=== PATIENT | female | born 1950 | race Caucasian/White ===

== ENCOUNTER 2017-09-18 11:16 | Emergency (ER) | payer OTHER ==
--- OUTSIDE RECORDS SUMMARY | 2017-09-18 11:18 | XMS REPORT | Summary of Care ---
:1950 Author Name RefugioMarkoEveline Address Unavailable Unavailable , Care Team Providers Name Role Phone RefugioMarkoEveline Unavailable Unavailable Functional Status Name Dates Details Functional status health issues are not documented Status: Name Dates Details Cognitive status health issues are not documented Status: Problems Name Dates Details Type III open displaced supracondylar fracture of left femur with intracondylar extension, initial encounter (821.33, S72.462C) Status: Active Displaced transverse fracture of shaft of left ulna, initial encounter for open fracture type IIIA, IIIB, or IIIC (813.32, S52.222C) Status: Active Closed traumatic displaced fracture of shaft of left femur (821.01, S72.302A) Status: Active Displaced fracture of neck of right talus, initial encounter for closed fracture (825.21, S92.111A) Status: Active Medications Name Dates Details Medications not documented Allergies and Adverse Reactions Name Dates Details Allergy history not documented Status: Procedures Procedure Dates Details Procedures not documented Immunization Name Dates Details Immunizations not documented Social History Name Dates Details Unknown if ever smoked Vital Signs Date Test Result Details No Known Vitals to report Results Date Description Value Details Results not documented Plan of Care Name Dates Details Planned Observations Planned Goals not documented Instructions Name Dates Details Instructions not documented Encounters Appointment; RICCO NEWSOME M.D. On: 08-Feb-2017 9:00 Encounter Diagnosis: Problem not documented Appointment; RICCO NEWSOME M.D. On: 23-Feb-2017 7:30 Encounter Diagnosis: Problem not documented Appointment; RICCO NEWSOME M.D. On: 08-Mar-2017 12:00 Encounter Diagnosis: Problem not documented Appointment; ISABELLA CARMICHAEL NP On: 22-Mar-2017 12:00 Encounter Diagnosis: Problem not documented Appointment; RICCO NEWSOME M.D. On: 05-Apr-2017 12:15 Encounter Diagnosis: Problem not documented Appointment; RICCO NEWSOME M.D. On: 17-May-2017 12:00 Encounter Diagnosis: Problem not documented Appointment; RICCO NEWSOME M.D. On: 05-Jul-2017 12:30 Encounter Diagnosis: Problem not documented
[2017-09-18] MEDS ORDERED: ONDANSETRON 4 MG/2 ML VIAL ONE (11:49)
[2017-09-18] MEDS ORDERED: MORPHINE 4 MG/ML SYR ONE (11:49)
[2017-09-18 12:06] LABS: Potassium 3.7 mmol/L (3.5-5.1)
[2017-09-18 12:13] LABS: Absolute Monocytes 0.4 K/uL (0.1-1.3); Basophils % 0.6 % (0-1.3); Eosinophils % 3.2 % (0-4.4); Hematocrit 42.7 % (36.0-45.0); Lymphocytes % 18.2 % (15.3-44.8); MCV 92.9 fL (80-100); MPV 9.6 fL (7.6-11.3); Monocytes % 6.6 % (3.3-12.3); RBC Red Blood Cell Count 4.59 M/uL (3.86-4.86)
--- NOTE | 2017-09-18 13:08 | RAD REPORT ---
EXAM DESCRIPTION: RAD - Hip Left 2 View - 09/18/2017 12:09 pm CLINICAL HISTORY: Left hip pain status post fall FINDINGS: The lesser trochanter is avulsed superiorly. Mildly displaced intertrochanteric fracture i s seen. Fracture line probably involves the greater trochanter. No dislocation is seen. An intramedullary jose has been placed into the femoral diaphysis for a prior fracture.
--- NOTE | 2017-09-18 13:08 | RAD REPORT ---
EXAM DESCRIPTION: RAD - Pelvis - 09/18/2017 12:11 pm CLINICAL HISTORY: Pelvic pain status post fall FINDINGS: The lesser trochanter is avulsed superiorly. Mildly displaced intertrochanteric fracture is seen. Fra cture line probably involves the greater trochanter. No dislocation is seen. An intramedullary jose has been placed into the femoral diaphysis for a prior fracture.
--- NOTE | 2017-09-18 13:08 | RAD REPORT ---
EXAM DESCRIPTION: RAD - Femur Left - 09/18/2017 12:36 pm CLINICAL HISTORY: Left leg pain status post fall FINDINGS: Intramedullary jose, sideplate and screws affix a distal femoral fracture in good alignment No acute fracture is seen involving the mid and distal left femur. The bones are osteoporotic Please refer to left hip and pelvis report for proximal femoral findings.
[2017-09-18 14:42] LABS: Urine Blood NEGATIVE (NEG); Urine Glucose NEGATIVE (NEG); Urine Protein NEGATIVE (NEG); Urine Specific Gravity 1.015 (1.005-1.030)
[2017-09-18] MEDS ORDERED: FENTANYL CITR 100 MCG/2 ML ONE ×2 (15:49→17:26)
--- NOTE | 2017-09-18 16:37 | ER ---
Nurse's Notes [facility] Name: Cait Larose Age: 67 yrs Sex: Female : 1950 Arrival Date: 09/18/2017 Time: 11:18 Bed 16 Private MD: Diagnosis: Intertrochanteric fracture of femur Presentation: 09/18 11:19 Presenting complaint: EMS states: Pt fell from bed this AM, denies LOC, c/o pain in L ph hip, pt hx of L hip pain r/t previous surgeries, L leg noted to be shortened and outwardly rotated, pt rated pain 10/10, 50 mcg Fentanyl administered IV, pain decreased to 5/10 at this time. Transition of care: patient was not received from another setting of care. Onset of symptoms was September 18, 2017. Risk Assessment: Do you want to hurt yourself or someone else? Patient reports no desire to harm self or others. Initial Sepsis Screen: Does the patient meet any 2 criteria? No. Patient's initial sepsis screen is negative. Does the patient have a suspected source of infection? No. Patient's initial sepsis screen is negative. Note Pt w/ bruise noted to L side of forehead, reports falling yesterday as well, states, " I was rushing to answer the door and I fell then too." Pt denies LOC. Care prior to arrival: Medication(s) given: Fentanyl 50 mcg IV initiated. 20 GA, in the right antecubital area. 11:19 Method Of Arrival: EMS: [facility] ph 11:19 Acuity: LESLEE 3 ph Historical: - Allergies: 11:31 No Known Allergies; ph - Home Meds: 11:31 duloxetine 60 mg oral cpDR 1 cap once daily [Active]; metoprolol tartrate 25 mg Oral ph tab 1 tab 2 times per day [Active]; furosemide 40 mg Oral tab 1 tab once daily [Active]; Vitamin D Oral 5000 unit daily [Active]; biotin 5000 mcg oral cap daily [Active]; - PMHx: 11:31 COPD; Hypertension; ph 12:06 Traumatic Brain Injury; ph - PSHx: 11:31 bone graft L leg; ph - Immunization history:: Adult Immunizations unknown. - Social history:: Smoking status: Patient uses tobacco products, smokes one pack cigarettes per day. - Ebola Screening: : No symptoms or risks identified at this time. Screenin:34 Abuse screen: Denies threats or abuse. Denies injuries from another. Nutritional ph screening: No deficits noted. Tuberculosis screening: No symptoms or risk factors identified. Fall Risk Fall in past 12 months (25 points). No secondary diagnosis (0 pts). IV access (20 points). Ambulatory Aid- None/Bed Rest/Nurse Assist (0 pts). Gait- Weak (10 pts.). Mental Status- Oriented to own ability (0 pts). Total Dsouza Fall Scale indicates High Risk Score (45 or more points). Fall prevention measures have been instituted. Side Rails Up X 2 Placed Close to Nursing Station Frequent Obs/Assessments Occuring As available patient and family educated on Fall Prevention Program and Strategies. Assessment: 11:35 General: Appears in no apparent distress. uncomfortable, slender, Behavior is calm, ph cooperative, appropriate for age, Denies fever, feeling ill. Pain: Complains of pain in left hip Pain currently is 5 out of 10 on a pain scale. at worst was 10 out of 10 on a pain scale. Neuro: Level of Consciousness is awake, alert, obeys commands, Oriented to person, place, time, situation. Cardiovascular: Capillary refill < 3 seconds Patient's skin is warm and dry. Pulses are palpable in right dorsalis pedis artery and left dorsalis pedis artery. Respiratory: Airway is patent Respiratory effort is even, unlabored, Respiratory pattern is regular, symmetrical. GI: No signs and/or symptoms were reported involving the gastrointestinal system. Derm: Skin is intact, is healthy with good turgor, Skin is pink, warm \\T\\ dry. Bruising that is dark purple, on left side of forehead. Musculoskeletal: Circulation, motion, and sensation intact. L leg noted to be shortened and rotated outwards. 12:35 Reassessment: Patient appears in no apparent distress at this time. Patient and/or ph family updated on plan of care and expected duration. Pain level reassessed. Patient is alert, oriented x 3, equal unlabored respirations, skin warm/dry/pink. 14:00 Reassessment: Patient appears in no apparent distress at this time. No changes from ph previously documented assessment. Patient and/or family updated on plan of care and expected duration. Pain level reassessed. Patient is alert, oriented x 3, equal unlabored respirations, skin warm/dry/pink. 15:11 Reassessment: Patient appears in no apparent distress at this time. Patient and/or ph family updated on plan of care and expected duration. Pain level reassessed. Patient is alert, oriented x 3, equal unlabored respirations, skin warm/dry/pink. Pt resting quietly, rates pain 3/10 and denies nausea at this time, states, " The pain isn't too bad unless I move around a lot." Family at bedside, VSS, will continue to monitor. 16:45 Reassessment: Patient appears in no apparent distress at this time. Patient and/or ph family updated on plan of care and expected duration. Pain level reassessed. Pt asleep, respirations even and unlabored, report called to RYNE Cardenas at [facility] ED, awaiting EMS for transport. 17:38 Reassessment: Patient appears in no apparent distress at this time. Patient and/or ph family updated on plan of care and expected duration. Pain level reassessed. Patient is alert, oriented x 3, equal unlabored respirations, skin warm/dry/pink. [facility] at bedside, report given to leather splitter, pt medicated for pain before transfer. Vital Signs: 11:25 BP 171 / 70; Pulse 64; Resp 18; Temp 97.8; Pulse Ox 96% on 2 lpm NC; Weight 50.35 kg; ph Height 5 ft. 2 in. (157.48 cm); Pain 5/10; 12:19 BP 173 / 55; Pulse 61; Resp 19; Pulse Ox 95% on R/A; mh5 14:22 BP 132 / 48; Pulse 44; Resp 18; Pulse Ox 93% on R/A; mh5 15:13 BP 150 / 52; Pulse 72; Resp 20; Pulse Ox 94% on R/A; ph 16:00 BP 135 / 56; Pulse 71; Resp 16; Pulse Ox 94% on R/A; ph 17:10 BP 141 / 51; Pulse 64; Resp 18; Pulse Ox 94% on R/A; Pain 2/10; ph 11:25 Body Mass Index 20.30 (50.35 kg, 157.48 cm) ED Course: 11:18 Patient arrived in ED. ph 11:20 Raheel Roe MD is Attending Physician. tw4 11:25 Triage completed. ph 11:26 Arm band placed on. ph 11:35 Patient has correct armband on for positive identification. Placed in gown. Bed in low ph position. Call light in reach. Side rails up X2. Pulse ox on. NIBP on. Warm blanket given. 11:35 Maintain EMS IV. Dressing intact. Good blood return noted. Site clean \\T\\ dry. Gauge \\T\\ ph site: 20 RAC. 11:46 Initial lab(s) drawn, by me, sent to lab. Maintain EMS IV. Dressing intact. mh5 11:47 Patient has correct armband on for positive identification. Fall risk band placed. mh5 Placed in gown. Bed in low position. Call light in reach. Side rails up X2. Warm blanket given. Pillow given. svp research and strategic analysis on. Pulse ox on. NIBP on. 11:47 Basic Metabolic Panel Sent. mh5 11:47 Basic Metabolic Panel Sent. 5 11:47 CBC with Diff Sent. 5 11:47 Creatinine for Radiology Sent. 5 11:47 Type And Screen Sent. mh5 12:05 Leonor Lee, RN is Primary Nurse. ph 12:06 X-ray completed. Portable x-ray completed in exam room. Patient tolerated procedure sw well. 12:10 XRAY Pelvis In Process Unspecified. EDMS 12:10 Hip Left 2 View XRAY In Process Unspecified. EDMS 12:19 X-ray completed. Portable x-ray completed in exam room. Patient tolerated procedure jb2 well. 12:20 Femur Left XRAY In Process Unspecified. EDMS 14:21 Silveira cath inserted, using sterile technique, 16 Fr., by vt, balloon inflated, to 5 gravity drainage, urine specimen collected. 14:22 Urine Dipstick--Ancillary (enter results) Sent. mh5 15:14 No provider procedures requiring assistance completed. ph 17:40 Patient transferred, IV remains in place. ph Administered Medications: 12:54 CANCELLED (Physician Discretion): TORadol 30 mg IVP once tw4 12:56 Drug: morphine 4 mg Route: IVP; Site: right antecubital; ph 15:59 Follow up: Response: No adverse reaction; Marked relief of symptoms ch 12:56 Drug: Zofran 4 mg Route: IVP; Site: right antecubital; ph 15:59 Follow up: Response: No adverse reaction ch 15:59 Drug: fentaNYL (PF) 25 mcg Route: IVP; Site: right antecubital; ch 16:40 Follow up: Response: No adverse reaction; Pain is decreased ph 17:25 Drug: fentaNYL (PF) 25 mcg Route: IVP; Site: right antecubital; ph 17:38 Follow up: Response: No adverse reaction ph 17:37 Drug: fentaNYL (PF) 25 mcg Route: IVP; Site: right antecubital; ph 17:39 Follow up: Response: No adverse reaction ph Output: 17:37 Urine: 300ml (Silveira); Total: 300ml. ph Outcome: 16:36 ER care complete, transfer ordered by . tw4 17:40 Patient left the ED. ph 17:40 Transferred by ground EMS to [facility], Transfer form completed. X-rays sent ph w/ patient. 17:40 Condition: stable 17:40 Instructed on the need for transfer. Signatures: Dispatcher [employer] EDYesy Noel, RYNE MICHELE Jaya Gaxiola Patricia, RN RN Rashi, Chantal Mccray [facility] Raheel Roe MD MD tw4 Corrections: (The following items were deleted from the chart) 11:34 11:25 BP 171 / 70; Pulse 64bpm; Resp 18bpm; Pulse Ox 96% 2 lpm Nasal Cannula; Temp ph 97.8F; Pain 5/10; ph
--- NOTE | 2017-09-18 16:37 | EDPHYS ---
Physician Documentation [facility] Name: Cait Larose Age: 67 yrs Sex: Female : 1950 Arrival Date: 09/18/2017 Time: 11:18 Bed 16 Private MD: ED Physician Raheel Roe HPI: 09/18 14:21 This 67 yrs old Female presents to ER via EMS with complaints of Hip Pain. tw4 14:21 The patient or guardian reports an injury, pain. that occurred at home, sustained from tw4 a fall, the left lower extremity is shortened, left leg is externally rotated, The patient is not able to ambulate. Patient is not able to bear weight. The complaints affect the left upper thigh. Onset: The symptoms/episode began/occurred today. Modifying factors: The symptoms are alleviated by nothing, the symptoms are aggravated by nothing. Associated signs and symptoms: Loss of consciousness: the patient experienced no loss of consciousness. Severity of symptoms: At their worst the symptoms were moderate, in the emergency department the symptoms are unchanged. The patient has not experienced similar symptoms in the past. Historical: - Allergies: 11: No Known Allergies; ph - Home Meds: 11:31 duloxetine 60 mg oral cpDR 1 cap once daily [Active]; metoprolol tartrate 25 mg Oral ph tab 1 tab 2 times per day [Active]; furosemide 40 mg Oral tab 1 tab once daily [Active]; Vitamin D Oral 5000 unit daily [Active]; biotin 5000 mcg oral cap daily [Active]; - PMHx: 11:31 COPD; Hypertension; ph 12:06 Traumatic Brain Injury; ph - PSHx: 11:31 bone graft L leg; ph - Immunization history:: Adult Immunizations unknown. - Social history:: Smoking status: Patient uses tobacco products, smokes one pack cigarettes per day. - Ebola Screening: : No symptoms or risks identified at this time. ROS: 14:21 Constitutional: Negative for fever, chills, and weight loss, Cardiovascular: Negative tw4 for chest pain, palpitations, and edema, Respiratory: Negative for shortness of breath, cough, wheezing, and pleuritic chest pain, Abdomen/GI: Negative for abdominal pain, nausea, vomiting, diarrhea, and constipation. 14:21 MS/extremity: Positive for injury or acute deformity, decreased range of motion, deformity, of the left upper thigh. Exam: 14:21 Constitutional: This is a well developed, well nourished patient who is awake, alert, tw4 and in no acute distress. Head/Face: Normocephalic, atraumatic. Chest/axilla: Normal chest wall appearance and motion. Nontender with no deformity. No lesions are appreciated. Cardiovascular: Regular rate and rhythm with a normal S1 and S2. No gallops, murmurs, or rubs. Normal PMI, no JVD. No pulse deficits. Respiratory: Lungs have equal breath sounds bilaterally, clear to auscultation and percussion. No rales, rhonchi or wheezes noted. No increased work of breathing, no retractions or nasal flaring. Abdomen/GI: Soft, non-tender, with normal bowel sounds. No distension or tympany. No guarding or rebound. No evidence of tenderness throughout. Back: No spinal tenderness. No costovertebral tenderness. Full range of motion. 14:21 Musculoskeletal/extremity: Extremities: noted in the left upper thigh: decreased ROM, deformity, ROM: limited active range of motion due to pain, limited passive range of motion due to pain, Circulation is intact in all extremities. Vital Signs: 11:25 BP 171 / 70; Pulse 64; Resp 18; Temp 97.8; Pulse Ox 96% on 2 lpm NC; Weight 50.35 kg; ph Height 5 ft. 2 in. (157.48 cm); Pain 5/10; 12:19 BP 173 / 55; Pulse 61; Resp 19; Pulse Ox 95% on R/A; mh5 14:22 BP 132 / 48; Pulse 44; Resp 18; Pulse Ox 93% on R/A; mh5 15:13 BP 150 / 52; Pulse 72; Resp 20; Pulse Ox 94% on R/A; ph 16:00 BP 135 / 56; Pulse 71; Resp 16; Pulse Ox 94% on R/A; ph 17:10 BP 141 / 51; Pulse 64; Resp 18; Pulse Ox 94% on R/A; Pain 2/10; ph 11:25 Body Mass Index 20.30 (50.35 kg, 157.48 cm) ph MDM: 11:20 Patient medically screened. tw4 21:32 Differential diagnosis: hip fracture, intertrochanteric fracture, femoral neck tw4 fracture, femoral shaft fracture. Data reviewed: vital signs, nurses notes. Data interpreted: Pulse oximetry: Interpretation: normal. Test interpretation: by ED physician or midlevel provider: plain radiologic studies. Counseling: I had a detailed discussion with the patient and/or guardian regarding: the historical points, exam findings, and any diagnostic results supporting the discharge/admit diagnosis, lab results, radiology results. Medication response: morphine markedly relieved the patient's pain. Symptoms have improved. Response to treatment: and as a result, I will admit patient. Physician consultation: Tian Day MD after a discussion of the case, a recommendation for transfer for higher level of care is made. ED course: D/W pt's orthopedic surgeon service at [facility] will accept for transfer. 09/18 11:23 Order name: Basic Metabolic Panel tw4 09/18 11:23 Order name: CBC with Diff; Complete Time: 12:47 tw4 09/18 11:23 Order name: Creatinine for Radiology; Complete Time: 12:47 tw4 09/18 11:23 Order name: Type And Screen; Complete Time: 12:47 tw4 09/18 11:23 Order name: Basic Metabolic Panel; Complete Time: 12:47 EDMS 09/18 14:21 Order name: Urine Dipstick--Ancillary (enter results); Complete Time: 15:53 bd 09/18 11:23 Order name: XRAY Pelvis; Complete Time: 13:51 tw4 09/18 11:23 Order name: Hip Left 2 View XRAY; Complete Time: 13:51 tw4 09/18 12:14 Order name: Femur Left XRAY; Complete Time: 13:51 tw4 09/18 11:23 Order name: Labs collected and sent; Complete Time: 11:38 tw4 Administered Medications: 12:54 CANCELLED (Physician Discretion): TORadol 30 mg IVP once tw4 12:56 Drug: morphine 4 mg Route: IVP; Site: right antecubital; ph 15:59 Follow up: Response: No adverse reaction; Marked relief of symptoms ch 12:56 Drug: Zofran 4 mg Route: IVP; Site: right antecubital; ph 15:59 Follow up: Response: No adverse reaction ch 15:59 Drug: fentaNYL (PF) 25 mcg Route: IVP; Site: right antecubital; ch 16:40 Follow up: Response: No adverse reaction; Pain is decreased ph 17:25 Drug: fentaNYL (PF) 25 mcg Route: IVP; Site: right antecubital; ph 17:38 Follow up: Response: No adverse reaction ph 17:37 Drug: fentaNYL (PF) 25 mcg Route: IVP; Site: right antecubital; ph 17:39 Follow up: Response: No adverse reaction ph Disposition: 09/18/17 16:36 Transfer ordered to [facility]. Diagnosis is Intertrochanteric fracture of femur. - Reason for transfer: Higher level of care. - Accepting physician is Dr Alonzo. - Condition is Stable. - Problem is new. - Symptoms have worsened. Signatures: Dispatcher [employer] EDKS Yesy Metz, RN RN Leonor Lee RN RN Raheel Roe MD MD tw4 Corrections: (The following items were deleted from the chart) 12:54 12:48 TORadol 30 mg IVP once ordered. tw4 tw4 14:21 12:48 Lumbar Spine Wo Con+MRI.RAD.BRZ ordered. [facility] EDKS 17:40 16:36 09/18/2017 16:36 Transfer ordered to [facility]. ph Diagnosis is Intertrochanteric fracture of femur. Reason for transfer: Higher level of care. Accepting physician is Dr Alonzo. Condition is Stable. Problem is new. Symptoms have worsened. tw4
== END 2017-09-18 17:40 | disposition short-term general hospital (02) ==
LOC: ER 11:16
DX: S72.142A Displaced intertrochanteric fracture of left femur, initial encounter for closed fracture (principal); F17.210 Nicotine dependence, cigarettes, uncomplicated; I10 Essential (primary) hypertension; J44.9 Chronic obstructive pulmonary disease, unspecified; W18.30XA Fall on same level, unspecified, initial encounter; Y93.9 Activity, unspecified; Y92.009 Unspecified place in unspecified non-institutional (private) residence as the place of occurrence of the external cause
CPT/HCPCS: 36415; 72170; 73502; 73552; 80048; 81003; 85025; 86850; 86900; 86901; J2405; J3010 ×2; 51702; 96374; 96375; 99285

== ENCOUNTER 2020-07-23 18:25 | Emergency (ER) | payer OTHER ==
--- OUTSIDE RECORDS SUMMARY | 2020-07-23 18:38 | XMS REPORT | Continuity of Care Document ---
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 09/19/17 15:17:00 CDT propofol No Route: IV, Mem oria (ANES) 8-15 Drug form: l 20:17: INJ, ONCE, Stop date: 09/19/17 15:17:00 CDT fentaNYL No Route: IV, Mem oria (ANES) 8-15 Drug form: l 20:17: INJ, ONCE, Stop date: 09/19/17 15:17:00 CDT ceFAZolin No Route: IV, Me moria (ANES) 8-15 Drug form: l 20:07: INJ, ONCE, Stop date: 09/19/17 15:07:00 CDT phenylephri No Route: IV, Memoria ne (ANES) 8-15 Drug form: l 20:02: INJ, ONCE, Stop date: 09/19/17 15:02:00 CDT Lactated No Route: IV, Mem oria Ringers 8-15 Total l Injection 19:07: Volume: Octavia nn IV (ANES) 00 1,000, 1000 mL Start date: 09/19/17 14:07:00 CDT, Stop date: 09/19/17 15:07:00 CDT Furosemide No Notes: Memor ia 40 MG Oral 8-15 (Same as: l Tablet 14:00: Lasix) May cause GI upset. Give with food or milk. duloxetine No Notes: Memor ia 8-15 (Same as: l 14:00: Cymbalta) (Do Not Crush) acetaminoph No Notes: Max Memoria en 8-15 acetaminop l 14:00: hen 4000 [place] 00 mg/day (4 gm/day). (Same as: Tylenol Extra Strength) Vitamin D3 No Notes: Memor ia 8-15 Same as: l 14:00: Vitamin D3 Calcium No Notes: Memoria Carbonate 8-15 (Same As: l 500 MG 14:00: Tums) [place] Chewable 00 Calcium Tablet Carbonate 500 mg = 200 mg elemental calcium Dose = mg calcium carbonate ( mg elemental calcium) Albuterol No Notes: Memori a 0.833 MG/ML 8-15 (Same as: l / 14:00: Duoneb) Ipratropium 00 [place] 0.167 MG/ML Inhalant Solution POLYETHYLEN No Notes: Jacobo carolann E GLYCOL 8-15 Dissolve l 3350 14:00: in 8 oz of Wilfredo 00 water or juice. (Same as: Miralax) Docusate No Notes: Memoria 8-15 (Same as: l 14:00: Colace) (Do Not Crush) tiotropium No Notes: Memor ia 0.018 8-15 (Same As: l MG/ACTUAT 14:00: Spiriva) Herm [place] Inhalant 00 Powder [Spiriva] [place] No Notes: Memoria Thyroid 8-15 (Same As: l 14:00: [place] Wilfredo 00 Thyroid, S-P-T) tamsulosin No Notes: Memor ia 8-15 (Same As: l 14:00: Flomax) "Do Not Crush" Pravastatin No Notes: Jacobo carolann 8-15 (Same as: l 14:00: Pravachol) Wilfredo Singulair No Notes: Memori a 8-15 (Same l 14:00: as:Singula ir) Omeprazole No 20 mg, Memor ia 8-15 Route: PO, l 14:00: Drug form: ECTAB, Daily, Dosing Weight 50.455, kg, Start date: 09/19/17 9:00:00 CDT, Duration: 30 day, Stop date: 10/18/17 9:00:00 CDT metoprolol No Notes: Memor ia tartrate 8-15 (Same as: l 14:00: Lopressor) Protonix No Notes: Memoria 8-15 Tablet l 14:00: should not be chewed or crushed. (Same as: Protonix) pneumococca No 0.5 mL, Mem oria l capsular 8-15 Route: IM, l polysacchar 08:01: Her BRIELLE cuello levi type 1 08 Start vaccine / date: pneumococca 09/19/17 l capsular 3:01:08 polysacchar CDT, Stop levi type date: 10A vaccine 10/19/17 / 2:56:08 pneumococca CDT l capsular polysacchar levi type 11A vaccine / pneumococca l capsular polysacchar levi type 12F vaccine / pneumococca l capsular polysacchar Ceftriaxone No Notes: Jacobo carolann 8-15 (Same As: l 06:07: Rocephin). [place] 00 Use with 100 mL NS and infuse over 30 min MEDICATION WASTE Product Size: 1000 mg Product Wasted: 0 mg Enoxaparin No Notes: Memor ia 8-15 (Same as: l 06:00: Lovenox) Wilfredo Tramadol No Notes: Not Mem oria 8-15 to exceed l 06:00: 400mg/day. Wilfredo 00 (Same As: Ultram) Acetaminoph No Notes: Max Memoria en 8-15 acetaminop l 06:00: hen 4000 Wilfredo 00 mg/day (4 gm/day). (Same as: Tylenol Extra Strength) gabapentin No Notes: Memor ia 8-15 (Same as: l 06:00: Neurontin) [place] 00 Coreg No Notes: Memoria 8-15 Give with l 05:51: food. [place] 00 (Same As: Coreg) Oxycodone No Notes: Memori a Hydrochlori 8-15 (Same as: l de 5 MG 05:30: Roxicodone Herm ededee Oral Tablet ) Ondansetron No Notes: Jacobo carolann 8-15 (Same as: l 05:30: Zofran) [place] MEDICATION WASTE Product Size: 4 mg Product Wasted: 0 mg Fentanyl No 50 Memoria 8-15 microgram, l 05:09: Route: Wilfredo 00 IVP, ONCE, Dosing Weight 50.455, kg, Priority: STAT, Start date: 09/19/17 0:09:00 CDT, Stop date: 09/19/17 0:09:00 CDT Fentanyl 2018-0 No 50 Memoria 8-15 microgram, l 04:51: Route: Wilfredo 00 IVP, ONCE, Dosing Weight 50.455, kg, Priority: STAT, Start date: 09/18/17 23:51:00 CDT, Stop date: 09/18/17 23:51:00 CDT Fentanyl 2018-0 No 25 Memoria 8-15 microgram, l 01:49: Route: Wilfredo 00 IVP, ONCE, Dosing Weight 50.455, kg, Priority: STAT, Start date: 09/18/17 20:49:00 CDT, Stop date: 09/18/17 20:49:00 CDT bisacodyl 2016-02 Yes 10 mg = 1 Mem oria 10 mg 2-18 supp, RI, l rectal 17:45: Daily, PRN Octavia nn suppository 00 as needed for constipati on, # 5 supp, 0 Refill(s) docusate 2016-02 Yes 100 mg = Memor ia sodium 150 2-18 10 mL, PO, l mg/15 mL 17:45: Q12H, # Kofi n oral liquid 00 280 mL, 0 Refill(s) QUEtiapine 2016-02 Yes 100 mg = 1 M emoria 100 mg oral 2-18 tab, NG, l tablet 17:45: Bedtime, # Octavia nn 00 30 tab, 0 Refill(s) collagenase 2016-02 Yes 1 appl, Mem oria topical 250 2-18 TOP, l units/g 17:45: Daily, # Kofi n ointment 00 90 gm, 0 Refill(s) naproxen 2016-02 Yes 500 mg = 1 Mem oria 500 mg oral 2-18 tab, PEG, l tablet 17:45: Q12H, X 14 Octavia nn 00 day, # 28 tab, 0 Refill(s) Menthol 2016-02 Yes 1 appl, Memoria 0.0044 2-18 TOP, PRN, l MG/MG / 17:45: PRN Diaper Herm deedee Zinc Oxide 00 Rash, 0.2 MG/MG Topical Dosing, # Ointment 71 gm, 0 [Calmosepti Refill(s) ne Ointment] bacitracin 2016-02 Yes 1 appl, Jacobo carolann zinc 0.5 2-18 TOP, BID, l UNT/MG 17:45: X 14 day, Kofi n Topical 00 # 15 gm, 0 Ointment Refill(s) Calcium 2016-02 Yes 500 mg = 1 Jacobo carolann Carbonate 2-18 tab, PO, l 500 MG 17:45: Daily, # [place] Chewable 00 30 tab, 0 Tablet Refill(s) Clonidine 2016-02 Yes 0.1 mg = 1 Me moria Hydrochlori 2-18 tab, PO, l de 0.1 MG 17:45: Q4H, # 126 He rmann Oral Tablet 00 tab, 0 Refill(s) Melatonin 3 2016-02 Yes 9 mg = 3 Me moria MG Extended 2-18 tab, PO, l Release 17:45: Bedtime, X Herm [place]ee Tablet 00 10 day, # 30 tab, 0 Refill(s) Aspirin 325 2016-02 Yes 325 mg = 1 Memoria MG Oral 2-18 tab, PO, l Tablet 17:45: Daily, # [place] 00 30 tab, 0 Refill(s) tramadol 2016-02 Yes 50 mg = 1 Jacobo carolann hydrochlori 2-18 tab, PO, l de 50 MG 17:45: Q6H, PRN Octavia nn Oral Tablet 00 Pain Score 7-10, X 14 day, # 56 tab, 0 Refill(s) tamsulosin 2016-02 Yes 0.4 mg = 1 M emoria 0.4 mg oral 2-18 cap, PO, l capsule 17:45: Daily, # Kofi n 00 30 cap, 0 Refill(s) senna 8.6 2016-02 Yes 17.2 mg = Mem oria mg oral 2-18 2 tab, PO, l tablet 17:45: BID, X 14 Kofi n 00 day, # 56 tab, 0 Refill(s) QUEtiapine 2016-02 Yes 50 mg = 2 Me moria 25 mg oral 2-18 tab, PO, l tablet 17:45: Daily, # [place] 00 60 tab, 0 Refill(s) Albuterol 2016-02 Yes 3 mL, NEB, Me moria 0.833 MG/ML 2-18 PRN, PRN l / 17:45: Respirator Wilfredo Ipratropium 00 y [place] Protocol, 0.167 MG/ML # 180 mL, Inhalant 0 Solution Refill(s) Vitamin D3 2016-02 Yes 2,000 Memori a 2000 intl 2-18 IntlUnit = l units oral 17:45: 1 tab, PO, H ermann tablet 00 Daily, # 30 tab, 0 Refill(s) acetaminoph 2016-02 Yes 1,000 mg = Memoria en 500 mg 2-18 2 tab, PO, l oral tablet 17:45: Q6H, X 10 H ermann 00 day, # 80 tab, 0 Refill(s) senna 8.6 2016-02 No Notes: Memori a mg oral 2-18 (Same as: l tablet 15:00: Senokot) Naproxen 2016-02 No 375 mg, Memori a 2-15 Route: PO, l 23:00: Drug form: [place] 00 ECTAB, BID, Dosing Weight 72, kg, Start date: 01/19/17 17:00:00 [employer], Duration: 30 day, Stop date: 02/18/17 9:00:00 [employer] bacitracin 2016-02 No 1 appl, Jacobo carolann zinc 0.5 -15 Route: l UNT/MG 23:00: TOP, BID, Kofi n Topical 00 Drug form: Ointment OINT, Start date: 01/19/17 17:00:00 [employer], Duration: 30 day, Stop date: 02/18/17 9:00:00 [employer] Clonidine 2016-02 No Notes: Memori a Hydrochlori 2-15 (Same As: l de 0.1 MG 22:00: Catapres) Her cuello Oral Tablet Clonidine 2016-02 No Notes: Memori a Hydrochlori 2-14 (Same As: l de 0.1 MG 06:00: Catapres) Her cuello Oral Tablet Clonidine 2016-02 No Notes: Memori a Hydrochlori 2-14 (Same As: l de 0.2 MG 01:00: Catapres) Her cuello Oral Tablet Clonidine 2016-02 No 2 tab, Memori a Hydrochlori 2-14 Route: PO, l de 0.1 MG 00:00: Drug form: He rmann Oral Tablet 00 TAB, Q6H, Dosing Weight 72, kg, Start date: 01/17/17 18:00:00 [employer], Duration: 30 day, Stop date: 02/16/17 12:00:00 [employer] Clonidine 2016-02 No Notes: Memori a Hydrochlori -12 (Same As: l de 0.1 MG 18:00: Catapres) Her cuello Oral Tablet 00 DULoxetine 2016-02 Yes 60 mg = 1 Me moria 60 mg oral 2-12 cap, PO, l delayed 17:41: Daily, 0 Kofi n release 00 Refill(s) capsule omeprazole 2016-02 Yes 20 mg = 1 Me moria 20 mg oral 2-12 tab, PO, l enteric 17:41: Daily, 0 Kofi n coated 00 Refill(s) tablet metoprolol 2016-02 Yes 25 mg = 1 Me moria tartrate 25 2-12 tab, PO, l mg oral 17:41: BID, 0 [place] tablet 00 Refill(s) tiotropium 2016-02 Yes 18 Memoria 0.018 2-12 microgram l MG/ACTUAT 17:41: = 1 cap, Herm [place] Inhalant 00 INHALATION Powder , Daily, 0 [Spiriva] Refill(s) pravastatin 2016-02 Yes 40 mg = 1 M emoria 40 mg oral 2-12 tab, PO, l tablet 17:41: Daily, 0 Wilfredo 00 Refill(s) montelukast 2016-02 Yes 10 mg = 1 M emoria 10 MG Oral 2-12 tab, PO, l Tablet 17:41: Daily, 0 [place] [Singulair] 00 Refill(s) thyroid 2016-02 Yes 120 mg = 1 Jacobo carolann (JAIL) 120 2-12 tab, PO, l MG Oral 17:41: Daily, 0 Kofi n Tablet 00 Refill(s) [[place] Thyroid] Furosemide 2016-02 Yes 40 mg = 1 Me moria 40 MG Oral 2-12 tab, PO, l Tablet 17:41: Daily, 0 Wilfredo 00 Refill(s) Clonidine 2016-02 No Notes: Memori a 2-09 (Same As: l 18:00: Catapres) Wilfredo 00 Haldol 2016-02 No Notes: Memoria 2- (Same as: l 17:04: Haldol) [place] 00 calcium 2016-02 No Notes: Memoria carbonate - (Same As: l 15:00: Tums) [place] 00 Calcium Carbonate 500 mg = 200 mg elemental calcium Dose = mg calcium carbonate ( mg elemental calcium) Acetaminoph 2016-02 No Notes: Max Memoria en 03-15 acetaminop l 18:00: hen 4000 Wilfredo 00 mg/day (4 gm/day). (Same as: Tylenol Extra Strength) Ciprofloxac 2016-02 No Notes: May Memoria in 03-15 interfere l 18:00: w/enteral Wilfredo 00 feedings - Take 1 hr before or 2 hrs after antacids, dairy pdt & minerals. On empty stomach. Calcium 2016-02 No 950 mg, 1 Memor ia Citrate 03-15 tab, l 15:00: Route: PO, [place] 00 Drug form: TAB, Daily, Dosing Weight 72, kg, Start date: 01/12/17 9:00:00 [employer], Duration: 30 day, Stop date: 02/10/17 9:00:00 [employer] Vitamin D3 2016-02 No Notes: Memor ia 2000 intl 08 Same as : l units oral 15:00: Vitamin D3 H ermann tablet 00 tramadol 2016-02 No Notes: Not Mem oria hydrochlori 07 to exceed l de 50 MG 21:29: 400mg/day. Her cuello Oral Tablet 00 (Same As: Ultram) Clonidine 2016-02 No Notes: Memori a 2-06 (Same As: l 19:30: Catapres) Wilfredo 00 Hydralazine 2016-02 No Notes: Jacobo carolann 2-06 (Same as: l 19:30: Apresoline ) Push over 5 minutes Labetalol 2016-02 No 10 mg, 2 Jacobo carolann 2-06 mL, Route: l 19:18: IVP, Drug form: INJ, Q4H, Dosing Weight 72, kg, PRN Hypertensi on, Start date: 01/10/17 13:18:00 [employer], Duration: 3 doses or times, Stop date: Limited # of times Clonidine 2016-02 No Notes: Memori a 2-05 (Same As: l 18:00: Catapres) [place] 00 Lopressor 2016-02 No Notes: Memori a 2-05 (Same as: l 15:00: Lopressor) Wilfredo Amlodipine 2016-02 No Notes: Memor ia 2-05 (Same as: l 15:00: Norvasc) [place] 00 Lopressor 2016-02 No Notes: Memori a 2-04 (Same as: l 22:00: Lopressor) metoprolol 2016-02 No 50 mg, Memor ia tartrate 2-04 Route: PO, l 17:00: Drug form: Wilfredo TAB, Q8Hnow, Dosing Weight 72, kg, Start date: 01/08/17 11:00:00 [employer], Duration: 30 day, Stop date: 02/07/17 3:00:00 [employer] Lopressor 2016-02 No Notes: Memori a 2-04 (Same as: l 16:27: Lopressor) Magnesium 2016-02 No Notes: Memori a Sulfate 2-04 WASTE: F/P l 15:26: - Sink; E - Municipal Trash Bin Tramadol 2016-02 No Notes: Not Mem oria 2-03 to exceed l 15:53: 400mg/day. (Same As: Ultra) amLODIPine 2016-02 No Notes: Memor ia 2-03 (Same as: l 15:15: Norvasc) metoprolol 2016-02 No Notes: Memor ia tartrate 2-03 (Same as: l 03:00: Lopressor) Flomax 2016-02 No Notes: Memoria 2-02 (Same As: l 18:35: Flomax) "Do Not Crush" metoprolol 2016-02 No 12.5 mg, Mem oria extended 2-02 Route: PO, l release 15:57: Drug form: ERTAB, ONCE, Priority: NOW, Start date: 01/06/17 9:57:00 [employer], Stop date: 01/06/17 9:57:00 [employer] metoprolol 2016-02 No Notes: Memor ia tartrate 2-02 (Same as: l 15:57: Lopressor) 12.5 mg=1/2 X 25 mg TAB Naproxen 2016-02 No Notes: Memoria 2-02 (Same as: l 15:00: Naprosyn) Take with food. remove 2016-02 No Notes: Memoria patch 2-02 Remove old l 15:00: patch before applicatio n of new patch. WASTE: F/P - P Waste Black; E - P Waste Black Seroquel 2016-02 No Notes: Memoria 2-02 (Same as: l 03:00: SEROquel) Oxycodone 2016-02 No Notes: Memori a Hydrochlori 2-01 (Same as: l de 1 MG/ML 18:00: 'Roxicodon H ermann Oral 00 e) Solution Seroquel 2016-02 No Notes: Memoria 2- (Same as: l 17:30: SEROquel) Albuterol 2016-02 No Notes: Memori a 0.833 MG/ML 03-08 (Same as: l / 17:15: Duoneb) Ipratropium 00 [place] 0.167 MG/ML Inhalant Solution Nicotine 2016-02 No Notes: Memoria 2- (Same as: l 15:00: Habitrol) "Remove old patch before applicatio n of new patch" WASTE: F/P - P Waste Black; E - P Waste Black [facility], 2016-02 No Notes: Jacobo carolann JAIL 2- (Same as: l 15:00: Senokot) Oxycodone 2016-02 No Notes: Memori a Hydrochlori 2-01 (Same as: l de 1 MG/ML 14:59: 'Roxicodon H ermann Oral 00 e) Solution [facility] 2016-02 No 25 mg, Memoria 03-08 Route: PO, l 03:00: Drug form: TAB, Bedtime, Dosing Weight 72, kg, Start date: 01/04/17 21:00:00 [employer], Duration: 30 day, Stop date: 02/02/17 21:00:00 [employer] Melatonin 3 2016-02 No Notes: Jacobo carolann MG Extended 03-08 (Same as: l Release 03:00: Melatonin) Herm deedee Tablet Bisacodyl 2016-02 No Notes: Memori a 1-30 (Same As: l 20:24: Dulcolax, [place] 00 [place]-Lax) metoprolol 2016-02 No Notes: Memor ia tartrate 1-30 (Same as: l 03:00: Lopressor) 12.5 mg=1/2 X 25 mg TAB Miralax 2016-02 No Notes: Memoria 03-06 Dissolve l 03:00: in 8 oz of water or juice. (Same as: Miralax) Cefazolin 2016-02 No Notes: Memori a 03-05 (Same As: l 22:00: Ancef, Kefzol) MEDICATION WASTE Product Size: 1000 mg Product Wasted: ___ mg ePHEDrine 2016-02 No Route: IV, Me moria (ANES) 03-05 Drug form: l 15:47: INJ, ONCE, Stop date: 01/03/17 9:47:00 [employer] norepinephr 2016-02 No Route: IV, Memoria ine (ANES) 03-05 Drug form: l 15:37: INJ, ONCE, Stop date: 01/03/17 9:37:00 [employer] phenylephri 2016-02 No Route: IV, Memoria ne (ANES) 03-05 Drug form: l 15:37: INJ, ONCE, Stop date: 01/03/17 9:37:00 [employer] dexamethaso 2016-02 No Route: IV, Memoria ne (ANES) 03-05 Drug form: l 15:17: INJ, ONCE, Stop date: 01/03/17 9:17:00 [employer] fentaNYL 2016-02 No Route: IV, Mem oria (ANES) 03-05 Drug form: l 15:17: INJ, ONCE, Stop date: 01/03/17 9:17:00 [employer] hydromorpho 2016-02 No Route: IV, Memoria ne (ANES) 03-05 Drug form: l 15:12: INJ, ONCE, Stop date: 01/03/17 9:12:00 [employer] sennosides, 2016-02 No Notes: Jacobo carolann JAIL 03-05 (Same as: l 15:00: Senokot) Docusate 2016-02 No Notes: Memoria 03-05 (Same as: l 15:00: Colace) midazolam 2016-02 No Route: IV, Me moria (ANES) 03-05 Drug form: l 14:42: SOLN, 00 ONCE, Stop date: 01/03/17 8:42:00 [employer] ceFAZolin 2016-02 No Route: IV, moria (ANES) 03-05 Drug form: l 14:42: INJ, ONCE, Stop date: 01/03/17 8:42:00 [employer] rocuronium 2016-02 No Route: IV, [place] emoria (ANES) 03-05 Drug form: l 14:42: INJ, ONCE, Stop date: 01/03/17 8:42:00 [employer] propofol 2016-02 No Route: IV, Mem oria (ANES) 03-05 Drug form: l 14:42: INJ, ONCE, Stop date: 01/03/17 8:42:00 [employer] Lactated 2016-02 No Route: IV, Mem oria Ringers 03-05 Total l Injection 13:19: Volume: Octavia nn IV (ANES) 1,000, 1000 mL Start date: 01/03/17 7:19:00 [employer], Stop date: 01/03/17 8:19:00 [employer] famotidine 2016-02 No Notes: Memor ia 03-05 (Same as: l 03:00: Pepcid) PHOS-NaK 2016-02 No Notes: Memoria 03-05 (Same as: l 00:58: Phos-NaK) Each 1.5 gm pkt has 250mg phosphorou s. Mix w/2.5oz water and stir. Magnesium 2016-02 No Notes: Memori a Sulfate 03-05 WASTE: F/P l 00:58: - Sink; E - Municipal Trash Bin Tramadol 2016-02 No Notes: Not Mem oria 03-05 to exceed l 00:00: 400mg/day. [place] 00 (Same As: Ultram) Metoprolol 2016-02 No Notes: Memor ia 03-04 (Same as: l 22:39: Lopressor) Push over 2 minutes Lasix 2016-02 No Notes: Memoria 03-04 (Same as: l 22:00: Lasix) May cause GI upset. Give with food or milk. gabapentin 2016-02 No Notes: Memor ia 100 MG Oral 03-04 (Same as: l Capsule 22:00: Neurontin) AMIODarone 2016-02 No 2 mg/ml. Me moria 900 mg in 03-04 Use Glass l D5W 500 ml 21:58: Bottle or He rmann IV 900 mg + 00 Non PVC Dextrose 5% Bag "Use in Water IV 0.22 482 mL micron in-line filter" MEDICATION WASTE Product Size: 900 mg Product Wasted: ___ mg Amiodarone 2016-02 No 2 mg/ml. Me moria 03-04 "Recommend l 21:57: ation: Use Wilrfedo 00 an in-line filter during administra tion for continuous infusions to reduce the incidence of phlebitis" (Same as Codarone) MEDICATION WASTE Product Size: 150 mg Product Wasted: ___ mg Diltiazem 2016-02 No Notes: Memori a 03-04 (Same as: l 21:36: Cardizem) [place] 00 Metoprolol 2016-02 No Notes: Memor ia 03-04 (Same as: l 21:23: Lopressor) Push over 2 minutes Tramadol 2016-02 No 100 mg, Memori a 03-03 Route: PO, l 18:00: Drug form: Wilfredo 00 TAB, Q6H, Dosing Weight 72.727, kg, Start date: 01/01/17 12:00:00 [employer], Duration: 30 day, Stop date: 01/31/17 6:00:00 [employer] famotidine 2016-02 No 20 mg, Memor ia 03-03 Route: NG, l 15:00: Drug form: [place] 00 TAB, Q12H, Start date: 01/01/17 9:00:00 [employer], Duration: 30 day, Stop date: 01/30/17 21:00:00 [employer] Tramadol 2016-02 No Notes: Not Mem oria 03-03 to exceed l 15:00: 400mg/day. [place] 00 (Same As: Ultram) Atrovent 2016-02 No 2 puff, Memori a HFA 03-03 Route: l 15:00: INHALATION Wilfredo 00 , Dosing Weight 72, kg, QID, Start date: 01/01/17 9:00:00 [employer], Duration: 30 day, Stop date: 01/30/17 21:00:00 [employer] Vitamin D3 2016-02 No 2,000 Memori a 2000 intl 1-27 IntlUnit, l units oral 15:00: Route: PO, H ermann tablet 00 Daily, Dosing Weight 72, kg, Start date: 01/01/17 9:00:00 [employer], Duration: 30 day, Stop date: 01/30/17 9:00:00 [employer] Calcium 2016-02 No 1,200 mg, Memor ia Citrate 03-03 Route: PO, l 15:00: Daily, Wilfredo 00 Dosing Weight 72, kg, Start date: 01/01/17 9:00:00 [employer], Duration: 30 day, Stop date: 01/30/17 9:00:00 [employer] Furosemide 2016-02 No Notes: Memor ia 20 MG Oral - (Same as: l Tablet 14:00: Lasix) Wilfredo [Lasix] 00 May cause GI upset. Give with food or milk. gabapentin 2016-02 No Notes: Memor ia 100 MG Oral - (Same as: l Capsule 14:00: Neurontin) Herm deedee 00 Norepinephr 2016-02 No Notes: Not Memoria ine 1-27 for direct l 05:56: administra Wilfredo 00 tion - DILUTE. Protect from light. (Same as:Levophe d). Administer by either central venous catheter or peripheral ly-inserte d central catheter (PICC) line. Albuterol 2016-02 No Notes: Memori a 0.833 MG/ML - (Same as: l / 05:03: Duoneb) Wilfredo Ipratropium 00 [place] 0.167 MG/ML Inhalant Solution [DuoNeb] Lasix 2016-02 No Notes: Memoria 1-27 (Same as: l 05:01: Lasix) [place] 00 Fentanyl 2016-02 No 50 Memoria 1-27 microgram, l 04:53: Route: Wilfredo 00 IVP, Drug form: INJ, ONCE, Dosing Weight 72, kg, Start date: 12/31/16 22:53:00 [employer], Stop date: 12/31/16 22:53:00 [employer] propofol 10 2016-02 No Notes: If M emoria mg/mL 1-27 Diprivan - l (Titrate.) 04:53: change Octavia nn IV 1,000 mg 00 bottle & tubing every 12 hr Per state nursing law propofol can only be given by a nurse if patient is intubated or being intubated (unless the nurse is a BE[employer]ER). Same as: Diprivan Albuterol 2016-02 No 3 ml, Memoria 0.833 MG/ML 03-03 Route: l / 04:49: NEB, Drug Wilfredo Ipratropium 00 Form: [place] SOLN, 0.167 MG/ML Dosing Inhalant Weight 72, Solution kg, PRN, [DuoNeb] PRN Respirator y Protocol, Start date: 12/31/16 22:49:00 [employer], Duration: 30 day, Stop date: 01/30/17 22:48:00 [employer] Melatonin 3 2016-02 No Notes: Jacobo carolann MG Extended 03-03 (Same as: l Release 03:00: Melatonin) Herm deedee Tablet 00 Clonidine 2016-02 No Notes: Memori a 03-02 (Same As: l 18:00: Catapres) [place] 00 Menthol 2016-02 No Notes: Memoria 0.0044 03-02 (Same as: l MG/MG / 15:16: Calmosepti Herm deedee Zinc Oxide 00 ne) 0.2 MG/MG Topical Ointment [Calmosepti ne Ointment] gabapentin 2016-02 No Notes: Memor ia 100 MG Oral 03-02 (Same as: l Capsule 03:00: Neurontin) Herm deedee 00 famotidine 2016-02 No Notes: Memor ia 03-02 (Same as: l 03:00: Pepcid AC) Wilfredo 00 Tramadol 2016-02 No Notes: Not Mem oria 03-02 to exceed l 00:00: 400mg/day. [place] 00 (Same As: Ultram) Isolyte S 2016-02 No Notes: Memori a PH-7.4 - (Same as: l (Bolus) IV 22:01: Isolyte S He rmann 00 PH7.4) remove 2016-02 No Notes: Memoria patch 03-01 Remove l 20:00: patch 12 Wilfredo 00 hours after applicatio n each day. Clonidine 2016-02 No Notes: Memori a -25 (Same As: l 18:00: Catapres) Wilfredo 00 Isolyte S 2016-02 No Notes: Memori a PH-7.4 -25 (Same as: l (Bolus) IV 16:29: Isolyte S rmann PH 7.4) lidocaine 2016-02 No Notes: Memori a topical 1-25 Apply only l patch (5% 07:47: once for Herm deedee film) 00 up to 12 hours in a 24-hour period (12 hours on and 12 hours off). (Same as: Lidoderm) "Remove old patch before applicatio n of new patch" Saline 2016-02 No Notes: Memoria Flush 0.9% 1-24 (Same as: l 22:00: BD [place] 00 Posiflush) Lidocaine 2016-02 No Notes: Memori a Hydrochlori 1-24 (Same as: l de 10 MG/ML 18:00: Xylocaine) Wilfredo Injectable 00 Solution Saline 2016-02 No Notes: Memoria Flush 0.9% 1-24 (Same as: l 17:52: BD [place]fred[place] 00 Posiflush) Isolyte S 2016-02 No 500 mL, Memor ia PH-7.4 02-28 Route: IV, l (Bolus) IV 13:48: Dosing Octavia nn 00 Weight 72, kg, ONCE, Start date: 12/29/16 7:48:00 [employer], Stop date: 12/29/16 7:48:00 [employer] Isolyte S 2016-02 No Notes: Memori a PH-7.4 -24 (Same as: l (Bolus) IV 09:13: Isolyte S He rmann PH7.4) Monobasic 2016-02 No Notes: Memori a potassium -24 (Same as: l phosphate 03:00: Phos-NaK) Her cuello 155 MG / 00 Each 1.5 Sodium gm pkt has Phosphate, 250mg Monobasic phosphorou 350 MG Oral s. Mix Tablet w/2.5oz water and stir. Clonidine 2016-02 No Notes: Memori a 1-23 (Same As: l 18:00: Catapres) [place] 00 Oxycodone 2016-02 No Notes: Memori a Hydrochlori 1-23 (Same as: l de 1 MG/ML 17:51: 'Roxicodon H ermann Oral 00 e) Solution Oxycodone 2016-02 No 5 mg, 1 Memor ia Hydrochlori 1-23 tab, l de 5 MG 17:49: Route: PO, Herm deedee Oral Tablet 00 ONCE, Dosing Weight 72, kg, Priority: STAT, Start date: 12/28/16 11:49:00 [employer], Stop date: 12/28/16 11:49:00 [employer] Hydroxyzine 2016-02 No Notes: Jacobo carolann - (Same as: l 16:19: Atarax) Avoid alcohol. Santyl 2016-02 No Notes: Memoria - (Same As: l 15:00: Santyl) famotidine 2016-02 No Notes: Memor ia 02-27 (Same as: l 03:00: Pepcid) Oxycodone 2016-02 No Notes: Memori a Hydrochlori - (Same as: l de 1 MG/ML 17:20: 'Roxicodon H ermann Oral 00 e) Solution Labetalol 2016-02 No Notes: Memori a -22 With food. l 15:00: (Same [place] 00 as:Trandat e, Normodyne) Lasix 2016-02 No Notes: Memoria - (Same as: l 15:00: Lasix) May cause GI upset. Give with food or milk. Lasix 2016-02 No Notes: Memoria - (Same as: l 14:47: Lasix) MEDICATION WASTE Product Size: 40 mg Product Wasted: ___ mg Oxycodone 2016-02 No Notes: Memori a Hydrochlori - (Same as: l de 1 MG/ML 11:30: 'Roxicodon H ermann Oral 00 e) Solution ceFAZolin + 2016-02 No Notes: Jacobo carolann sterile - (Same As: l water 10 mL 06:30: Ancef, Herm deedee 00 Kefzol) MEDICATION WASTE Product Size: 1000 mg Product Wasted: ___ mg Lovenox 2016-02 No Notes: Memoria -22 (Same as: l 00:30: Lovenox) ondansetron 2016-02 No Route: IV, Memoria (ANES) 02-25 Drug form: l 22:02: INJ, ONCE, Wilfredo Stop date: 12/26/16 16:02:00 [employer] midazolam 2016-02 No Route: IV, Me moria (ANES) 02-25 Drug form: l 22:02: SOLN, Wilfredo 00 ONCE, Stop date: 12/26/16 16:02:00 [employer] ePHEDrine 2016-02 No Route: IV, Me moria (ANES) 02-25 Drug form: l 22:02: INJ, ONCE, Stop date: 12/26/16 16:02:00 [employer] Ancef 2016-02 No 1 gm, Memoria 02-25 Route: l 22:00: IVPB, Wilfredo 00 ABXQ8H, Dosing Weight 72, kg, Start date: 12/26/16 16:00:00 [employer], Duration: 1 day, Stop date: 12/27/16 8:00:00 [employer], ABX Indication : Bone/Joint Infection hydromorpho 2016-02 No Route: IV, Memoria ne (ANES) 02-25 Drug form: l 21:32: INJ, ONCE, Stop date: 12/26/16 15:32:00 [employer] phenylephri 2016-02 No Route: IV, Memoria ne (ANES) 02-25 Drug form: l 18:36: INJ, ONCE, Stop date: 12/26/16 12:36:00 [employer] fentaNYL 2016-02 No Route: IV, Mem oria (ANES) 02-25 Drug form: l 17:06: INJ, ONCE, Stop date: 12/26/16 11:06:00 [employer] ePHEDrine 2016-02 No Route: IV, Me moria (ANES) 02-25 Drug form: l 17:06: INJ, ONCE, Stop date: 12/26/16 11:06:00 [employer] ceFAZolin 2016-02 No Route: IV, Me moria (ANES) 02-25 Drug form: l 16:56: INJ, ONCE, Stop date: 12/26/16 10:56:00 [employer] rocuronium 2016-02 No Route: IV, M emoria (ANES) 02-25 Drug form: l 16:51: INJ, ONCE, Stop date: 12/26/16 10:51:00 [employer] Lactated 2016-02 No Route: IV, Mem oria Ringers 02-25 Total l Injection 15:48: Volume: Octavia nn IV (ANES) 00 1,000, 1000 mL Start date: 12/26/16 9:48:00 [employer], Stop date: 12/26/16 10:48:00 [employer] Sodium 2016-02 No Route: IV, Memor ia Chloride - Total l 0.9% IV 15:48: Volume: Wilfredo (ANES) 1000 00 1,000, mL Start date: 12/26/16 9:48:00 [employer], Stop date: 12/26/16 10:48:00 [employer] Cefazolin 2016-02 No Notes: Memori a 02-25 (Same As: l 08:00: Ancef, [place] 00 Kefzol) MEDICATION WASTE Product Size: 1000 mg Product Wasted: ___ mg albuterol 2016-02 No Notes: SEE Me moria 0.083% 02-25 RT l inhalation 03:55: DOCUMENTAT H ermann solution 00 ION (Same as: Proventil) Dextrose 2016-02 No 50 gm, 100 Mem oria 50% Syringe 1-21 mL, Route: l 02:30: IVP, Drug [place] 00 Form: INJ, Dosing Weight 72, kg, ONCE, Start date: 12/25/16 20:30:00 [employer], Stop date: 12/25/16 20:30:00 [employer] Insulin 2016-02 No 60 Memoria regular 1-21 units) l 02:30: WASTE: F/P [place] 00 - Black; E - Municipal Trash Bin Stable for 28 days at room temperatur e Expires in days from ____Date Lasix 2016-02 No Notes: Memoria -21 (Same as: l 02:30: Lasix) [place] 00 MEDICATION WASTE Product Size: 40 mg Product Wasted: ___ mg Albuterol 2016-02 No Notes: SEE Me moria 0.83 MG/ML - RT l Inhalant 02:30: DOCUMENTAT Her cuello Solution 00 ION (Same as: Proventil) hydromorpho 2016-02 No Route: IV, Memoria ne (ANES) + -20 Drug form: l sodium 21:43: INJ, ONCE, Octavia nn chloride 00 Stop date: (ANES) 3 mL 12/25/16 15:43:00 [employer] norepinephr 2016-02 No Route: IV, Memoria ine (ANES) 1-20 Drug form: l 10 21:21: INJ, Start [place] microgram date: 12/25/16 15:21:00 [employer], Stop date: 12/25/16 16:21:00 [employer] dexamethaso 2016-02 No Route: IV, Memoria ne (ANES) 1-20 Drug form: l 20:53: INJ, ONCE, [place] 00 Stop date: 12/25/16 14:53:00 [employer] norepinephr 2016-02 No Route: IV, Memoria ine (ANES) 1-20 Drug form: l 20:53: INJ, ONCE, [place] 00 Stop date: 12/25/16 14:53:00 [employer] calcium 2016-02 No Route: IV, Jacobo carolann chloride 1-20 Drug form: l (ANES) 20:48: INJ, ONCE, Octavia nn Stop date: 12/25/16 14:48:00 [employer] fentaNYL 2016-02 No Route: IV, Mem oria (ANES) 1-20 Drug form: l 20:47: INJ, ONCE, Wilfredo 00 Stop date: 12/25/16 14:47:00 [employer] propofol 2016-02 No Route: IV, Mem oria (ANES) 1-20 Drug form: l 20:47: INJ, ONCE, Wilfredo Stop date: 12/25/16 14:47:00 [employer] ePHEDrine 2016-02 No Route: IV, Me moria (ANES) 1-20 Drug form: l 20:42: INJ, ONCE, Wilfredo Stop date: 12/25/16 14:42:00 [employer] ceFAZolin 2016-02 No Route: IV, Me moria (ANES) 1-20 Drug form: l 20:42: INJ, ONCE, [place] Stop date: 12/25/16 14:42:00 [employer] propofol 2016-02 No Route: IV, Mem oria (ANES) 10 1-20 Drug form: l mg 19:23: INJ, Start [place] date: 12/25/16 13:23:00 [employer], Stop date: 12/25/16 14:23:00 [employer] midazolam 2016-02 No Route: IV, Me moria (ANES) 1-20 Drug form: l 18:32: SOLN, [place] 00 ONCE, Stop date: 12/25/16 12:32:00 [employer] Lactated 2016-02 No Route: IV, Mem oria Ringers 1-20 Total l Injection 18:04: Volume: Octavia nn IV (ANES) 00 1,000, 1000 mL Start date: 12/25/16 12:04:00 [employer], Stop date: 12/25/16 13:04:00 [employer] Amlodipine 2016-02 No Notes: Memor ia 1-20 (Same as: l 15:00: Norvasc) [place] 00 potassium 2016-02 No Notes: Memori a phosphate 1-20 (Same as: l 12:06: K Wilfredo Phosphate. ) 1 mMol phoshate has 1.47 mEq potassium Infuse over 4 hours Sodium 2016-02 No 250 mL, Memoria Chloride 1-20 Rate: On l 0.9% 11:48: call for [place] (titrate) 00 use with 250 mL blood product administra tion, Dosing Weight 72, kg, Route: IV, Total Volume: 250, Start Date: 12/25/16 5:48:00 [employer], Duration: 30 day, Stop date: 01/24/17 5:47:00 [employer], Replace Every: 1 hr Clonidine 2016-02 No Notes: Memori a Hydrochlori 1-20 (Same As: l de 0.1 MG 00:00: Catapres) Her cuello Oral Tablet 00 tamsulosin 2016-02 No Notes: Memor ia 1-19 (Same As: l 19:00: Flomax) [place] 00 "Do Not Crush" Oxycodone 2016-02 No Notes: Memori a Hydrochlori 1-19 (Same as: l de 1 MG/ML 18:22: 'Roxicodon H ermann Oral 00 e) Solution Norepinephr 2016-02 No = 65 mmHg, Memoria ine 1-19 Max Dose: l 06:04: 1 [place] 00 microgram/ kg/min, Route: IV, Dosing Weight 72 kg, Total Volume: 250, Start date: 12/24/16 0:04:00... Haldol 2016-02 No Notes: Memoria 1-19 (Same as: l 05:02: Haldol) Wilfredo 00 Oxycodone 2016-02 No Notes: Memori a Hydrochlori -19 (Same as: l de 1 MG/ML 02:32: 'Roxicodon H ermann Oral 00 e) Solution Vancomycin 2016-02 No Notes: Memor ia -19 TIME l 00:08: CRITICAL MEDICATION (Same As: Vancocin) Hydralazine 2016-02 No Notes: Jacobo carolann 18 (Same as: l 16:05: Apresoline ) Push over 5 minutes Amlodipine 2016-02 No Notes: Memor ia 18 (Same as: l 16:03: Norvasc) Potassium 2016-02 No Notes: Memori a Chloride 18 (Same as: l 15:00: Potassium Chloride) potassium 2016-02 No Notes: Memori a phosphate-s 02-22 (Same as: l odium 15:00: Phos-NaK) Each 1.5 gm pkt has 250mg phosphorou s. Mix w/2.5oz water and stir. potassium 2016-02 No 1.45 gm, Jacobo carolann phosphate 02-22 Route: PO, l 15:00: Daily, Dosing Weight 72, kg, Start date: 12/23/16 9:00:00 [employer], Duration: 30 day, Stop date: 01/22/17 8:59:00 [employer] norepinephr 2016-02 No Route: IV, Memoria ine (ANES) 02-21 Drug form: l 20:31: INJ, ONCE, Stop date: 12/22/16 14:31:00 [employer] ceFAZolin 2016-02 No Route: IV, Me moria (ANES) 02-21 Drug form: l 20:11: INJ, ONCE, Stop date: 12/22/16 14:11:00 [employer] cefepime 2016-02 No Route: IV, Mem oria (ANES) 02-21 Drug form: l 19:56: INJ, ONCE, Stop date: 12/22/16 13:56:00 [employer] ePHEDrine 2016-02 No Route: IV, Me moria (ANES) 02-21 Drug form: l 19:26: INJ, ONCE, Stop date: 12/22/16 13:26:00 [employer] propofol 2016-02 No Route: IV, Mem oria (ANES) -17 Drug form: l 19:16: INJ, ONCE, [place] 00 Stop date: 12/22/16 13:16:00 [employer] rocuronium 2016-02 No Route: IV, M emoria (ANES) 1-17 Drug form: l 19:16: INJ, ONCE, Wilfredo 00 Stop date: 12/22/16 13:16:00 [employer] Lactated 2016-02 No Route: IV, Mem oria Ringers -17 Total l Injection 18:20: Volume: Octavia nn IV (ANES) 00 1,000, 1000 mL Start date: 12/22/16 12:20:00 [employer], Stop date: 12/22/16 13:20:00 [employer] Normodyne 2016-02 No Notes: Memori a 1-17 With food. l 18:00: (Same [place] 00 as:Trandat e, Normodyne) Potassium 2016-02 No Notes: Memori a Chloride 1-17 (Same as: l 16:30: Potassium [place] 00 Chloride) Potassium 2016-02 No Notes: Memori a Chloride 1-17 (Same as: l 16:25: Potassium [place] 00 Chloride) Vancomycin 2016-02 No 2001 mg: Me moria 1-17 infuse l 15:00: over 2.5 [place] 00 hours MEDICATION WASTE Product Size: 1000 mg Product Wasted: ___ mg Oxycodone 2016-02 No Notes: Memori a Hydrochlori 1-17 (Same as: l de 1 MG/ML 11:05: 'Roxicodon H ermann Oral 00 e) Solution Oxycodone 2016-02 No Notes: Memori a Hydrochlori 1-17 (Same as: l de 1 MG/ML 03:00: 'Roxicodon H ermann Oral 00 e) Solution Oxycodone 2016-02 No 2.5 mL, Memor ia Hydrochlori -16 Route: PO, l de 1 MG/ML 19:54: Drug form: H ermann Oral 00 LIQ, ONCE, Solution Dosing Weight 72, kg, Start date: 12/21/16 13:54:00 [employer], Stop date: 12/21/16 13:54:00 [employer] Oxycodone 2016-02 No Notes: Memori a Hydrochlori 1-16 (Same as: l de 1 MG/ML 18:58: 'Roxicodon H ermann Oral 00 e) Solution Ibuprofen 2016-02 No Notes: Memori a 400 MG Oral 1-16 (Same as: l Tablet 16:37: Motrin) "Do Not Crush" Take with food. Vancomycin 2016-02 No 2001 mg: Me moria 1-16 infuse l 00:00: over 2.5 [place] 00 hours propofol 2016-02 No Route: IV, Mem oria (ANES) 1-15 Drug form: l 22:25: INJ, ONCE, Stop date: 12/20/16 16:25:00 [employer] ondansetron 2016-02 No Route: IV, Memoria (ANES) 1-15 Drug form: l 22:08: INJ, ONCE, Stop date: 12/20/16 16:08:00 [employer] Vancomycin 2016-02 No 1.25 gm, Mem oria -15 Route: IV, l 22:00: Drug form: INJ, ABXQ8H, Dosing Weight 72, kg, Start date: 12/20/16 16:00:00 [employer], Duration: 10 day, Stop date: 12/30/16 15:59:00 [employer], ABX Indication : Fever of Unknown Source 0-60 days of age Ancef + 2016-02 No Notes: Memoria sterile -15 (Same As: l water 10 mL 22:00: Ancef, Kefzol) MEDICATION WASTE Product Size: 1000 mg Product Wasted: ___ mg calcium 2016-02 No Route: IV, Jacobo carolann chloride 15 Drug form: l (ANES) 21:23: INJ, ONCE, Stop date: 12/20/16 15:23:00 [employer] ePHEDrine 2016-02 No Route: IV, Me moria (ANES) 1-15 Drug form: l 21:13: INJ, ONCE, Stop date: 12/20/16 15:13:00 [employer] hydromorpho 2016-02 No Route: IV, Memoria ne (ANES) 15 Drug form: l 21:03: INJ, ONCE, Stop date: 12/20/16 15:03:00 [employer] hydromorpho 2016-02 No Route: IV, Memoria ne (ANES) 02-19 Drug form: l 20:48: INJ, ONCE, [place] Stop date: 12/20/16 14:48:00 [employer] propofol 2016-02 No Route: IV, Mem oria (ANES) 02-19 Drug form: l 19:18: INJ, ONCE, [place] Stop date: 12/20/16 13:18:00 [employer] midazolam 2016-02 No Route: IV, Me moria (ANES) 15 Drug form: l 19:18: SOLN, Wilfredo ONCE, Stop date: 12/20/16 13:18:00 [employer] fentaNYL 2016-02 No Route: IV, Mem oria (ANES) 02-19 Drug form: l 19:13: INJ, ONCE, [place] 00 Stop date: 12/20/16 13:13:00 [employer] rocuronium 2016-02 No Route: IV, M emoria (ANES) 02-19 Drug form: l 18:23: INJ, ONCE, Wilfredo 00 Stop date: 12/20/16 12:23:00 [employer] Isolyte S 2016-02 No Route: IV, Me moria PH 7.4 02-19 Total l (ANES) 1000 17:46: Volume: Her cuello mL 00 1,000, Start date: 12/20/16 11:46:00 [employer], Stop date: 12/20/16 12:46:00 [employer] Sodium 2016-02 No Route: IV, Memor ia Chloride 02-19 Drug form: l 0.9% IV 16:12: INJ, Start Herm deedee (ANES) 235 00 date: mL + 12/20/16 vancomycin 10:12:00 (ANES) 1500 [employer], Stop mg date: 12/20/16 11:12:00 [employer] cefepime 2016-02 No Notes: Memoria -15 (Same As: l 15:46: Maxipime) Wilfredo 00 MEDICATION WASTE Product Size: 1000 mg Product Wasted: ___ mg Vancomycin 2016-02 No 2000 mg: Me moria 1-15 infuse l 15:39: over 2.5 Wilfred[place] 00 hours K-Dur 10 2016-02 No Notes: Memoria 1-15 (Same as: l 00:14: K-Dur 10) "Do Not Crush" With food and full glass of water Labetalol 2016-02 No Notes: Memori a -15 With food. l 00:00: (Same as:Trandat e, Normodyne) Potassium 2016-02 No 30 mEq, Memor ia Chloride -14 Route: PO, l 23:44: Drug form: [place] 00 ERTAB, PRN, Dosing Weight 72, kg, PRN Abnormal Lab Result, Electrolyt e replacemen t, Start date: 12/19/16 17:44:00 [employer], Duration: 30 day, Stop date: 01/18/17 17:43:00 [employer] Saline 2016-02 No Notes: Memoria Flush 0.9% -14 (Same as: l 22:00: BD [place] 00 Posiflush) propofol 10 2016-02 No 500 mg, 50 Memoria mg/mL 1-14 mL, Rate: l (Titrate.) 21:29: Titrate, Her cuello IV 500 mg 00 Start Dose: 5 microgram/ kg/min, Titration: 5 microgram/ kg/min every 15 min, Goal(s): RASS -1, Max Dose: 50 microgram/ kg/min, Route: IV, Dosing Weight 72 kg, Total Volume: 50, Start date: 12/19/16 15:29:00 [employer], Duration: 3... iodixanol 2016-02 No 60 mL, Memori a 1-14 Route: l 19:11: IVP, Drug Form: SOLN, Dosing Weight 72, kg, ONCALL, STAT, Start date: 12/19/16 13:11:00 [employer], Duration: 1 doses or times, Dose = 2.2ml/kg, Max dose = 100ml -- "To be infused by Radiology Staff ONLY" Lidocaine 2016-02 No Notes: Memori a Hydrochlori -14 (Same as: l de 10 MG/ML 17:00: Xylocaine) Wilfredo Solution Saline 2016-02 No Notes: Memoria Flush 0.9% 1-14 (Same as: l 16:13: BD [place] 00 Posiflush) iodixanol 2016-02 No 100 mL, Memor ia 1-14 Route: l 09:10: IVP, Drug Wilfredo 00 Form: SOLN, Dosing Weight 72, kg, ONCALL, STAT, Start date: 12/19/16 3:10:00 [employer], Duration: 1 doses or times, Dose = 2.2ml/kg, Max dose = 100ml -- "To be infused by Radiology Staff ONLY" Clonidine 2016-02 No 0.1 mg, Memor ia Hydrochlori 1-14 Route: PO, l de 0.1 MG 03:00: Drug form: Feroz rmann Oral Tablet 00 TAB, Q12H, Dosing Weight 72, kg, Start date: 12/18/16 21:00:00 [employer], Duration: 30 day, Stop date: 01/17/17 20:59:00 [employer] Propranolol 2016-02 No Notes: Jacobo carolann 1-13 Give with l 18:00: food. Wilfredo 00 (Same as: Inderal) propranolol 2016-02 No Notes: Jacobo carolann 1-13 Give with l 18:00: food. [place] 00 (Same as: Inderal) Clonidine 2016-02 No Notes: Memori a Hydrochlori 1-13 (Same As: l de 0.1 MG 18:00: Catapres) Her cuello Oral Tablet 00 Golytely 2016-02 No Notes: Memoria 1-13 (Same as: l 16:46: Golytely (Flavored) The final solution contains PEG-3350 17.6 mmol/L, sodium 125 mmol/L, sulfate 40 mmol/L, chloride 35 mmol/L, bicarbonat e 20 mmol/L, and potassium 10 mmol/L Golytely 2016-02 No 4,000 ml, Jacobo carolann 1-13 Route: PO, l 16:43: Drug Form: [place] PDR/REC, Dosing Weight 72, kg, ONCE, Start date: 12/18/16 10:43:00 [employer], Stop date: 12/18/16 10:43:00 [employer] senna 8.6 2016-02 No Notes: Memori a mg oral 1-13 (Same as: l tablet 15:00: Senokot) Propranolol 2016-02 No Notes: Jacobo carolann 1-13 Give with l 14:00: food. [place] 00 (Same as: Inderal) propofol 10 2016-02 No Notes: If M emoria mg/mL 1-13 Diprivan - l (Titrate.) 12:25: change Octavia nn IV 1,000 mg 00 bottle & tubing every 12 hr Per state nursing law propofol can only be given by a nurse if patient is intubated or being intubated (unless the nurse is a BE[employer] STRINGER). Same as: Diprivan Propranolol 2016-02 No Notes: Jacobo carolann 1-13 Give with l 08:33: food. Wilfredo 00 (Same as: Inderal) Labetalol 2016-02 No 20 mg, 4 Jacobo carolann 1-13 mL, Route: l 08:31: IVP, Drug Wilfredo 00 form: INJ, Q15Min, Dosing Weight 72, kg, PRN Other -See Comment, Start date: 12/18/16 2:31:00 [employer], Duration: 30 day, Stop date: 01/17/17 2:30:00 [employer] molasses 2016-02 No Notes: Memoria -13 (Same l 06:40: as:Molasse Wilfredo 00 s) Ancef 2016-02 No Notes: Memoria 02-16 Same as: l 23:47: Ancef Wilfredo Sodium 2016-02 No 250 mL, Memoria Chloride 02-16 Rate: On l 0.9% 21:41: call for Wilfredo (titrate) 00 use with 250 mL blood product administra tion, Dosing Weight 72, kg, Route: IV, Total Volume: 250, Start Date: 12/17/16 15:41:00 [employer], Duration: 30 day, Stop date: 01/16/17 15:40:00 [employer], Replace Every: 24 hr sodium 2016-02 No 120 mEq, Memoria chloride 12 30 mL, 60 l 23.4% 04:08: ml/hr, [place] (BOLUS) 00 Infuse Over: 30 minutes, Route: IV, 30, Drug form: INJ, ONCE, Dosing Weight 72 kg, Start date: 12/16/16 22:08:00 [employer], Stop date: 12/16/16 22:08:00 [employer] gabapentin 2016-02 No Notes: Memor ia 300 MG Oral 02-15 (Same as: l Capsule 22:00: Neurontin) Herm deedee Valium 2016-02 No Notes: Memoria - (Same as: l 22:00: Valium) Wilfredo Sodium 2016-02 No 250 mL, Memoria Chloride 1-11 Rate: On l 0.9% 15:20: call for Wilfredo (titrate) 00 use with 250 mL blood product administra tion, Dosing Weight 72, kg, Route: IV, Total Volume: 250, Start Date: 12/16/16 9:20:00 [employer], Duration: 30 day, Stop date: 01/15/17 9:19:00 [employer], Replace Every: 24 hr Sodium 2016- No 250 mL, Memoria Chloride 1-11 Rate: On l 0.9% 15:06: call for Wilfredo (titrate) 00 use with 250 mL blood product administra tion, Dosing Weight 72, kg, Route: IV, Total Volume: 250, Start Date: 12/16/16 9:06:00 [employer], Duration: 30 day, Stop date: 01/15/17 9:05:00 [employer], Replace Every: 24 hr Miralax 2016-02 No Notes: Memoria 1-11 Dissolve l 15:00: in 8 oz of Wilfredo 00 water or juice. (Same as: Miralax) Bisacodyl 2016-02 No Notes: Memori a 1-11 (Same As: l 14:56: Dulcolax, [place] 00 Bisco-Lax) Midazolam 2016-02 No 100 mg, Memor ia 1-11 100 mL, l 14:53: Rate: Wilfredo 00 Titrate, Start Dose: 1 mg/hr, Titration: Rebolus 1 mg IV and/or Titrate infusion by 1 mg/hour every 30 minutes, Goal(s): RASS 0 to-1, Max Dose: 10 mg/hr, Route: IV, Dosing Weight 72 kg, Total Volume: 100, Start date: 12/16/16 8:5... sodium 2016- No 30 mL, Memoria chloride 1-11 Infuse l 23.4% 12:14: Over: 30 [place] (BOLUS) 00 minutes, Route: IV, ONCE, Dosing Weight 72 kg, Start date: 12/16/16 6:14:00 [employer], Stop date: 12/16/16 6:14:00 [employer] phenylephri 2016-02 No Route: IV, Memoria ne (ANES) 1-10 Drug form: l 20:30: INJ, ONCE, [place] 00 Stop date: 12/15/16 14:30:00 [employer] ceFAZolin 2016-02 No Route: IV, Me moria (ANES) 1-10 Drug form: l 20:30: INJ, ONCE, Stop date: 12/15/16 14:30:00 [employer] fentaNYL 2016-02 No Route: IV, Mem oria (ANES) 1-10 Drug form: l 20:30: INJ, ONCE, Stop date: 12/15/16 14:30:00 [employer] LR 1000 mL 2016-02 No Route: IV, M emoria INJ (ANES) 1-10 Total l 19:45: Volume: [place] 00 1,000, Start date: 12/15/16 13:45:00 [employer], Stop date: 12/15/16 14:45:00 [employer] Omnipaque 2016-02 No 150 mL, Memor ia 300 1-10 Route: l 15:22: INTRAARTER Wilfredo 00 IAL, Dosing Weight 72, kg, ONCE, Start date: 12/15/16 9:22:00 [employer], Stop date: 12/15/16 9:22:00 [employer] Lovenox 2016-02 No Notes: Memoria 1-10 (Same as: l 15:00: Lovenox) Spiriva 2016-02 No 18 Memoria 1-10 microgram, l 14:00: Route: Wilfredo 00 INHALATION , RDaily, Dosing Weight 72, kg, Start date: 12/15/16 8:00:00 [employer], Duration: 30 day, Stop date: 01/13/17 8:00:00 [employer] [place] 2016-02 No Notes: Memoria Thyroid 1-10 (Same As: l 12:30: [place] Thyroid, S-P-T) Calcium 2016-02 No Notes: Memoria Gluconate 1-10 WASTE: F/P l 06:04: - Sink; E - Municipal Trash Bin Potassium 2016-02 No Notes: Memori a Chloride 1-10 (Same as: l 06:01: KCL) Infuse no faster than 10 mEq/hr if given peripheral ly. AMIODarone 2016-02 No 2 mg/ml. Me moria INJ 900 mg 1-10 Use Glass l + D5W 500 04:59: Bottle or Her cuello ml INJ 482 00 Non PVC mL Bag "Use 0.22 micron in-line filter" MEDICATION WASTE Product Size: 900 mg Product Wasted: ___ mg Amiodarone 2016-02 No 2 mg/ml. Me moria 02-14 "Recommend l 04:58: ation: Use [place] 00 an in-line filter during administra tion for continuous infusions to reduce the incidence of phlebitis" (Same as Codarone) MEDICATION WASTE Product Size: 150 mg Product Wasted: ___ mg iodixanol 2016-02 No 50 mL, Memori a 02-14 Route: l 04:42: IVP, Drug Wilfredo 00 Form: SOLN, Dosing Weight 72, kg, ONCALL, STAT, Start date: 12/14/16 22:42:00 [employer], Duration: 1 doses or times, Dose = 2.2ml/kg, Max dose = 100ml -- "To be infused by Radiology Staff ONLY" Famotidine 2016-02 No Notes: Memor ia 02-14 (Same as: l 03:00: Pepcid) Wilfredo 00 Can be dilute in 5-10cc NS IVP: Slow IV push over at least 2 minutes. Zemuron 2016-02 No Notes: Memoria 02-13 (Same as: l 23:15: Zemeron) Wilfredo 00 sodium 2016-02 No 120 mEq, Memoria chloride 02-13 30 mL, l 23.4% 22:38: Route: IV, Kofi n (BOLUS) 00 Drug form: INJ, ONCE, Dosing Weight 72 kg, Start date: 12/14/16 16:38:00 [employer], Duration: 1 doses or times, Stop date: 12/14/16 16:38:00 [employer] Rocuronium 2016-02 No Notes: Memor ia 02-13 (Same as: l 22:26: Zemeron) Wilfredo 00 sodium 2016-02 No 120 mEq, Memoria chloride 02-13 30 mL, l 23.4% 22:25: Route: IV, Kofi n (BOLUS) 00 Drug form: INJ, ONCE, Dosing Weight 72 kg, Start date: 12/14/16 16:25:00 [employer], Duration: 1 doses or times, Stop date: 12/14/16 16:25:00 [employer] Singulair 2016-02 No Notes: Memori a 02-13 (Same l 22:00: as:Singula ir) Pravastatin 2016-02 No Notes: Jacobo carolann 02-13 (Same as: l 22:00: Pravachol) ceFAZolin 2016-02 No Notes: Memori a 02-13 Same as: l 20:00: Ancef [place] 00 Insulin 2016-02 No 60 Memoria regular 02-13 units) l 15:15: WASTE: F/P [place] - Black; E - Municipal Trash Bin Stable for 28 days at room temperatur e Expires in days from ____Date Dextrose 2016-02 No 12.5 gm, Memor ia 50% Syringe 02-13 25 mL, l 15:15: Route: [place] 00 IVP, Drug Form: INJ, Dosing Weight 72, kg, PRN, PRN Abnormal Lab Result, Start date: 12/14/16 9:15:00 [employer], Duration: 30 day, Stop date: 01/13/17 9:14:00 [employer], For FSBG 40 mg/dL - 60 mg/dL Famotidine 2016-02 No Notes: Memor ia 02-13 (Same as: l 15:00: Pepcid) Can be dilute in 5-10cc NS IVP: Slow IV push over at least 2 minutes. Potassium 2016-02 No Notes: Memori a Chloride 02-13 (Same as: l 05:52: KCL) Infuse no faster than 10 mEq/hr if given peripheral ly. Magnesium 2016-02 No Notes: Memori a Sulfate 02-13 WASTE: F/P l 05:51: - Sink; E - Municipal Trash Bin sodium 2016-02 No 250 mL, Memoria chloride 02-13 Rate: On l 0.9% INJ 04:26: call for Octavia nn 250 mL 00 use with blood product administra tion, Dosing Weight 72, kg, Route: IV, Total Volume: 250, Start Date: 12/13/16 22:26:00 [employer], Duration: 30 day, Stop date: 01/12/17 22:25:00 [employer], Replace Every: 24 hr Isolyte S 2016-02 No Notes: Memori a PH-7.4 02-13 (Same as: l (Bolus) IV 03:32: Isolyte S He rmann 00 PH7.4) remove 2016-02 No Notes: Memoria patch 02-13 Remove l 03:00: patch 12 [place] 00 hours after applicatio n each day. Aspirin 325 2016-02 No Notes: Jacobo carolann MG Oral 02-12 Take with l Tablet 23:14: food. Wilfredo 00 docusate 2016-02 No Notes: [facility]oria sodium 150 -08 (Same as: l mg/15 mL 19:00: Colace) Kofi n oral liquid 00 Lidocaine 2016-02 No Notes: Memori a Hydrochlori 02-12 Apply only l de 0.05 15:00: once for Kofi n MG/MG 00 up to 12 Transdermal hours in a Patch 24-hour [Lidoderm] period (12 hours on and 12 hours off). (Same as: Lidoderm) "Remove old patch before applicatio n of new patch" chlorhexidi 2016-02 No Notes: Jacobo carolann ne 02-12 (Same As: l gluconate 15:00: Peridex) Herm deedee 1.2 MG/ML 00 Mouthwash Dilantin 2016-02 No Notes: Memoria -08 (Same as: l 14:00: Dilantin) [place] 00 Do not infuse greater than 50 mg/min. MEDICATION WASTE Product Size: 100 mg Product Wasted: ___ mg Ancef + 2016-02 No Notes: Memoria sodium -08 Keep l chloride 12:00: Refrigerat Her cuello 0.9% INJ 00 ed 100 mL Tylenol 2016-02 No Notes: Max Jacobo carolann -08 acetaminop l 06:00: hen 4000 Wilfredo 00 mg/day (4 gm/day). (Same as: Tylenol Extra Strength) Tramadol 2016-02 No Notes: Not Mem oria -08 to exceed l 06:00: 400mg/day. [place] 00 (Same As: Ultram) Dilantin 2016-02 No Notes: Memoria 1-08 (Same as: l 06:00: Dilantin) [place] 00 ocular 2016-02 No Notes: Memoria lubricant -08 (Same as: l 06:00: Lacri-Lube [place] 00 , Duratears Naturale, Artificial Tears, and Tears Again ) Lyrica 2016-02 No Notes: Memoria -08 (Same as: l 06:00: Lyrica) [place] 00 chlorhexidi 2016-02 No Notes: Jacobo carolann ne 08 (Same As: l gluconate 04:42: Peridex) Herm deedee 1.2 MG/ML 00 Mouthwash Ancef 2016-02 No Notes: Memoria -08 Same as: l 04:10: Ancef Wilfredo 00 senna 8.6 2016-02 No Notes: Memori a mg oral 08 (Same as: l tablet 03:00: Senokot) Wilfredo 00 Lyrica 2016-02 No Notes: Memoria -08 Same as l 03:00: Lyrica [place] Docusate 2016-02 No Notes: [facility]oria Sodium 100 02-12 (Same as: l MG Oral 03:00: Colace) [place] Capsule (Do Not Crush) Celebrex 2016-02 No Notes: Memoria -08 NSAID. l 03:00: Please Wilfredo 00 check indication . Not for seizure. (Same As: CeleBREX) Keppra 2016-02 No Notes: Memoria -08 Same as l 03:00: Keppra [place] 00 Mix with 100 mL NS, LR or D5W MEDICATION WASTE Product Size: 500 mg Product Wasted: ___ mg Anc 2016-02 No 2 gm, Memoria 02-12 Route: l 02:00: IVPB, Wilfredo 00 ABXQ8H, Dosing Weight 72.727, kg, Start date: 12/12/16 20:00:00 [employer], Duration: 3 day, Stop date: 12/15/16 12:00:00 [employer], ABX Indication : Open Wound Prophylaxi s 10 ML 2016-02 No 0.3 mg, Memoria Epinephrine 02-12 Route: IV, l 0.1 MG/ML 00:46: ONCE, Wilfredo Prefilled 00 Dosing Syringe Weight 72.727, kg, Start date: 12/12/16 18:46:00 [employer], Stop date: 12/12/16 18:46:00 [employer] Norepinephr 2016-02 No Notes: Not Memoria ine -08 for direct l 00:46: administra Wilfredo 00 tion - DILUTE. Protect from light. (Same as:Levophe d). Administer by either central venous catheter or peripheral ly-inserte d central catheter (PICC) line. Norepinephr 2016-02 No = 65 mmHg, Memoria ine 02-12 Max Dose: l 00:43: 1 Wilfredo 00 microgram/ kg/min, Route: IV, Dosing Weight 72.727 kg, Total Volume: 250, Start date: 12/12/16 18:... 10 ML 2016-02 No 0.3 mg, Memoria Epinephrine 02-12 Route: IV, l 0.1 MG/ML 00:42: ONCE, Wilfredo Prefilled 00 Dosing Syringe Weight 72.727, kg, Start date: 12/12/16 18:42:00 [employer], Stop date: 12/12/16 18:42:00 [employer] Keppra 2016-02 No Notes: Memoria 02-12 Same as l 00:30: Keppra Wilfredo 00 Mix with 100 mL NS, LR or D5W MEDICATION WASTE Product Size: 500 mg Product Wasted: ___ mg Plasma-Lyte 2016-02 No Notes: Jacobo carolann A PH-7.4 02-12 WASTE: F/P l 1000 ml INJ 00:11: - Sink; E H ermann 1,[address] [place] [address] Trash Bin Oxycodone 2016-02 No Notes: Memori a Hydrochlori 02-12 (Same as: l de 5 MG 00:09: Roxicodone Herm deedee Oral Tablet ) iodixanol 2016-02 No 120 mL, Memor ia 02-11 Route: l 22:36: IVP, Drug [place] Form: SOLN, Dosing Weight 72.727, kg, ONCALL, STAT, Start date: 12/12/16 16:36:00 [employer], Duration: 1 doses or times, Dose = 2.2ml/kg, Max dose = 150ml -- "To be infused by Radiology Staff ONLY" fosphenytoi 2016-02 No 1,200 mg, M ti n 02-11 Route: IV, l 22:23: ONCE, Wilfredo 00 Dosing Weight 72.727, kg, Start date: 12/12/16 16:23:00 [employer], Stop date: 12/12/16 16:23:00 [employer] Gentamicin 2016-02 No Notes: Memor ia 1-07 TIME l 22:22: CRITICAL [place] 00 MEDICATION (Same as Garamycin) Cefazolin 2016-02 No Notes: Memori a 1-07 (Same As: l 22:22: Ancef, Wilfredo 00 Kefzol) MEDICATION WASTE Product Size: 1000 mg Product Wasted: ___ mg Fentanyl 2016-02 No 1,000 Memoria 1-07 microgram, l 22:21: 20 mL, Wilfredo 00 Rate: Titrate, Start Dose: 50 microgram/ hr, Titration: 25 microgram/ hour every 15 minutes, Goal(s): RASS -2, Max Dose: 300 microgram/ hr, Route: IV, Dosing Weight 72.727 kg, Total Volume: 20, Start date: 12/12/16 16:21:00 [employer], D... Midazolam 2016-02 No Notes: Memori a -07 (Same as: l 22:21: Versed) [place] 00 Fentanyl 2016-02 No Notes: Memoria -07 (Same as: l 22:20: Sublimaze) Wilfredo Preservat carol free. Saline 2016-02 No Notes: Memoria Flush 0.9% -07 (Same as: l 21:38: BD [place] 00 Posiflush) sugammadex 2016-02 No Notes: Memor ia -07 (Same as: l 04:20: Bridion) [place] 00 Immunizations Ordered Immunization Filled Immunization Date Status Commen ts Source Name Name Pneumococcal 2018-05-[address] [facility] - Conjugate [facility]ar) [facility] Vital Signs Vital Name Observation Time Observation Value Comments Source Systolic (mm Hg) 2018-06-19 16:12:00 Jacobo rial [place] Diastolic (mm Hg) 2018-06-19 16:12:00 Mem orial [place] Temperature Oral (F) 2018-06-19 16:12:00 97.8 F [facility] Heart Rate 2018-06-19 16:12:00 [facility] [place] Respitory Rate 2018-06-19 16:12:00 Memori al [place] Temperature Oral (F) 2018-06-19 13:07:00 97.9 F [facility] Respitory Rate 2018-06-19 13:07:00 [facility] al [place] Heart Rate 2018-06-19 13:07:00 [facility] Systolic (mm Hg) 2018-06-19 13:07:00 Jacobo rial [place]fred[place] Diastolic (mm Hg) 2018-06-19 13:07:00 Mem orial [place] Respitory Rate 2018-06-19 12:18:00 Memori al [place] Temperature Oral (F) 2018-06-19 09:00:00 98.0 F [facility] Heart Rate 2018-06-19 09:00:00 [facility] [place] Systolic (mm Hg) 2018-06-19 09:00:00 Jacobo rial [place]fred[place] Diastolic (mm Hg) 2018-06-19 09:00:00 Mem orial [place] BMI Calculated 2018-06-16 21:13:00 [facility] al [place] Weight 2018-06-16 21:13:00 [facility] Height 2018-06-16 21:13:00 152.4 cm [facility] [place] Heart Rate 2017-09-21 16:59:00 [facility] [place] Respitory Rate 2017-09-21 16:59:00 [facility] al [place] Temperature Oral (F) 2017-09-21 16:59:00 97.8 F [facility] Systolic (mm Hg) 2017-09-21 16:59:00 Jacobo rial [place]fred[place] Diastolic (mm Hg) 2017-09-21 16:59:00 Mem o[facility] [place] Respitory Rate 2017-09-21 12:10:00 [facility] al [place] Systolic (mm Hg) 2017-09-21 12:10:00 Jacobo rial [place] Diastolic (mm Hg) 2017-09-21 12:10:00 Mem orial [place] Temperature Oral (F) 2017-09-21 12:10:00 98.4 F [facility] [place] Heart Rate 2017-09-21 12:10:00 [facility] [place] Temperature Oral (F) 2017-09-21 08:00:00 98.1 F [facility] Systolic (mm Hg) 2017-09-21 08:00:00 Jacobo rial [place] Diastolic (mm Hg) 2017-09-21 08:00:00 Mem orial [place] Heart Rate 2017-09-21 08:00:00 [facility] Respitory Rate 2017-09-21 08:00:00 [facility] al [place] BMI Calculated 2017-09-19 06:14:00 [facility] al [place] Weight 2017-09-19 06:14:00 [facility] [place] Height 2017-09-19 06:14:00 157.48 cm [facility] [place] Weight 2017-09-18 23:49:00 [facility] [place] BMI Calculated 2017-09-18 23:49:00 Memori al [place]fred[place] Height 2017-09-18 23:49:00 157.48 cm [facility] Weight 2017-03-29 21:55:00 [facility] [place] BMI Calculated 2017-03-29 21:55:00 Memori al [place] Height 2017-03-29 21:55:00 157.48 cm [facility] [place] Temperature Oral (F) 2017-03-29 21:55:00 98.2 F [facility] [place] Heart Rate 2017-03-29 21:55:00 [facility] [place] Systolic (mm Hg) 2017-03-29 21:55:00 Jacobo rial Wilfredo Diastolic (mm Hg) 2017-03-29 21:55:00 Mem orial [place] BMI Calculated 2017-02-15 18:03:00 [facility]ori al [place] Height 2017-02-15 18:03:00 157.48 cm [facility] [place] Weight 2017-02-15 18:03:00 [facility] [place] Temperature Oral (F) 2017-02-15 18:03:00 98.0 F [facility] Heart Rate 2017-02-15 18:03:00 [facility] [place] Systolic (mm Hg) 2017-02-15 18:03:00 Jacobo rial [place]fred[place] Diastolic (mm Hg) 2017-02-15 18:03:00 Mem o[facility] [place] Respitory Rate 2017-01-22 18:00:00 [facility] al [place] Heart Rate 2017-01-22 18:00:00 [facility] [place] Temperature Oral (F) 2017-01-22 18:00:00 97.7 F [facility] Systolic (mm Hg) 2017-01-22 18:00:00 Jacobo rial [place]fred[place] Diastolic (mm Hg) 2017-01-22 18:00:00 Mem orial [place] Heart Rate 2017-01-22 14:07:00 [facility] [place] Respitory Rate 2017-01-22 14:07:00 [facility]ori al [place] Systolic (mm Hg) 2017-01-22 14:07:00 Jacobo rial Wilfred[place] Diastolic (mm Hg) 2017-01-22 14:07:00 Mem orial [place] Temperature Oral (F) 2017-01-22 14:07:00 98.8 F [facility] [place] Temperature Oral (F) 2017-01-22 10:09:00 97.9 F [facility] [place] Systolic (mm Hg) 2017-01-22 10:09:00 Jacobo carolannl [place] Diastolic (mm Hg) 2017-01-22 10:09:00 Mem orial [place] Heart Rate 2017-01-22 10:09:00 [facility] [place] Respitory Rate 2017-01-22 10:09:00 Karinori al Wilfredo Height 2017-01-06 10:42:00 157 cm [facility] Height 2017-01-05 16:30:00 157 cm [facility] [place] Height 2017-01-05 10:09:00 157 cm [facility] Weight 2016-12-13 03:07:00 [facility] [place] BMI Calculated 2016-12-13 03:07:00 Memori al [place] BMI Calculated 2016-12-12 21:39:00 [facility] al [place] Weight 2016-12-12 21:39:00 [facility] [place] Procedures Procedure Date / Time Performing Clinician Source Performed [U] XRAY FEMUR 2 VWS LEFT 2017-11-29 00:00:00 [facility] [place] [id number] Physicians [U] XRAY FEMUR 2 VWS LEFT 2017-11-20 00:00:00 [facility] [place] [address] Physicians [U] XRAY FEMUR 2 VWS LEFT 2017-10-19 00:00:00 [facility] [place] [address] Physicians [U] XRAY FEMUR 2 VWS LEFT 2017-09-27 00:00:00 [facility] [place] [address] Physicians [U] XRAY FEMUR 2 VWS LEFT 2017-08-23 00:00:00 [facility] [place] [address] Physicians [U] XRAY ELBOW MIN 3 VWS 2017-08-23 00:00:00 [facility] [place] LEFT [address]1218 Physicians [U] XRAY ANKLE MIN 3 VWS 2017-08-23 00:00:00 [facility] [place] RIGHT 23056 Physicians [U] XRAY KNEE 1 OR 2 VWS 2017-08-23 00:00:00 [facility] [place] LEFT 84553 Physicians [U] XRAY FEMUR 2 VWS LEFT 2017-06-29 00:00:00 [facility] [place] [address] Physicians [U] XRAY FEMUR 2 VWS LEFT 2017-06-26 00:00:00 [facility] [place] [address] Physicians [U] XRAY FEMUR 2 VWS LEFT 2017-05-11 00:00:00 [facility] [place] [address] Physicians [U] XRAY ANKLE MIN 3 S 2017-05-11 00:00:00 [facility] [place] RIGHT [address]2918 Physicians [U] XRAY FOOT MIN 3 S 2017-05-11 00:00:00 [facility] [place] RIGHT [address]6439 Physicians [U] XRAY FOREARM 2 S 2017-05-11 00:00:00 [facility] [place] LEFT 85257 Physicians [U] XRAY ELBOW MIN 3 S 2017-05-11 00:00:00 [facility] [place] LEFT 33984 Physicians [U] XRAY FEMUR 2 S LEFT 2017-03-30 00:00:00 [facility] [place] [address] Physicians [U] XRAY ANKLE MIN 3 S 2017-03-30 00:00:00 [facility] [place] RIGHT 12076 Physicians [U] XRAY FOOT MIN 3 S 2017-03-30 00:00:00 [facility] [place] RIGHT 53115 Physicians [U] XRAY FOREARM 2 S 2017-03-30 00:00:00 [facility] [place] LEFT 66583 Physicians [U] XRAY ELBOW MIN 3 S 2017-03-30 00:00:00 [facility] [place] LEFT 95712 Physicians [U] XRAY ANKLE MIN 3 S 2017-03-02 00:00:00 [facility] [place] RIGHT 87302 Physicians [U] XRAY FOREARM 2 S 2017-03-02 00:00:00 [facility] [place] LEFT 26918 Physicians [U] XRAY FEMUR 2 VWS LEFT 2017-03-02 00:00:00 [facility] [place] [address] Physicians [U] XRAY ELBOW MIN 3 S 2017-03-02 00:00:00 [facility] [place] LEFT [address]1948 Physicians [U] XRAY FOOT MIN 3 S 2017-03-02 00:00:00 [facility] [place] RIGHT [address]36 Physicians Selective catheter 2016-12-15 15:48:58 [facility] [place] placement, vertebral artery, unilateral, with angiography of the ipsilateral vertebral circulation and all associated radiological supervision and interpretation, includes angiography of the cervicocerebral arch, when performed Selective catheter 2016-12-15 15:48:58 [facility] placement, subclavian or innominate artery, unilateral, with angiography of the ipsilateral vertebral circulation and all associated radiological supervision and interpretation, includes angiography of the cervicocerebral arch, when per External fixation- R. 2016-12-06 00:00:00 Mau Pineda Ankle ORIF- R. Talus 2016-12-06 00:00:00 [facility] Gastrostomy [facility] Wilfredo Stent placement [facility] Plan of Care Planned Activity Planned Date Details Comments Source Future Scheduled 2019-10-07 INFLUENZA VACCINE (#1) [facility]:00 [code = INFLUENZA Medical Ce nter VACCINE (#1)] Future Scheduled 2019-05-24 PNEUMOCOCCAL 65+ YRS [facility] - Test 00:00:00 (2 of 2 - PPSV23) Medical Ce nter [code = PNEUMOCOCCAL 65+ YRS (2 of 2 - PPSV23)] Future Scheduled 2019-02-[address] [facility] Test 00:00:00 WELLNESS (YEAR 2 or Medical Center FIRST YEAR if no IPPE) [code = MEDICARE ANNUAL WELLNESS (YEAR 2 or FIRST YEAR if no IPPE)] Future Scheduled [address] [facility] 00:[facility]:00 malignant neoplasm of [facility] breast (procedure) [code = 160098531] Future Scheduled [address] [facility] Test 00:00:00 [facility] colon (procedure) [code = 474157328] Encounters Start End Encounter Admission Attending Care Care Encounter Source Date/Time Date/Time Type Type Clinicians Facility Department ID 2020-06-[address] [facility] [id number] [place] 16:33:01 Health 2020-06-[address] [facility] [id number] [place] 04:24:06 [facility] 2018-06-16 [facility]patient [facility] [id number] MHB L 15:59:00 2018-06-16 2018-06-[address] [id number] 15:59:00 20:10:00 Peter 33 2017-12-03 2017-12-03 Appointmen [facility] Orthopedics [id number] Univers 14:15:00 14:15:00 t; [place], [place] [facility] 2017-11-26 2017-11-26 Appointmen [facility] [id number] Univers 13:30:00 13:30:00 t; [place] ARCEO PA ity of [place] [facility] [place] [facility] 2017-10-29 2017-10-29 Appointmen [facility] [id number] Univers 12:45:00 12:45:00 t; [place] [facility] 2017-10-01 2017-10-01 Appointjenny [facility] [id number] Univers 12:45:00 12:45:00 t; [place] [facility] [facility] 2017-09-18 2017-09-21 Outpatient [facility], [facility] [id number] 18:45:00 16:30:00 Jeffy 26 Madhu 2017-09-19 2017-09-19 Appointmen Seth [facility] [id number] Univers 08:00:00 08:00:00 t; Rusty Ann ity of [place], M.D. [place] M.D. Physici ans 2017-08-30 2017-08-30 Appointmen [facility] Orthopedics [id number] Univers 13:15:00 13:15:00 t; RICCO NEWSOME it y of [place], M.D. [place] M.D. Physici ans 2017-07-05 2017-07-05 Appointmen [facility] Orthopedics [id number] Univers 12:30:00 12:30:00 t; RICCO NEWSOME it y of [place], M.D. [place] M.D. Physici ans 2017-06-28 2017-06-28 Appointmen [facility] Orthopedics [id number] Univers 12:15:00 12:15:00 t; RICCO NEWSOME it y of [place], M.D. [place] M.D. Physici ans 2017-05-17 2017-05-17 Appointmen TRES [facility] [id number] Univers 12:00:00 12:00:00 t; RICCO NEWSOME it y of [place], M.D. [place] M.D. Physici ans 2017-04-05 2017-04-05 AppointTRES [facility] [id number] Univers 12:15:00 12:15:00 t; RICCO NEWSOME it y of [place], M.D. [place] M.D. Physici ans 2017-03-29 2017-03-29 Outpatient Rico, MHMISCHER MHMISCHER [id number] 14:00:00 23:59:59 Marvin Jeffy 2017-03-29 2017-03-29 Outpatient Rico, MHOIH MHOIH [id number] 12:51:00 23:59:00 Marvin Jeffy 2017-03-22 [facility]03-[id number] Univers 12:00:00 12:00:00 [place] BHAVIK [place] Physici [facility] 2017-03-13 2017-03-14 Outpatient MHMISCHER MHMISCHER [id number] 11:59:00 23:59:59 03 2017-03-08 2017-03-08 [facility] [id number] Univers 12:00:00 12:00:00 t; RICCO NEWSOME it y of [place], M.D. [place] M.D. Physici ans 2017-02-22 2017-02-23 Outpatient MHMISCHER MHMISCHER [id number] 13:12:00 23:59:59 2017-02-23 2017-02-[facility] [id number] Univers 07:30:00 07:30:00 t; RICCO NEWSOME it y of [place], M.D. [place] M.D. Physici ans 2017-02-22 2017-02-22 Outpatient Rico, MHMISCHER MHMISCHER [id number] 13:00:00 23:59:59 Marvin Jeffy 2017-02-16 2017-02-17 Outpatient MHMISCHER MHMISCHER [id number] 11:46:00 23:59:59 2017-02-16 2017-02-17 Outpatient MHMISCHER MHMISCHER [id number] 11:46:00 23:59:59 2017-02-15 2017-02-15 Outpatient VISIT, MHMISCHER MHMISCHER [id number] 11:45:00 23:59:59 TRAUMA 00 CLINIC 2017-02-15 2017-02-15 [facility] [id number] 11:01:00 23:59:00 Roscoe Seiji 00 2017-02-08 2017-02-08 AppointTRES Vidal [id number] Univers 09:00:00 09:00:00 t; RICCO NEWSOME, it y mode CHACKO M.D. [place] [facility] 2017-01-23 2017-01-24 Outpatient MHMISCHER MHMISCHER [id number] 11:59:00 23:59:59 00 2016-12-12 2017-01-22 Outpatient Mona, [facility] [id number] 15:39:00 13:00:00 Alek Gonzalez 00 Results Test Description Test Time Test Comments Results Result Comments Source CHEM PANEL 2018-06-19 2.8 [facility] 09:17:00 CHEM PANEL 2018-06-19 2.3 [facility] [facility] 09:17:00 CHEM PANEL 2018-06-19 62 [facility] [place] [facility] 09:17:00 CHEM PANEL 2018-06-19 8.8 [facility] [place] nn 09:17:00 CHEM PANEL 2018-06-19 26 [facility] [place] [facility] 09:17:00 CHEM PANEL 2018-06-19 112 [facility] [place] nn 09:17:00 CHEM PANEL 2018-06-19 144 [facility] [place] nn 09:17:00 CHEM PANEL 2018-06-19 4.5 [facility] [place] nn 09:17:00 CHEM PANEL 2018-06-19 0.94 [facility] [place] nn 09:17:00 CHEM PANEL 2018-06-19 22 [facility] [place] [facility] 09:17:00 CHEM PANEL 2018-06-19 102 [facility] [place] [facility] 09:17:00 CHEM PANEL 2018-06-19 10.5 [facility] [place] [facility] 09:17:00 HEMATOLOGY 2018-06-19 33.2 [facility] [place] [facility] 09:17:00 HEMATOLOGY 2018-06-19 14.8 [facility] [place] [facility] 09:17:00 HEMATOLOGY 2018-06-19 116 [facility] [place] [facility] 09:17:00 HEMATOLOGY 2018-06-19 8.6 [facility] [place] [facility] 09:17:00 HEMATOLOGY 2018-06-19 4.1 [facility] [place] [facility] 09:17:00 HEMATOLOGY 2018-06-19 12.0 [facility] [place] [facility] 09:17:00 HEMATOLOGY 2018-06-19 36.1 [facility] [place] [facility] 09:17:00 HEMATOLOGY 2018-06-19 96.7 [facility] [place] [facility] 09:17:00 HEMATOLOGY 2018-06-19 09:17:00 Test Item Value Reference Range Interpretation Comme nts MCH (test code = MCH) 32.1 pg 27.0-31.0 [facility] [id number] 09:17:003.73[facility] HermannHEMATOLOGY 2018-06-19 09:17:001.0[facility] BhwaodlRMFEIUJYKR8506-01-24 09:17:000.4[facility] NnuzihlUKZHXZCHUN3193-29-51 09:17:009.5[facility] GgillaiPQQCBGMSYX4346-49-18 09:17:0024.8[facility] EuonjruKKTWZZFBKW0292-93-35 09:17:000.2[facility] CKGXDHNOFI5250-16-50 09:17:000.3[facility] TseogfjPNSQTDRVHS9869-52-82 09:17:00 65.2[facility] FpeaiouDBWERMHSXW6210-78-02 09:17:002.7[facility] HermannCHEM PANEL 2018-06-18 09:16:003.6[facility] HermannCHEM PZXJJ7164-56-13 09:16:002.3[facility] HermannCHEM AVDAR5889-53-12 09:16:0067[facility] HermannCHEM QTBKY8322-21-91 09:16:008.3[facility] HermannCHEM UCKYN5068-83-58 09:16:0029[facility] HermannCHEM MUIND4217-34-25 09:16:50146Plpccbrm HermannCHEM ZPUIF1578-54-06 09:16:89324 [facility] HermannCHEM EKXVP5044-55-06 09:16:004.2[facility] HermannCHEM PANEL 2018-06-18 09:16:0016[facility] HermannCHEM KRXZF7152-25-16 09:16:000.88[facility] HermannCHEM KYPFN4025-75-46 09:16:0084[facility] HermannCHEM WYPJJ3915-38-85 09:16:0012.2[facility] ApsvmalTMMUSKLKDW4672-52-95 09:16:009.4[facility] PXCLZICUNG2589-49-54 09:16:0032.2[facility] MhubqfqEUIBDLUVZV1251-18-10 09:16:00 3.33Mem[facility] FfljprmNPHJKTDOHX8956-35-60 09:16:003.6[facility] HermannHEMATOLOGY 2018-06-18 09:16:0010.7[facility] QmakcnaOIFZMTQPEW9992-56-23 09:16:0096.5[facility] QayklgzDALPYLHGEQ7329-80-61 09:16:0033.2[facility] YgxepncRXVRRSOXWL2793-42-23 09:16:0015.8[facility] KthdpvhGAVYAQBGBM2654-57-21 09:16:00 Test Item Value Reference Range Interpretation Comments MCH (test code = MCH) 32.0 pg 27.0-31.0 [facility] MhdzmdoOKAELEFHDY9986-31-65 09:16:0099[facility]annHEMATOLOGY 2018-06-18 09:16:0050.5[facility] IgjezuvGOHEOBSGGU2666-04-98 09:16:001.8[facility] TolnrlqPGIGFIIXQP4452-87-70 09:16:001.4[facility] EbgrcxpNMWTBZROZN1550-11-42 09:16:000.3[facility] SfjtjpzQHXPFWZCFM6445-88-06 09:16:000.1[facility] FSZCKKNQIH7924-46-27 09:16:0039.0[facility] OtsvzqcZOBXCNVBSF7710-50-02 09:16:00 7.7[facility] JckdjtkZYANOFBGVW9649-95-76 09:16:002.3[facility]annHEMATOLOGY 2018-06-18 09:16:000.5[facility] HermannCHEM AQHRD5136-33-17 21:20:002.2[facility] HermannCHEM UCFKS3157-03-66 21:20:004.5[facility] BniforjFEOZASHZGYWZ3896-18-12 21:20:33305Brofqxsz RlegwakHQGHZJAXEFZZ2760-98-41 21:20:000.75[facility] TPQKUVCYCBQC6978-32-46 21:20:14397Ubqdgaff TwwgcacZFKYSEYDEIIF7578-98-88 21:20:003.7[facility] DuxnuxsCBXLXPTSHCHN4531-10-18 21:20:0012[facility] HKWCXAGRKSGQ5931-72-77 21:20:0086[facility] OsgpyujVCDJJRXYGUGX0277-98-31 21:20:00 82[facility] EkyxudoNCXCMIONTSZC4153-86-44 21:20:0028[facility] HermannELECTROLYTES 2018-06-17 21:20:007.6[facility] GjedkymDMGATXXRGHUQ8169-46-08 21:20:009.7[facility] HermannURINE AND QOWTG1790-96-32 11:13:00 Test Item Value Reference Range Interpretation Comments UA pH (test code = UA pH) 8.5 1 5.0-8.0 [facility] HermannCHEM PNVBL9881-60-99 10:05:96382Kermcqzc HermannCHEM PANEL 2018-06-17 10:05:003.2[facility]annCHEM XWHZA8057-01-35 10:05:01282Fzrbjcsc HermannCHEM DTBMP8999-78-23 10:05:13776Vrbzzguq HermannCHEM EFOEK5745-09-19 10:05:006.0[facility]annCHEM IFPDJ3083-72-03 10:05:000.2[facility] HermannCHEM ICJXG0117-83-46 10:05:00 Test Item Value Reference Range Interpretation Comments A/G Ratio (test code = A/G Ratio) 1.1 1 0.7-1.6 [facility]annCHEM PFOEK1671-30-52 10:05:002.8[facility] HermannCHEM PANEL 2018-06-17 10:05:00 Test Item Value Reference Range Interpretation Comments B/C Ratio (test code = B/C Ratio) 20 1 6-25 [facility] FvxbwaqSRZKLZOAXO8025-23-63 10:05:001.2[facility] HermannHEMATOLOGY 2018-06-17 10:05:000.1[facility] XybaotfUKMNLIVDFE4972-03-14 10:05:000.3[facility] SwyxnnaMAMDNCSPQI6739-62-46 10:05:000.1[facility] GpewmnuSAEUKXTQVU2855-48-62 10:05:0064.4[facility] SzrvrigPPZSTEPSEZ5590-49-35 10:05:0025.4[facility] WZGRLWMMLZ5602-58-37 10:05:003.0[facility] CbmacvqUEZERWJOSD7019-16-46 10:05:007.1 [facility] JqnjsxmIAGPLLMJFP0369-44-32 10:05:001.7[facility] HermannHEMATOLOGY 2018-06-17 10:05:001.4[facility] YjtrtirYCOMQTNYHC6743-04-85 10:05:00 Test Item Value Reference Range Interpretation Comments MCH (test code = MCH) 32.2 pg 27.0-31.0 [facility] FjkdaeqGQLUPIYVLL5089-53-02 10:05:0033.9[facility] HermannHEMATOLOGY 2018-06-17 10:05:36397Mpwvalxd EamxysnPDLZQAFGYU3881-37-90 10:05:009.2[facility] EiticogTHWARFSHOR6345-22-87 10:05:0015.0[facility] JcughefACICWZINDH3097-64-15 10:05:004.7[facility] YbhfxxqBBTGYUKAPH7504-21-13 10:05:003.69[facility] [place] RKSTNNKYUZ4605-21-09 10:05:0035.0[facility] GnkmidgQAMYUQSEEK8414-85-26 10:05:00 94.9[facility] VdvknkhUTTGLUWEQX9113-23-49 10:05:0011.9[facility] HermannTOXICOLOGY 2018-06-17 10:05:0016.8[facility]annURINE AND DJBSP7164-37-05 08:06:00 Test Item Value Reference Range Interpretation Comments UA pH (test code = UA pH) 7.0 1 5.0-8.0 [facility] JAFES0062[facility]54 05:51:00 Test Item Value Reference Range Interpretation Comments A/G Ratio (test code = A/G Ratio) 0.9 1 0.7-1.6 [facility]annCHEM KMIJD5077-03-45 05:51:003.5[facility] HermannCHEM PANEL 2018-06-17 05:51:00 Test Item Value Reference Range Interpretation Comments B/C Ratio (test code = B/C Ratio) 26 1 6-25 [facility]annCHEM JHBFV7523-82-06 05:51:006.6[facility] HermannCHEM PANEL 2018-06-17 05:51:41078Tiqupuvs HermannCHEM BCDZG7042-95-76 05:51:50281Anvjpjbq HermannCHEM FMWAE5527-22-22 05:51:003.1[facility]annCHEM UVGMD2839-46-22 05:51:33977Szisuvzd HermannCHEM JGPHW3741-55-42 05:51:000.3[facility] SCAYGDTDVU3797-74-17 05:51:0026.2[facility] HermannDRUG ZFRGLL8394-59-66 04:22:00 See Note (06/16/18 11:22 PM)[facility]annDR[facility] MUETDS6504-67-27 04:22:00 Negative *NA*(06/16/18 11:22 PM)[facility]annDR[facility] SPSCHP7295-91-37 04:22:00 Negative *NA*(06/16/18 11:22 PM)[facility]annDR[facility] TECTGS1431-38-57 04:22:00 Negative *NA*(06/16/18 11:22 PM)[facility]annDR[facility] OQITOF6686-12-28 04:22:00 Negative *NA*(06/16/18 11:22 PM)[facility]annDR[facility] NZBHCP6331-84-73 04:22:00 Positive *ABN*(06/16/18 11:22 PM)[facility]annDR[facility] OHOEBF2550-06-19 04:22:00 Negative *NA*(06/16/18 11:22 PM)[facility]annDR[facility] GCQFLQ7872-20-85 04:22:00 Negative *NA*(06/16/18 11:22 PM)[facility] AND DSNQB2751-07-40 04:22:00 Test Item Value Reference Range Interpretation Comments UA pH (test code = UA pH) 6.0 1 5.0-8.0 [facility]annCHEM IEYMV4481-23-36 02:34:001.6[facility] HermannCHEM PANEL 2018-06-17 02:34:00<0.05[facility] HermannCHEM KWTGH6509-73-80 02:34:00 Test Item Value Reference Range Interpretation Comments B/C Ratio (test code = B/C Ratio) 26 1 6-25 [facility]annCHEM MLNSW3818-02-51 02:34:006.9[facility] HermannCHEM PANEL 2018-06-17 02:34:0099[facility] HermannCHEM XMFOM6754-99-57 02:34:000.2[facility] HermannCHEM HUJAX0990-68-60 02:34:62309Koulefeq HermannCHEM RWOKN3477-81-30 02:34:93707Knvqnopd HermannCHEM HFQIF7614-21-53 02:34:00 Test Item Value Reference Range Interpretation Comments A/G Ratio (test code = A/G Ratio) 0.9 1 0.7-1.6 [facility]annCHEM ANWNO9335-27-00 02:34:003.2[facility] HermannCHEM PANEL 2018-06-17 02:34:003.7[facility] MaeslmuGVOSHPNXID9301-16-35 02:34:00<2.0 (06/16/18 9:34 PM)[facility] EnovbbbWMUZLKUJPH7525-44-26 02:34:00<3[facility] AxtvfccYSCPDHNCKF8410-41-42 02:34:00<0.003[facility] HermannTOXICOLOGY 2018-06-17 02:34:0034.7[facility]annURINE AND KMQEF9975-39-09 23:55:0014 [facility] TQEBG7913-61-37 23:55:00Negative *NA*(06/16/18 6:55 PM) [facility] AND CJFYU1966-19-60 23:55:00Moderate *ABN*(06/16/18 6:55 PM)[facility] AND WHDOK8481-88-58 23:55:001[facility] AND ESRQN0764-14-51 23:55:00Negative (06/16/18 6:55 PM)[facility] AND JGYUT1580-94-41 23:55:00Negative (06/16/18 6:55 PM)[facility] AND BTREK9509-57-99 23:55:00Clear (06/16/18 6:55 PM)[facility] AND STOOL 2018-06-16 23:55:00Yellow *NA*(06/16/18 6:55 PM)[facility] AND STOOL 2018-06-16 23:55:00 Test Item Value Reference Range Interpretation Comments UA Spec Grav (test code = UA Spec 1.016 1 Grav) [facility]annCARDIAC ZDNTROM6377-81-18 21:38:86709Ahivpugu HermannCARDIAC FWYCXSK5805-40-47 21:38:000.02[facility] HermannCHEM OSUIA5269-36-64 21:38:00 <0.1[facility] WrfzsyyHKTKHORHLK6856-36-69 21:38:000.1[facility] WTNQVWDCBT9111-32-62 21:38:00 Test Item Value Reference Range Interpretation Comments PTT (test code = PTT) 44.5 s 22.9-35.8 [facility] RzgtabsZAMMDPXQIF0532-95-91 21:38:00 Test Item Value Reference Range Interpretation Comments PT (test code = PT) 13.6 s 12.0-14.7 [facility] ScjwxzeNJWDZMSWEF9551-92-55 21:38:00 Test Item Value Reference Range Interpretation Comments INR (test code = INR) 1.06 1 0.85-1.17 [facility] HextxpmRIYMPATYYD0986-25-79 21:38:00<2 (06/16/18 4:38 PM)[facility] HermannBACTERIAL - DMNUVDDJ1408-73-68 21:15:00Negative (06/16/18 4:15 PM)[facility] HermannBASIC METABOLIC [id number] 06:44:00 Test Item Value Reference Range Interpretation Comments SODIUM (BEAKER) 140 meq/L 136-145 (test code = 381) POTASSIUM (BEAKER) 4.4 meq/L 3.5-5.1 Specimen slightly (test code = 379) hemolyzed CHLORIDE (BEAKER) 111 meq/L 98-107 H (test code = 382) CO2 (BEAKER) (test 19 meq/L 22-29 L code = 355) BLOOD UREA NITROGEN 10 mg/dL 7-21 (BEAKER) (test code = 354) CREATININE (BEAKER) 0.77 mg/dL 0.57-1.25 Specimen slightly (test code = 358) hemolyzed GLUCOSE RANDOM 87 mg/dL 70-105 (BEAKER) (test code = 652) CALCIUM (BEAKER) 9.6 mg/dL 8.4-10.2 (test code = 697) EGFR (BEAKER) (test 74 mL/min/1.73 ESTIMA CARMENCITA GFR IS code = 1092) sq m NOT ACCURATE CREATININE CLEARANCE IN PREDICTING GLOMERULAR FILTRATION RATE . ESTIMATED GFR I S NOT APPLICABLE FOR DIALYSIS PATIEN TS. CBC (HEMOGRAM ONLY)2018-05-26 05:59:00 Test Item Value Reference Range Interpretation Comments WHITE BLOOD CELL COUNT (BEAKER) 9.0 K/ L 3.5-10.5 (test code = 775) RED BLOOD CELL COUNT (BEAKER) 4.67 M/ L 3.93-5.22 (test code = 761) HEMOGLOBIN (BEAKER) (test code = 15.1 GM/DL 11.2-15.7 410) HEMATOCRIT (BEAKER) (test code = 47.7 % 34.1-44.9 H 411) MEAN CORPUSCULAR VOLUME (BEAKER) 102.1 fL 79.4-94.8 H (test code = 753) MEAN CORPUSCULAR HEMOGLOBIN 32.3 pg 25.6-32.2 H (BEAKER) (test code = 751) MEAN CORPUSCULAR HEMOGLOBIN CONC 31.7 GM/DL 32.2-35.5 L (BEAKER) (test code = 752) RED CELL DISTRIBUTION WIDTH 13.2 % 11.7-14.4 (BEAKER) (test code = 412) PLATELET COUNT (BEAKER) (test 103 K/CU MM 150-450 L code = 756) MEAN PLATELET VOLUME (BEAKER) 11.3 fL 9.4-12.3 (test code = 754) NUCLEATED RED BLOOD CELLS 0 /100 WBC 0-0 (BEAKER) (test code = 413) CBC W/PLT COUNT & AUTO [id number] 07:56:00 Test Item Value Reference Range Interpretation Comments WHITE BLOOD CELL COUNT (BEAKER) 5.6 K/ L 3.5-10.5 (test code = 775) RED BLOOD CELL COUNT (BEAKER) 4.98 M/ L 3.93-5.22 (test code = 761) HEMOGLOBIN (BEAKER) (test code = 15.8 GM/DL 11.2-15.7 H 410) HEMATOCRIT (BEAKER) (test code = 49.6 % 34.1-44.9 H 411) MEAN CORPUSCULAR VOLUME (BEAKER) 99.6 fL 79.4-94.8 H (test code = 753) MEAN CORPUSCULAR HEMOGLOBIN 31.7 pg 25.6-32.2 (BEAKER) (test code = 751) MEAN CORPUSCULAR HEMOGLOBIN CONC 31.9 GM/DL 32.2-35.5 L (BEAKER) (test code = 752) RED CELL DISTRIBUTION WIDTH 13.5 % 11.7-14.4 (BEAKER) (test code = 412) PLATELET COUNT (BEAKER) (test 117 K/CU MM 150-450 L code = 756) MEAN PLATELET VOLUME (BEAKER) 11.8 fL 9.4-12.3 (test code = 754) NUCLEATED RED BLOOD CELLS 0 /100 WBC 0-0 (BEAKER) (test code = 413) NEUTROPHILS RELATIVE PERCENT 67 % (BEAKER) (test code = 429) LYMPHOCYTES RELATIVE PERCENT 19 % (BEAKER) (test code = 430) MONOCYTES RELATIVE PERCENT 9 % (BEAKER) (test code = 431) EOSINOPHILS RELATIVE PERCENT 3 % (BEAKER) (test code = 432) BASOPHILS RELATIVE PERCENT 1 % (BEAKER) (test code = 437) NEUTROPHILS ABSOLUTE COUNT 3.77 K/ L 1.56-6.13 (BEAKER) (test code = 670) LYMPHOCYTES ABSOLUTE COUNT 1.05 K/ L 1.18-3.74 L (BEAKER) (test code = 414) MONOCYTES ABSOLUTE COUNT (BEAKER) 0.52 K/ L 0.24-0.36 H (test code = 415) EOSINOPHILS ABSOLUTE COUNT 0.18 K/ L 0.04-0.36 (BEAKER) (test code = 416) BASOPHILS ABSOLUTE COUNT (BEAKER) 0.03 K/ L 0.01-0.08 (test code = 417) IMMATURE GRANULOCYTES-RELATIVE 1 % 0-1 PERCENT (BEAKER) (test code = 2801) BASIC METABOLIC [id number] 07:07:00 Test Item Value Reference Range Interpretation Comments SODIUM (BEAKER) 139 meq/L 136-145 (test code = 381) POTASSIUM (BEAKER) 3.6 meq/L 3.5-5.1 Specimen slightly (test code = 379) hemolyzed CHLORIDE (BEAKER) 109 meq/L 98-107 H (test code = 382) CO2 (BEAKER) (test 19 meq/L 22-29 L code = 355) BLOOD UREA NITROGEN 11 mg/dL 7-21 (BEAKER) (test code = 354) CREATININE (BEAKER) 0.84 mg/dL 0.57-1.25 Specimen slightly (test code = 358) hemolyzed GLUCOSE RANDOM 65 mg/dL 70-105 L (BEAKER) (test code = 652) CALCIUM (BEAKER) 9.5 mg/dL 8.4-10.2 (test code = 697) EGFR (BEAKER) (test 67 mL/min/1.73 ESTIMA CARMENCITA GFR IS code = 1092) sq m NOT ACCURATE CREATININE CLEARANCE IN PREDICTING GLOMERULAR FILTRATION RATE . ESTIMATED GFR I S NOT APPLICABLE FOR DIALYSIS PATIEN TS. CBC W/PLT COUNT & AUTO [id number] 18:08:00 Test Item Value Reference Range Interpretation Comments WHITE BLOOD CELL COUNT (BEAKER) 6.8 K/ L 3.5-10.5 (test code = 775) RED BLOOD CELL COUNT (BEAKER) 4.67 M/ L 3.93-5.22 (test code = 761) HEMOGLOBIN (BEAKER) (test code = 15.5 GM/DL 11.2-15.7 410) HEMATOCRIT (BEAKER) (test code = 44.7 % 34.1-44.9 411) MEAN CORPUSCULAR VOLUME (BEAKER) 95.7 fL 79.4-94.8 H (test code = 753) MEAN CORPUSCULAR HEMOGLOBIN 33.2 pg 25.6-32.2 H (BEAKER) (test code = 751) MEAN CORPUSCULAR HEMOGLOBIN CONC 34.7 GM/DL 32.2-35.5 (BEAKER) (test code = 752) RED CELL DISTRIBUTION WIDTH 14.3 % 11.7-14.4 (BEAKER) (test code = 412) PLATELET COUNT (BEAKER) (test 280 K/CU MM 150-450 code = 756) MEAN PLATELET VOLUME (BEAKER) 12.4 fL 9.4-12.3 H (test code = 754) NUCLEATED RED BLOOD CELLS 0 /100 WBC 0-0 (BEAKER) (test code = 413) NEUTROPHILS RELATIVE PERCENT 71 % (BEAKER) (test code = 429) LYMPHOCYTES RELATIVE PERCENT 20 % (BEAKER) (test code = 430) MONOCYTES RELATIVE PERCENT 8 % (BEAKER) (test code = 431) EOSINOPHILS RELATIVE PERCENT 1 % (BEAKER) (test code = 432) BASOPHILS RELATIVE PERCENT 0 % (BEAKER) (test code = 437) NEUTROPHILS ABSOLUTE COUNT 4.82 K/ L 1.56-6.13 (BEAKER) (test code = 670) LYMPHOCYTES ABSOLUTE COUNT 1.33 K/ L 1.18-3.74 (BEAKER) (test code = 414) MONOCYTES ABSOLUTE COUNT (BEAKER) 0.52 K/ L 0.24-0.36 H (test code = 415) EOSINOPHILS ABSOLUTE COUNT 0.08 K/ L 0.04-0.36 (BEAKER) (test code = 416) BASOPHILS ABSOLUTE COUNT (BEAKER) 0.02 K/ L 0.01-0.08 (test code = 417) IMMATURE GRANULOCYTES-RELATIVE 0 % 0-1 PERCENT (BEAKER) (test code = 2801) POCT-GLUCOSE [id number] 12:46:00 Test Item Value Reference Range Interpretation Comments POC-GLUCOSE METER 89 mg/dL 70-110 TESTED AT [facility] [address] (BEAKER) (test code = [place] [address] 1538) VITAMIN B12 AND [id number] 07:42:00 Test Item Value Reference Range Interpretation Comments VITAMIN B12 (BEAKER) (test code = 591 pg/mL 213-816 774) FOLATE (BEAKER) (test code = 362) 12.4 ng/mL >=7.0 BASIC METABOLIC [id number] 07:25:00 Test Item Value Reference Range Interpretation Comments SODIUM (BEAKER) 139 meq/L 136-145 (test code = 381) POTASSIUM (BEAKER) 3.5 meq/L 3.5-5.1 Specimen slightly (test code = 379) hemolyzed CHLORIDE (BEAKER) 104 meq/L 98-107 (test code = 382) CO2 (BEAKER) (test 20 meq/L 22-29 L code = 355) BLOOD UREA NITROGEN 11 mg/dL 7-21 (BEAKER) (test code = 354) CREATININE (BEAKER) 0.86 mg/dL 0.57-1.25 Specimen slightly (test code = 358) hemolyzed GLUCOSE RANDOM 83 mg/dL 70-105 (BEAKER) (test code = 652) CALCIUM (BEAKER) 10.2 mg/dL 8.4-10.2 (test code = 697) EGFR (BEAKER) (test 65 mL/min/1.73 ESTIMA CARMENCITA GFR IS code = 1092) sq m NOT ACCURATE CREATININE CLEARANCE IN PREDICTING GLOMERULAR FILTRATION RATE . ESTIMATED GFR I S NOT APPLICABLE FOR DIALYSIS PATIEN TS. LIPID [id number] 05:57:00 Test Item Value Reference Range Interpretation Comments TRIGLYCERIDES (BEAKER) (test code = 138 mg/dL 540) CHOLESTEROL (BEAKER) (test code = 194 mg/dL 631) HDL CHOLESTEROL (BEAKER) (test code 38 mg/dL = 976) LDL CHOLESTEROL CALCULATED (BEAKER) 128 mg/dL (test code = 633) Triglyceride Reference Range: Low Risk <150 Borderline 150-199 High Risk 200-499 Very High Risk >=500Cholesterol Reference Range: Low Risk <200 Borderline 200-239 High Risk >240HDL Cholesterol Reference Range: Low Risk >=60 High Risk <40LDL Cholesterol Reference Range: Optimal <100 Near Optimal 100-129 Borderline 130-159 High 160-189 Very High >=190 FastingBASIC METABOLIC [id number] 05:57:00 Test Item Value Reference Range Interpretation Comments SODIUM (BEAKER) 139 meq/L 136-145 (test code = 381) POTASSIUM (BEAKER) 3.0 meq/L 3.5-5.1 L (test code = 379) CHLORIDE (BEAKER) 105 meq/L 98-107 (test code = 382) CO2 (BEAKER) (test 23 meq/L 22-29 code = 355) BLOOD UREA NITROGEN 17 mg/dL 7-21 (BEAKER) (test code = 354) CREATININE (BEAKER) 0.98 mg/dL 0.57-1.25 (test code = 358) GLUCOSE RANDOM 90 mg/dL 70-105 (BEAKER) (test code = 652) CALCIUM (BEAKER) 9.5 mg/dL 8.4-10.2 (test code = 697) EGFR (BEAKER) (test 56 mL/min/1.73 ESTIMA CARMENCITA GFR IS code = 1092) sq m NOT ACCURATE CREATININE CLEARANCE IN PREDICTING GLOMERULAR FILTRATION RATE . ESTIMATED GFR I S NOT APPLICABLE FOR DIALYSIS PATIEN TS. FastingCBC W/PLT COUNT & AUTO [id number] 05:39:00 Test Item Value Reference Range Interpretation Comments WHITE BLOOD CELL COUNT (BEAKER) 4.6 K/ L 3.5-10.5 (test code = 775) RED BLOOD CELL COUNT (BEAKER) 4.45 M/ L 3.93-5.22 (test code = 761) HEMOGLOBIN (BEAKER) (test code = 14.1 GM/DL 11.2-15.7 410) HEMATOCRIT (BEAKER) (test code = 43.8 % 34.1-44.9 411) MEAN CORPUSCULAR VOLUME (BEAKER) 98.4 fL 79.4-94.8 H (test code = 753) MEAN CORPUSCULAR HEMOGLOBIN 31.7 pg 25.6-32.2 (BEAKER) (test code = 751) MEAN CORPUSCULAR HEMOGLOBIN CONC 32.2 GM/DL 32.2-35.5 (BEAKER) (test code = 752) RED CELL DISTRIBUTION WIDTH 13.4 % 11.7-14.4 (BEAKER) (test code = 412) PLATELET COUNT (BEAKER) (test 123 K/CU MM 150-450 L code = 756) MEAN PLATELET VOLUME (BEAKER) 10.8 fL 9.4-12.3 (test code = 754) NUCLEATED RED BLOOD CELLS 0 /100 WBC 0-0 (BEAKER) (test code = 413) NEUTROPHILS RELATIVE PERCENT 54 % (BEAKER) (test code = 429) LYMPHOCYTES RELATIVE PERCENT 32 % (BEAKER) (test code = 430) MONOCYTES RELATIVE PERCENT 7 % (BEAKER) (test code = 431) EOSINOPHILS RELATIVE PERCENT 5 % (BEAKER) (test code = 432) BASOPHILS RELATIVE PERCENT 1 % (BEAKER) (test code = 437) NEUTROPHILS ABSOLUTE COUNT 2.51 K/ L 1.56-6.13 (BEAKER) (test code = 670) LYMPHOCYTES ABSOLUTE COUNT 1.50 K/ L 1.18-3.74 (BEAKER) (test code = 414) MONOCYTES ABSOLUTE COUNT (BEAKER) 0.33 K/ L 0.24-0.36 (test code = 415) EOSINOPHILS ABSOLUTE COUNT 0.24 K/ L 0.04-0.36 (BEAKER) (test code = 416) BASOPHILS ABSOLUTE COUNT (BEAKER) 0.04 K/ L 0.01-0.08 (test code = 417) IMMATURE GRANULOCYTES-RELATIVE 0 % 0-1 PERCENT (BEAKER) (test code = 2801) RAPID DRUG SCREEN, [id number] 18:57:00 Test Item Value Reference Range Interpretation Comments BARBITURATE URINE (BEAKER) (test Negative Negative code = 725) BENZODIAZEPINE SCREEN URINE (BEAKER) Negative Negative (test code = 726) COCAINE (METAB.) SCREEN (BEAKER) Negative Negative (test code = 1164) METHADONE SCREEN (BEAKER) (test code Negative Negative = 1436) OPIATE SCREEN URINE (BEAKER) (test Negative Negative code = 734) CANNABINOID SCREEN URINE (BEAKER) Negative Negative (test code = 727) AMPH/METHAMPH SCREEN (BEAKER) (test Negative Negative code = 1438) PHENCYCLIDINE SCREEN URINE (BEAKER) Negative Negative (test code = 608) OXYCODONE SCREEN URINE (BEAKER) Negative Negative (test code = 2761) DRUG CUTOFF CONC.Cocaine 300 ng/mL Cannabinoid 50 ng/mL Benzodiazepine 200 ng/mLBarbiturate 200 ng/mLPhencyclidine 25 ng/mLOpiate 300 ng/mLMethadone 300 ng/mLAmphetamine/ 1000 ng/mL MethamphetamineOxycodone 300 ng/mLThis assay provides an unconfirmed qualitative test result for the clinical management of patients in emergency situations. Chain of custody not maintained. Some vgmk-ase-xacocbb medications, as well as adulterants, may cause inaccurate results. Clinical correlation should be applied. A more comprehensive drug screen or confirmation of a detected drug may be performed upon request.EEG EXTENDED MONITORING > 1 [id number] 16:57:00Reason for exam:->seizure activity Date(s) of EE05/21/18 DATE OF REPORT: 05/21/18 [id number] EEG Number: [id number] Start time:10:39 am Stop time:11:39 am ICD-10: R41.82 Altered Mental Status CPT Code: 74104 EEG: awake and drowsy <40 min TECHNICAL SUMMARY: During the maximally stimulated state, a sporadic, moderate amplitude occipital dominant rhythm of 7-8 Hz activity is evident bilaterally. More anteriorly, similar as well as faster frequency distributions occur. The awake background is further admixed with large amountsof 5-7 Hz theta and some 1.5 to 3 Hz scattered, but fronto-centrally predominant, semi-rhythmic slowwave activities. SLEEP: With drowsiness, the overall background amplitudes are relatively diminished, while increased amounts of diffuse 5-7 Hz theta and rhythmical slowing emerge. The patient does not fully establish sleep during this study. SIGNIFICANT VIDEO EVENTS: Patient was noted by screen making technician to be dazed and confused without EEG correlation. SIGNIFICANT ELECTROCARDIOGRAM EVENTS: None HV: Hyperventilation was not performed. PHOTIC STIMULATION: Photic stimulation was done from 1-30 Hz; no photic driving was seen; photoparoxysmal responses were absent. IMPRESSION: This EEG is abnormal due to mild to moderate diffuse slowing of the background rhythms. COMMENT: Diffuse slowing asin this record supports an underlying mild to moderate encephalopathy. There are no electrographic or clinical seizures The absence of epileptiform abnormality does not necessarily preclude clinical diagnosis of epilepsy nor provoked seizure for the event(s) of interest. Gracie Michaud MD Neurophysi ology Fellow I have reviewed the electroencephalogram and this report and agree with its interpretation. Edgard Velazco MD Neurophysiology Attending POCT-GLUCOSE [id number] 01:21:00 Test Item Value Reference Range Interpretation Comments POC-GLUCOSE METER 88 mg/dL 70-110 TESTED AT [facility] [address] ([facility]) (test code = [place] [address]) CT, CTANGIO [id number] 00:30:00Reason for exam:->stroke alertFINAL REPORT CT, CAROTID, ANGIO, CT, CTANGIO BRAINBRAIN CT WITHOUT CONTRAST INDICATION: Strokestroke alert COMPARISON: CT head of the same date TECHNIQUE:Rapid acquisition spiral images were obtained between the aortic arch and the cranial vertex during intravenous contrast infusion to reconstruct axial images and angiographic 3D maximum intensity projections (MIP). 3-D volumetric reformatted images were created at a dedicated workstation. Stenosis evaluation reported in compliance with NASCET criteria. DOSE REDUCTION: Dose modulation, iterative reconstruction, and/or weight-based adjustment of the mA/kV was utilized to reduce the radiation dose to as low as reasonably ach ievable. FINDINGS: CTA BRAIN:Internal carotid arteries: Petrous, cavernous and supraclinoid portions patent. Middle cerebral arteries: Bilateral MCA M1-M2 branches demonstrate normal contrast enhancement. Anterior cerebral arteries: Bilateral CYNTHIA A1-A2 branches demonstrate normal contrast enhancement. Basilar system: Normal contrast opacification of the vertebrobasilar system. Posterior cerebral arteries: Normal contrast opacification of the bilateral DICTAPHONE TECHNICIAN P1-P2 branches. Venous opacification: Major dural sinuses unremarkable for bolus timing.Additional findings: None. CTA NECK:Common carotid arteries: There is normal contrast opacification of the bilateral common carotid arteries. Ce rvical internal carotid arteries: Right internal carotid artery stent is present. There is near occlusion of the left ICA with significant soft plaque (sagittal image 79). Vertebral arteries: Cervical vertebral arteries are not well seen due to motion artifact and extensive artifact from cervical fusion hardwareArch anatomy: Left subclavian artery stent. Calcific atherosclerotic disease of the aorta.Nonvascular findings: Craniocervical fusion IMPRESSION:Motion limited exam. Right internal carotidartery stent and left subclavian arterial stent. There is focal stenosis with near occlusion of the left proximal cervical ICA with significant soft plaque within the vessel lumen, at least 80% stenosis by NASCET criteria Cervical fusion hardware limits evaluation of the cervical vertebral arteries,which are not well seen. V4 segments demonstrate normal contrast opacification Signed: Deanna Ashby MDReport Verified Date/Time: 05/21/2018 00:30:01 Reading Location: [address] Neuro Reading Room CT, CAROTID, [id number] 00:30:00Reason for exam:- >stroke alertFINAL REPORT CT, CAROTID, ANGIO, CT, CTANGIO BRAINBRAIN CT WITHOUT CONTRAST INDICATION: Strokestroke alert COMPARISON: CT head of the same date TECHNIQUE:Rapid acquisition spiral images were obtained between the aortic arch and the cranial vertex during intravenous contrast infusion to reconstruct axial images and angiographic 3D maximum intensity projections (MIP). 3-D volumetric reformatted images were created at a dedicated workstation. Stenosis evaluation reported in compliance with NASCET criteria. DOSE REDUCTION: Dose modulation, iterative reconstruction, and/or weight-based adjustment of the mA/kV was utilized to reduce the radiation dose to as low as reasonably achievable. FINDINGS: CTA BRAIN:Internal carotid arteries: Petrous, cavernous and supraclinoid portions patent. Middle cerebral arteries: Bilateral MCA M1-M2 branches demonstrate normal contrast enhancement. Anterior cerebral arteries: Bilateral CYNTHIA A1-A2 branches demonstrate normal contrast enhancement. Basilar system: Normal contrast opacification of the vertebrobasilar system. Posterior cerebral arteries: Normal contrast opacification of the bilateral [employer] TE[employer]ICIAN P1-P2 branches. Venous opacification: Major dural sinuses unremarkable for bolus timing.Additional findings: None. CTA NECK:Common carotid arteries: There is normal contrast opacification of the bilateral common carotid arteries. Cervical internal carotid arteries: Right internal carotid artery stent is present. There is near occlusion of the left ICA with significant soft plaque (sagittal image 79). Vertebral arteries: Cervical vertebral arteries are not well seen due to motion artifact and extensive artifact from cervical fusion hardwareArch anatomy: Left subclavian artery stent. Calcific atherosclerotic disease of the aorta.Nonvascular findings: Craniocervical fusion IMPRESSION:Motion limited exam. Right internal carotidartery stent and left subclavian arterial stent. There is focal stenosis with near occlusion of theleft proximal cervical ICA with significant soft plaque within the vessel lumen, at least 80% stenosis by NASCET criteria Cervical fusion hardware limits evaluation of the cervical vertebral arteries, which are not well seen. V4 segments demonstrate normal contrast opacification Signed: Deanna [place] Verified Date/Time: 05/21/2018 00:30:01 Reading Location: [address] Neuro Reading Room BASIC METABOLIC PANEL 2018-05-21 00:29:00 Test Item Value Reference Range Interpretation Comments SODIUM (BEAKER) 138 meq/L 136-145 (test code = 381) POTASSIUM (BEAKER) 3.9 meq/L 3.5-5.1 (test code = 379) CHLORIDE (BEAKER) 105 meq/L 98-107 (test code = 382) CO2 (BEAKER) (test 19 meq/L 22-29 L code = 355) BLOOD UREA NITROGEN 20 mg/dL 7-21 (BEAKER) (test code = 354) CREATININE (BEAKER) 1.20 mg/dL 0.57-1.25 (test code = 358) GLUCOSE RANDOM 91 mg/dL 70-105 (BEAKER) (test code = 652) CALCIUM (BEAKER) 8.9 mg/dL 8.4-10.2 (test code = 697) EGFR (BEAKER) (test mL/min/1.73 INSUFFIC IENT CLINICAL code = 1092) sq m DATA TO CALCULA TE ESTIMATED GFR. RAD, CHEST, 1 VIEW, NON [id number] 00:28:00Reason for exam:->SOBShould this be performed at the bedside?->YesFINAL REPORT History: Shortness of breath. Comparison: None. Findings: A single view of the chest is submitted. 05/20/2018 There is no focal consolidation, pneumothorax, large pleural effusion or evidence of overt pulmonary edema. There is no acute bony abnormality. Fusion hardware in the left forearm is partially visualized. Impression: No acute abnormality. Signed: Jeromy Gudino MDReport Verified Date/Time: 05/21/2018 00:28:25 Reading Location: [address] B-TYPE NATRIURETIC FACTOR (BNP)2018-05-21 00:27:00 Test Item Value Reference Range Interpretation Comments B-TYPE NATRIURETIC PEPTIDE (BEAKER) 115 pg/mL 0-100 H (test code = 700) TROPONIN [id number] 00:26:00 Test Item Value Reference Range Interpretation Comments TROPONIN I (BEAKER) (test code = 0.03 ng/mL 0.00-0.03 397) Troponin I (TnI) levels must be interpreted in the context of the presenting symptoms and the clinical findings. Elevated TnI levels indicate myocardial damage, but are not specific for ischemic heart disease. Elevated TnI levels are seen in patients with other cardiac conditions (including myocarditis and congestive heart failure), and slight TnI elevations occur in patients with other conditions, including sepsis, renal failure, acidosis, acute neurological disease, and persistent tachyarrhythmia.CREATINE KINASE (CK)2018-05-21 00:20:00 Test Item Value Reference Range Interpretation Comments CREATINE KINASE TOTAL (BEAKER) (test 71 U/L 29-200 code = 380) CBC W/PLT COUNT & AUTO [id number] 00:08:00 Test Item Value Reference Range Interpretation Comments WHITE BLOOD CELL COUNT (BEAKER) 11.4 K/ L 3.5-10.5 H (test code = 775) RED BLOOD CELL COUNT (BEAKER) 4.63 M/ L 3.93-5.22 (test code = 761) HEMOGLOBIN (BEAKER) (test code = 14.8 GM/DL 11.2-15.7 410) HEMATOCRIT (BEAKER) (test code = 44.5 % 34.1-44.9 411) MEAN CORPUSCULAR VOLUME (BEAKER) 96.1 fL 79.4-94.8 H (test code = 753) MEAN CORPUSCULAR HEMOGLOBIN 32.0 pg 25.6-32.2 (BEAKER) (test code = 751) MEAN CORPUSCULAR HEMOGLOBIN CONC 33.3 GM/DL 32.2-35.5 (BEAKER) (test code = 752) RED CELL DISTRIBUTION WIDTH 13.3 % 11.7-14.4 (BEAKER) (test code = 412) PLATELET COUNT (BEAKER) (test 165 K/CU MM 150-450 code = 756) MEAN PLATELET VOLUME (BEAKER) 10.4 fL 9.4-12.3 (test code = 754) NUCLEATED RED BLOOD CELLS 0 /100 WBC 0-0 (BEAKER) (test code = 413) NEUTROPHILS RELATIVE PERCENT 82 % (BEAKER) (test code = 429) LYMPHOCYTES RELATIVE PERCENT 12 % (BEAKER) (test code = 430) MONOCYTES RELATIVE PERCENT 3 % (BEAKER) (test code = 431) EOSINOPHILS RELATIVE PERCENT 2 % (BEAKER) (test code = 432) BASOPHILS RELATIVE PERCENT 1 % (BEAKER) (test code = 437) NEUTROPHILS ABSOLUTE COUNT 9.33 K/ L 1.56-6.13 H (BEAKER) (test code = 670) LYMPHOCYTES ABSOLUTE COUNT 1.35 K/ L 1.18-3.74 (BEAKER) (test code = 414) MONOCYTES ABSOLUTE COUNT (BEAKER) 0.38 K/ L 0.24-0.36 H (test code = 415) EOSINOPHILS ABSOLUTE COUNT 0.19 K/ L 0.04-0.36 (BEAKER) (test code = 416) BASOPHILS ABSOLUTE COUNT (BEAKER) 0.08 K/ L 0.01-0.08 (test code = 417) IMMATURE GRANULOCYTES-RELATIVE 0 % 0-1 PERCENT (BEAKER) (test code = 2801) CT, BRAIN/STROKE [id number] 23:34:00Reason for exam:->strokeWhat is the patient's sedation requirement?->No SedationFINAL REPORT CT, BRAIN/STROKE PROTOCOL CLINICAL INDICATION: Strokestroke COMP ARISON: None TECHNIQUE: Noncontrast axial CT imaging of the brain and skull. DOSE REDUCTION: Dose modulation, iterative reconstruction, and/or weight-based adjustment of the mA/kV was utilized to reduce the radiation dose to as low as reasonably achievable. FINDINGS: Streak artifact from craniocervical fusion hardware limits evaluation of the posterior fossa. Within these limitations: No intracranial hemorrhage, midline shift or mass effect. Midline structures are normally developed. Mild chronic microvascular ischemic changes of the periventricular and subcortical white matter are present. Remote appearing infarcts in the right middle frontal gyrus and cerebellum. Hypoattenuation of the bilateral parieto-occipital white matter, of uncertain significance. No hydrocephalus. Orbits are within normal limits. No obstructive paranasal sinus disease. There is partial visualization of a craniocervical fusion. IMPRESSION: 1. Remote infarct of the right frontal lobe2. Chronic-appearing infarct of the left cerebellum. Definitive aging of this infarct is made difficult by adjacent craniocervical fusion hardware3. Hypoattenuation of the parietal and occipital white matter. Although this may simply represent chronic microvascular disease in this age group, posterior reversible encephalopathy syndrome may also be considered in the appropriate clinical context Findings discussed with neurology on-call by Dr. Ashby 11:33 PM If there is persistent clinical concern for intracranial pathology, MR examination is recommended for further characterization. Signed: Deanna Ashby MDReport Verified Date/Time: 05/20/2018 23:34:02 Reading Location: [facility] Neuro Reading Room [U] XRAY FEMUR 2 VWS LEFT [id number] 13:13:00Images acquired, not reported on this accession number.[facility][U] XRAY FEMUR 2 VWS LEFT [id number] 13:04:00Images acquired, not reported on this accession number. [facility]iciansCHEM [id number] 12:26:0042.9[facility] PARATHYROID MZONYWX2400-74-22 12:26:0062.6[facility]annCHE[facility] GPZKE3464-92-41 10:19:002.7[facility]annCHEM HHGLA2742-29-89 10:19:001.9[facility]annCHE[facility] MHTOV5709-29-47 10:19:0097[facility]annCHE[facility] HCONB2192-84-00 10:19:73359 [facility] JXCOU1808-37-72 10:19:008.5[facility]annCHEM PANEL 2017-09-21 10:19:0033[facility]annCHEM XAXKN7422-96-22 10:19:004.1[facility]annCHEM BEHVW0769-62-64 10:19:41831Hvxvczsf HermannCHEM WMVWE1272-55-55 10:19:000.54[facility]annCHEM ZBMQP1821-91-74 10:19:0010[facility]annCHEM ZAKAH7532-85-61 10:19:0092[facility]annCHEM UOBZK7050-06-22 10:19:0011.1 [facility] AtyadyuQLARGXDVYA2479-64-14 10:19:0034.5[facility]annHEMATOLOGY 2017-09-21 10:19:0014.0[facility] XamqvylHUIIWYXRMI0042-52-67 10:19:00 Test Item Value Reference Range Interpretation Comments MCH (test code = MCH) 31.8 pg 27.0-31.0 [facility] LgjpgutFMUZHMPNMT3139-48-67 10:19:23648Gmyfchzb HermannHEMATOLOGY 2017-09-21 10:19:008.8[facility] IkvnncxUVHFOTKLVR3793-01-85 10:19:007.6[facility] DbeowpyPQQTNXXUSP8143-02-06 10:19:004.9[facility] ZybdmulDYDDTKWIMT1302-67-30 10:19:002.38[facility] YovslzqUBDSAVCXND3085-14-98 10:19:0092.1[facility] WLAQYDMALD8103-59-74 10:19:0021.9[facility] SispaumWVFJILITCK4002-96-28 10:19:00 61.4[facility] OfdhmemIJYRONPUJR3004-19-27 10:19:0024.5[facility] HermannHEMATOLOGY 2017-09-21 10:19:001.2[facility] PnandayTPZUWGCEPT6580-87-34 10:19:003.7[facility] HcmbfnbPYSHQMKECX2753-26-49 10:19:000.5[facility] TnfpuybTMMNPMZHPA7871-47-60 10:19:003.0[facility] EcndrvbZVSHJFYYSE0148-15-30 10:19:009.9[facility] XLXNZEQPWI8408-70-45 10:19:000.2[facility] EsrahmfXRUVBDUMGI2931-95-48 10:19:000.5 [facility]annCHEM IYIWJ7603-49-17 10:15:003.3[facility] HermannCHEM PANEL 2017-09-20 10:15:002.0[facility] CkdennhRRYIHSTIULLT1428-31-56 10:15:0012.0 [facility] JprrrbdTSYXQUZSKKPU9895-11-96 10:15:0084[facility] HermannELECTROLYTES 2017-09-20 10:15:004.0[facility] AtswojvJIHUZFQENMWT5338-81-66 10:15:09240Hycrdotq WhzkzydGFYPMHTJSPLO9581-95-48 10:15:008.3[facility] OtalbjrGPHTWVWNRZYP9312-17-73 10:15:000.73[facility] NziozlmFFNULURHGIDZ3387-09-15 10:15:62238Ahlnuwbr [facility] GBXZRJDNIQTV2957-05-26 10:15:0028[facility] ZdzggohAXAIGAUAYJGI7849-54-43 10:15:00 13[facility] AgxoqtjWMQAQIEEUHCP6576-67-82 10:15:40870Tyurckqo HermannHEMATOLOGY 2017-09-20 10:15:0081.6[facility] OotnedqFIEJOLTURA0214-46-17 10:15:000.7[facility] QkyixzaKPFZMXUIOY8953-67-27 10:15:000.4[facility] ZcgfdwkCYTCUNUFGU1431-44-98 10:15:005.0[facility] JvlhorsHLYDCEGMRL1706-49-44 10:15:000.4[facility] PZVMRNINYL4035-98-31 10:15:000.4[facility] KcxdunpCGSCBIIHAE7060-62-77 10:15:006.0 [facility] CgcwdyuFKRMEODWWN0415-19-63 10:15:0011.6[facility]annHEMATOLOGY 2017-09-20 10:15:009.7[facility] UjkohlxBWYQMCFDFS4487-49-61 10:15:0014.2[facility] CgizzozSWJGKRSFVJ7529-77-80 10:15:59237Daqkeffx SisqrpaLYNRYSISDS7851-27-00 10:15:0033.7[facility] XkpyjxmFJEQAPIEYN9419-72-44 10:15:00 Test Item Value Reference Range Interpretation Comments MCH (test code = MCH) 31.2 pg 27.0-31.0 [facility] DwqjbydSKTKWWTURP4072-72-44 10:15:0092.6[facility] HermannHEMATOLOGY 2017-09-20 10:15:009.3[facility] HomcltcVKMCDGKGQR8743-97-54 10:15:002.99[facility] QzmkiezORBIFZTUAF8588-33-54 10:15:0027.6[facility] NeioeclFFHBQFYUJD7884-90-26 10:15:006.1[facility] HermannCHEM TPISB7345-03-03 06:50:002.2[facility]annCHEM PKZBZ6498-17-04 06:50:003.4[facility]annCHEM SJIBV9772-93-47 06:50:0077 [facility]annCHE[facility] TVJQQ6923-99-16 06:50:0083[facility] HermannCHEM PANEL 2017-09-19 06:50:0013[facility]annCHEM RWYXX8306-41-08 06:50:004.0[facility] HermannCHEM KGLOR7194-74-20 06:50:13301Zpoatsny HermannCHEM GBGKY8449-30-40 06:50:008.9[facility]annCHEM RSLKY7252-88-70 06:50:0024[facility]annCHEM BKUDC1938-02-55 06:50:0014.0[facility]annCHEM TFLAE2252-51-51 06:50:67016 [facility]annCHEM WAOCP1604-59-52 06:50:000.79[facility]annHEMATOLOGY 2017-09-19 06:50:0014.6[facility] WjpryfiCDSWDVZOKX5556-35-17 06:50:0033.9[facility] IigkhggOVCZVSXSRE2023-33-85 06:50:009.1[facility] MoacsaxBJGSFOWCQE1586-84-90 06:50:69302Otktmjev UtuamktWWXRGDAPGD4289-72-42 06:50:0013.6[facility] AHYLVHFTCI8236-26-64 06:50:004.30[facility] EbexwzoIYYVQPCSEG2823-04-86 06:50:00 Test Item Value Reference Range Interpretation Comments MCH (test code = MCH) 31.6 pg 27.0-31.0 [facility] ArnbfzsXDCASZXDDC9927-25-95 06:50:0093.2[facility] HermannHEMATOLOGY 2017-09-19 06:50:0040.1[facility] JlhvgawDZZRYSEGVL5797-48-71 06:50:005.8[facility] YegggfrEUMACHMPAY9168-72-18 06:50:000.1[facility] IjdjukbHKAMIMGJHS3287-74-71 06:50:000.4[facility] VdlgykfUELVLOINOC0950-39-56 06:50:000.6[facility] CQRSDVMZFV4606-41-30 06:50:004.7[facility] HqcvrdhBGMMJHYUPD8734-31-19 06:50:000.5 [facility] MvaewqsANGYJLQCFX8002-40-16 06:50:001.3[facility] HermannHEMATOLOGY 2017-09-19 06:50:006.5[facility] IkjykhcWLTKYEHPHC9107-01-50 06:50:0010.5[facility] PhapbunTUIDOYEYJI5101-53-30 06:50:0081.2[facility] HermannBLOOD BANK RESULTS 2017-09-19 04:29:00Negative (09/18/17 11:29 PM)[facility] AND STOOL 2017-09-19 00:54:00Negative (09/18/17 7:54 PM)[facility] STOOL 2017-09-19 00:54:00Trace *ABN*(09/18/17 7:54 PM)[facility] STOOL 2017-09-19 00:54:002.0[facility] AND RWFIL7877-43-56 00:54:00Small *ABN*(09/18/17 7:54 PM)[facility] XPYEV8952-33-13 00:54:00Negative *NA*(09/18/17 7:54 PM)[facility] PHTYM2374-29-05 00:54:00Negative *NA*(09/18/17 7:54 PM)[facility] ZXQDC8727-78-91 00:54:000-2 (09/18/17 7:54 PM)[facility] JMBMB2805-40-13 00:54:00Negative (09/18/17 7:54 PM)[facility] JTPYF5458-73-84 00:54:00Negative (09/18/17 7:54 PM)[facility] AJSZM4266-40-59 00:54:00Slight Cloudy (09/18/17 7:54 PM)[facility] AND KPWKJ6705-03-56 00:54:00Yellow *NA*(09/18/17 7:54 PM)[facility] DFVYA8635-69-45 00:54:00 Test Item Value Reference Range Interpretation Comments UA pH (test code = UA pH) 6.0 1 5.0-8.0 [facility] AND NEILT0504-88-87 00:54:00 Test Item Value Reference Range Interpretation Comments UA Spec Grav (test code = UA Spec 1.025 1 Grav) [facility]annCARDIAC GEKOEXQ5970-65-94 00:35:00<0.02[facility] HermannCHEM OJPTA8731-53-74 00:35:000.8[facility] FwejmsmYIJNCBMBRW3900-19-51 00:35:00 Test Item Value Reference Range Interpretation Comments PTT (test code = PTT) 29.1 s 22.9-35.8 [facility] GbgdvjhFPYNXBMJLB9798-85-34 00:35:00 Test Item Value Reference Range Interpretation Comments PT (test code = PT) 14.3 s 12.0-14.7 [facility] OzvqfapHOUFWRJLCM7026-13-83 00:35:00 Test Item Value Reference Range Interpretation Comments INR (test code = INR) 1.11 1 0.85-1.17 [facility][U] XRAY FOREARM 2 VWS LEFT [id number] 12:25:00Images acquired, not reported on this accession number.[facility] [U] XRAY ANKLE MIN 3 VWS RIGHT [id number] 12:25:00Images acquired, not reported on this accession number.[facility][U] XRAY FEMUR 2 VWS LEFT [id number] 12:25:00Images acquired, not reported on this accession number.[facility][U] XRAY ELBOW MIN 3 VWS LEFT [id number] 12:25:00Images acquired, not reported on this accession number. [facility][U] XRAY FOOT MIN 3 VWS RIGHT [id number] 12:25:00Images acquired, not reported on this accession number.[facility][U] XRAY ANKLE MIN 3 VWS RIGHT [id number] 11:55:00Images acquired, not reported on this accession number.[facility] [U] XRAY FEMUR 2 VWS LEFT [id number] 11:55:00Images acquired, not reported on this accession number.[facility][U] XRAY FOOT MIN 3 VWS RIGHT [id number] 11:55:00Images acquired, not reported on this accession number.[facility][U] XRAY FOREARM 2 VWS LEFT [id number] 11:55:00Images acquired, not reported on this accession number.[facility]iciansCHEM ZRIUB4536-84-71 07:17:003.8[facility] HermannCHEM PANEL 2017-01-18 07:17:002.1[facility] HpaigxxIAMTPOEYOSJL6633-33-93 07:17:0013.0 [facility] UlgtyqtHDBCCFINOYPG1929-20-39 07:17:0093[facility] HermannELECTROLYTES 2017-01-18 07:17:0095[facility] SgpbvweQJJIIOKUCYSE2260-09-85 07:17:0024[facility] UrhebnmAUKXRFVMWLQP8788-74-20 07:17:39211Knlaauua FhihqknVXIOLPJPPWMF4949-95-91 07:17:000.63[facility] TftntzuYXXUMCEPPEJV2311-73-82 07:17:004.0[facility] OYYLPQQDGRXJ6033-95-58 07:17:96775Uzzezjqy EwrnxviFFDGXQOOZOQH5364-21-72 07:17:0027[facility] PfkcvhlGLYSHKSWSVBV3400-19-52 07:17:008.9[facility] FQFFBETLAB5666-90-59 07:17:003.50[facility] DjokjfiXBXSXHUWJU6575-05-30 07:17:00 11.0[facility] GevnlhgHXZXLHCFNS1649-12-21 07:17:005.1[facility]annHEMATOLOGY 2017-01-18 07:17:0032.4[facility] IrpfspoAXFVYAEGNL1693-03-59 07:17:0092.8[facility] BzkjbmyOCLSOYEXPG9836-90-90 07:17:0033.9[facility] FnslvihCFTOMBMVDK4393-92-47 07:17:0023.8[facility] QqedwosNNIUHDWZUZ8030-96-00 07:17:00 Test Item Value Reference Range Interpretation Comments MCH (test code = MCH) 31.4 pg 27.0-31.0 [facility] YsanvgfUGJYTRVPQK9336-57-99 07:17:008.0[facility]annHEMATOLOGY 2017-01-18 07:17:55396Sgpmuqid HxykucoHZILANIBVI5933-53-51 07:17:000.5[facility] LnzcjntSMTFDNPRVE1291-65-41 07:17:000.3[facility] QsprlfnHHXUCOCBNI6243-81-50 07:17:001+ *ABN*(01/18/17 1:17 AM)[facility] NoswgqtHPZRXBXUYG8764-45-69 07:17:00 3.2[facility] LopwvsrQSHTUEKWYI6065-52-04 07:17:001.1[facility]annHEMATOLOGY 2017-01-18 07:17:0021.5[facility] WdwmwljKWKATICRQV8161-48-25 07:17:0061.6[facility] ZybjbbzMHMVGRUUSM0640-34-72 07:17:009.5[facility] SykmlshSXKWGHKFRZ8608-90-23 07:17:000.7[facility] YtsthbgXOBMVBUNRE4065-36-50 07:17:006.7[facility] AND QNTHJ3658-52-90 16:11:001[facility] SAOPQ5424-45-90 16:11:00 Large *ABN*(01/12/17 10:11 AM)[facility] HNSVI2684-53-56 16:11:00 65[facility] FTZZM1497-18-91 16:11:001[facility] TDORG8000-92-63 16:11:00Negative *NA*(01/12/17 10:11 AM)[facility] TNHXQ8240-02-30 16:11:00Trace *ABN*(01/12/17 10:11 AM)[facility] ECVFX5833-46-10 16:11:00Negative (01/12/17 10:11 AM)[facility] BCQHA9546-66-26 16:11:00Yellow *NA*(01/12/17 10:11 AM)[facility] LAHMB4751-44-31 16:11:007.5[facility] OLMPU8192-92-07 16:11:00 1.010[facility] AFZXK2858-30-28 16:11:00Slight *ABN*(01/12/17 10:11 AM)[facility]annCHEM LMKNP4264-30-02 08:20:38885Lqnrzwaa HermannCHEM PVTSG9117-09-71 08:20:08443Kfdxxgam HermannCHEM ZZNTO6962-52-54 08:20:26777 [facility]annCHEM OBUDG8616-94-10 08:20:003.9[facility] HermannCHEM PANEL 2017-01-11 08:20:000.45[facility] HermannCHEM OMWGV9027-81-22 08:20:008.6[facility]annCHEM FJOMN9673-37-06 08:20:0024[facility]annCHEM TKAZF9652-61-48 08:20:0097[facility]annCHEM JHTVK2351-68-19 08:20:0026[facility]annCHEM ZUTJF7590-09-68 08:20:0010.9[facility]annCHEM HFPYG4411-28-07 08:20:002.2 [facility]annCHEM WTYER2864-55-07 08:20:003.8[facility]annHEMATOLOGY 2017-01-11 08:20:00 Test Item Value Reference Range Interpretation Comments MCH (test code = MCH) 29.9 pg 27.0-31.0 [facility] FfdfoaoVLYVKUGSLS5752-55-28 08:20:008.3[facility]annHEMATOLOGY 2017-01-11 08:20:0032.7[facility] TcpszpbESJRUDXFYV0637-56-28 08:20:43640Jafxdcbc YdoyfzoUUGWSZJYHP6727-81-96 08:20:0023.5[facility] UljekufOQCANYDUWB6559-43-81 08:20:0011.0[facility] YvxgwcwAOBGNYLUXC3475-06-06 08:20:009.8[facility] RARXMRTPFX8638-47-19 08:20:003.26[facility] AtrzvliAYCDJCJIJS0533-08-07 08:20:00 91.7[facility] JkjxlyzJUJWLAGVZJ1938-50-50 08:20:0029.9[facility]annHEMATOLOGY 2017-01-11 08:20:009.2[facility] QbthespRMNDQYLHYL7297-12-54 08:20:000.5[facility] EkskqdyTOFHYVDXWK0877-69-29 08:20:004.3[facility] LwnefymUKAKZFWTOH4851-38-85 08:20:008.6[facility] RpuffirRNWUQZJEJP0617-07-34 08:20:0083.3[facility] ZZFEGBQOJW5742-11-54 08:20:003.3[facility] GcsqhrmCEAWSXSYIK8579-13-87 08:20:001+ *ABN*(01/11/17 2:20 AM)[facility] DjubrljRJHPAYVEWX3011-86-72 08:20:000.1[facility] AxzyujyPBWUAHEPNZ3798-67-90 08:20:000.5[facility] PzukgtiRVAKYQLMXU3973-57-51 08:20:000.9[facility] JhupjoiSCZQYRYBOW8234-92-16 08:20:000.4[facility] HermannCHEM VTDYC1898-47-62 06:28:002.3[facility]annCHEM NKPLP5666-85-28 06:28:003.0 [facility]annCHEM OZCJI7647-42-61 06:28:92590Tqznjsqg HermannCHEM PANEL 2017-01-09 06:28:08544Xagoojbr HermannCHEM HWKUY6310-82-92 06:28:008.1[facility] HermannCHEM QMTPY2938-41-05 06:28:003.7[facility]annCHEM HFSJY0098-98-86 06:28:40801Vjwokyzb HermannCHEM UVXRK6691-53-38 06:28:0026[facility]annCHEM KDBZO6310-69-21 06:28:000.29[facility]annCHEM TEOXQ6160-48-39 06:28:0031 [facility]annCHEM IRDAK6272-22-49 06:28:47124Xkknnklg HermannCHEM PANEL 2017-01-09 06:28:0011.7[facility] FkabrpjNIMJWCHFMG0039-68-35 06:28:88375Bstzzvlo IezmgswREUVWQYBXW1070-62-19 06:28:008.1[facility] TqzksetLBMERDNKUQ0715-68-62 06:28:00 Test Item Value Reference Range Interpretation Comments MCH (test code = MCH) 29.5 pg 27.0-31.0 [facility] GttzcqxSCZKVSXDXW1330-71-67 06:28:0090.7[facility] HermannHEMATOLOGY 2017-01-09 06:28:0032.5[facility] WoyarmfFHLOATAVMM5667-33-65 06:28:0019.7[facility] ThnufvnNSTYRMRJXH7134-81-52 06:28:0029.4[facility] JpciivlUOBLPXDMWH1309-09-63 06:28:009.6[facility] BrwoeaaMSDCNYEJGF6126-75-64 06:28:009.5[facility] PYBZLEMOTD4501-41-80 06:28:003.24[facility] RebtvunWEPDUZZGRV9602-41-74 06:28:00 82.1[facility] DhfwkegQDFXMXVATW3103-59-51 06:28:000.4[facility]annHEMATOLOGY 2017-01-09 06:28:009.1[facility] AgtqmahQLTASEOKYT8620-36-24 06:28:000.4[facility] QsbpfzoRLKRRLHQYU9256-39-29 06:28:007.9[facility] EdbzdhvBDYQQCAWUJ4522-69-94 06:28:000.4[facility] OzyumjdWEYGDAGUNY3455-33-11 06:28:000.9[facility] OVRONFLDBG5015-71-53 06:28:004.0[facility] KzhapdaZMCOWSLUGA1542-64-26 06:28:004.4 [facility]annPARATHYROID GHHWEQB1009-93-30 06:28:001.15[facility] PARATHYROID DCPDZVW4167-15-23 06:28:001.14[facility]annURINE FVAP3149-96-82 13:21:07076Txzsewmn HermannBLOOD BANK FWIZVVA0021-96-49 06:11:00Negative (01/03/17 12:11 AM)[facility]annCARDIAC ZZYIXXV3544-42-72 06:11:001.2[facility]annCARDIAC JHOGGCU6190-33-12 06:11:001.4[facility]annCARDIAC ENZYMES 2017-01-03 06:11:0085[facility]annCARDIAC IJGKXMW4620-01-51 06:11:00<0.02 [facility] SowtlwjFEFWFVOGVD7403-72-29 06:11:001+ *ABN*(01/03/17 12:11 AM)[facility]annCARDIAC MPRIXKY5004-39-36 22:32:53150Bqyexfbq HermannCARDIAC ENZYMES 2017-01-02 22:32:37<0.02[facility]annCARDIAC KCGPGJZ3890-90-36 22:32:37 0.065[facility]annCARDIAC JAJGAKN3483-38-06 22:32:372.2[facility] CARDIAC VJETNXO5241-47-60 22:32:371.5[facility]annPARATHYROID PROFILE 2017-01-02 22:32:371.26[facility]annPARATHYROID KUTOLFQ0237-79-50 22:32:37 1.19[facility] ZvlqoegGJYWGFEXHW4516-83-84 09:28:000.1[facility]annHEMATOLOGY 2017-01-01 04:52:000.1[facility] GoqzalhLVYZVYVZCI8945-73-33 04:52:00Normal (12/31/16 10:52 PM)[facility] VwqvgehCESNHAVOAU4992-99-20 04:52:0022.2[facility] GjjrtumSICKIYKYFE1916-84-61 04:52:53015.0[facility]annURINE UZUV2695-51-83 20:32:0021.50[facility]annURINE IZKT5265-25-28 20:32:0059[facility] HermannCHEM XOVHH1492-60-40 07:00:0016.2[facility] FpjgijxPULZFXNRQV8371-15-02 07:00:00See Note 1(12/26/16 1:00 AM)[facility] EtdnnkoXOQFEKVUWS0350-85-07 07:00:00Normal (12/26/16 1:00 AM)[facility]annPARATHYROID DBVSVQH9795-35-07 07:00:001.06 [facility]annPARATHYROID NIOFMLA6741-83-22 07:00:001.02[facility] PARATHYROID TNGITBC2783-69-85 07:00:06322.2[facility] JggdhaqLBLVPIURIC9879-35-67 01:05:00 Test Item Value Reference Range Interpretation Comments ACT (TEG) Rapid (test code = ACT (TEG) 97 s 86-118 Rapid) [facility]39[facility]63 01:05:00 Test Item Value Reference Range Interpretation Comments R-time Rapid (test code = R-time 0.5 min 0.4-0.7 Rapid) [facility] HospitalAwpobnfTEOAJKLKNB1045-65-53 01:05:00 Test Item Value Reference Range Interpretation Comments Split Point Rapid (test code = Split 0.4 min Point Rapid) [facility]ZfokhceZIFFWEBOQD2324-54-39 01:05:00 Test Item Value Reference Range Interpretation Comments Max Amplitude Rapid (test code = Max 73 mm 52-71 Amplitude Rapid) [facility] JhjtepmCYVCXNECXN1652-51-13 01:05:00 Test Item Value Reference Range Interpretation Comments Angle Rapid (test code = Angle 80 degrees 64-80 Rapid) [facility] RrtdpsvQNJZVTRISU9098-72-73 01:05:0013.3[facility] 2016-12-26 01:05:00 Test Item Value Reference Range Interpretation Comments K-time Rapid (test code = K-time 0.8 min 0.6-2.3 Rapid) [facility] HospitalUimwxnpUVOCTXPQMA2952-48-55 01:05:000.1[facility]annBL[facility] YIGCVUN0341-12-53 11:48:00Product available (12/25/16 5:48 AM)[facility] BLOOD BANK HHDXMYD7393-15-59 06:12:00Negative (12/25/16 12:12 AM)[facility] HospitalMuanqwsOBIEGJTJWV8944-20-02 06:12:00 Test Item Value Reference Range Interpretation Comments PT (test code = PT) 14.6 s 12.0-14.7 [facility] IwusdmhDHRCYDOJEE0527-43-23 06:12:001.14[facility]annHE[facility]OLOGY 2016-12-25 06:12:00 Test Item Value Reference Range Interpretation Comments PTT (test code = PTT) 31.1 s 22.9-35.8 [facility] HospitalWlxftqiJEEMJWLQDU7856-60-94 06:12:001.14[facility]annHE[facility]OLOGY 2016-12-25 06:12:00 Test Item Value Reference Range Interpretation Comments PT (test code = PT) 14.6 s 12.0-14.7 [facility] HospitalannMOLECULAR WTDOIBJTWY1470-10-43 21:00:00Negative (12/23/16 3:00 PM)[facility] UashrtzQXZQTVFOGV0806-71-57 14:26:0023.6[facility] HermannTOXICOLOGY 2016-12-23 14:26:708514Apaafhim XiygnmvDAXCKBUGFS2818-87-28 05:42:331410Lzcxccht XkwmtgdTCWRHDLYRE5587-74-92 05:42:0029.8[facility]annBL[facility] RESULTS 2016-12-20 10:26:00Negative (12/20/16 4:26 AM)[facility] 2016-12-20 01:50:00Product available (12/19/16 7:50 PM)[facility]annBL[facility] DTNTLJW8920-12-69 21:36:00Product available (12/19/16 3:36 PM)[facility]TvinjudJGMGOGTCOS5879-73-10 02:08:000.25[facility] RES[facility] 2016-12-17 21:41:00Product available (12/17/16 3:41 PM)[facility] [id number] 18:43:00 Test Item Value Reference Range Interpretation Comments PTT 1:1 1Hr (test code = PTT 1:1 1Hr) 38.7 s [facility]YfqhrwgWHPCWDGGOE6871-47-65 18:43:00 Test Item Value Reference Range Interpretation Comments PTT 1:1 Imm (test code = PTT 1:1 Imm) 34.6 s [facility] HospitalSthzwnoIXZGVYODTQ8281-05-48 18:43:00 Test Item Value Reference Range Interpretation Comments PTT Baseline (test code = PTT 41.2 s 22.9-35.8 Baseline) [facility]JdlzvojVCAJUUCDLS5415-43-36 18:43:00 Test Item Value Reference Range Interpretation Comments TT Baseline (test code = TT Baseline) 16.0 s 15.0-21.1 [facility] HospitalAquazfgNDGMXAIWRI5910-21-95 18:43:00 Test Item Value Reference Range Interpretation Comments PT 1:1 1Hr (test code = PT 1:1 1Hr) 13.2 s [facility] HospitalLhqjgykEWBSNXSMCX0589-27-58 18:43:00 Test Item Value Reference Range Interpretation Comments PT Baseline (test code = PT Baseline) 14.3 s 12.0-14.7 [facility] HospitalRejkxaaHVRCALDNZU8801-24-76 18:43:00 Test Item Value Reference Range Interpretation Comments PT 1:1 Imm (test code = PT 1:1 Imm) 13.0 s [facility] HospitalJhdhhfzCMHFIXQQCK2829-37-91 18:43:00 Test Item Value Reference Range Interpretation Comments ACT (TEG) Rapid (test code = ACT (TEG) 89 s 86-118 Rapid) [facility] HospitalCrgikfvNOOBGYFOES0799-08-36 18:43:00 Test Item Value Reference Range Interpretation Comments R-time Rapid (test code = R-time 0.4 min 0.4-0.7 Rapid) [facility] HospitalRhtponvOOEBQDYWLG9484-36-29 18:43:00 Test Item Value Reference Range Interpretation Comments Split Point Rapid (test code = Split 0.3 min Point Rapid) [facility] HospitalXwmevauGBIMSEDTSL1827-87-07 18:43:00 Test Item Value Reference Range Interpretation Comments Angle Rapid (test code = Angle 80 degrees 64-80 Rapid) [facility] HospitalYhpnmtrIHLGDDKZEL6257-68-02 18:43:00 Test Item Value Reference Range Interpretation Comments K-time Rapid (test code = K-time 0.8 min 0.6-2.3 Rapid) [facility] HospitalUmxlbmtTEFEQQRWCP6269-72-75 18:43:00 Test Item Value Reference Range Interpretation Comments Max Amplitude Rapid (test code = Max 74 mm 52-71 Amplitude Rapid) [facility] HospitalIedhxaiLNDQCVHZOX1639-67-91 18:43:000.0[facility]annHEMATOLOGY 2016-12-17 18:43:0014.3[facility] HermannCHEM RSKBE0167-30-31 06:26:71728Xusbofmi WtblggjEVJYWLMCWL9628-16-16 06:26:00Normal (12/17/16 12:26 AM)[facility] XRRUIVEKKJ4572-48-93 06:26:002[facility] YchwerpROKKEOMJHI5958-32-55 06:26:001.0 [facility] IbxtnjiRBPZOCPPWB5189-68-61 06:26:001.0[facility]annHEMATOLOGY 2016-12-17 06:26:000.0[facility] CenterannBLOOD BANK BBIKBKW7686-21-59 15:20:00 Product available (12/16/16 9:20 AM)[facility]BL[facility] ZZLDRCA5959-73-54 15:06:00Product available (12/16/16 9:06 AM)[facility]annHEMATOLOGY 2016-12-16 06:00:008.0[facility]annCARDIAC XFZLHPI3726-25-98 11:49:004.5 [facility]annCARDIAC UFYHHQK8467-20-76 11:49:000.3[facility]annCARDIAC LATCVDH2777-70-89 11:49:643540Igwcmxcz HermannCARDIAC CAZEAJJ5487-27-37 11:49:00 0.05[facility]annCARDIAC WHNDQBY3242-00-25 11:49:000.024[facility] HermannCHEM TUDYT1577-90-88 11:49:10733Gdztvohk HermannCARDIAC LEFZIGR6878-72-98 05:00:00 0.024[facility] SqcrhdoSTDVTEXSXM3628-17-76 05:00:000.0[facility]annHEMATOLOGY 2016-12-15 05:00:0010.4[facility] MwlgkuuTYQLRBJCKW8582-17-35 05:00:00 Test Item Value Reference Range Interpretation Comments Max Amplitude Rapid (test code = Max 68 mm 52-71 Amplitude Rapid) [facility] HospitalZnlphfnEDENJPWILS5058-31-93 05:00:00 Test Item Value Reference Range Interpretation Comments K-time Rapid (test code = K-time 1.0 min 0.6-2.3 Rapid) [facility] HospitalWwcsektBUFDNEKLFJ0870-80-23 05:00:00 Test Item Value Reference Range Interpretation Comments Angle Rapid (test code = Angle 76 degrees 64-80 Rapid) [facility] HospitalOmojfslISNBDXWYDS9637-04-18 05:00:00 Test Item Value Reference Range Interpretation Comments Split Point Rapid (test code = Split 0.3 min Point Rapid) [facility] HospitalGujmfkiRCEVXGINMV9791-66-36 05:00:00 Test Item Value Reference Range Interpretation Comments R-time Rapid (test code = R-time 0.5 min 0.4-0.7 Rapid) [facility] HospitalUsuyycxXJYSRUZFKE1433-85-49 05:00:00 Test Item Value Reference Range Interpretation Comments ACT (TEG) Rapid (test code = ACT (TEG) 97 s 86-118 Rapid) [facility]2017-11-09 11:25:82052XglliewyC[facility] 2016-12-14 06:31:00See Note (12/14/16 12:31 AM)[facility] 2016-12-14 06:31:000.5[facility] Centerri[facility] CenterXyzqiimBLVBPADXUV3212-62-03 06:31:008.1[facility] HospitalHvsneamKFXZBAXVAN2389-33-01 06:31:002.7[facility] CenterriNorth [facility] Medical CenterCenbfizSZJXQNNNOP0025-59-34 06:31:00 Test Item Value Reference Range Interpretation Comments Max Amp (test code = Max Amp) 61.8 mm 50.0-70.0 [facility] HospitalEycbbpaMTABYXWWQA6106-95-33 06:31:00 Test Item Value Reference Range Interpretation Comments R-time (test code = R-time) 2.5 min 5.0-10.0 [facility] HospitalRfsywuhBCSPKFZUUD9760-65-68 06:31:00 Test Item Value Reference Range Interpretation Comments K-time (test code = K-time) 1.6 min 1.0-3.0 [facility] HospitalAdeuqyjRAMKISELWO3809-53-43 06:31:00 Test Item Value Reference Range Interpretation Comments Angle (test code = Angle) 68.5 degrees 53.0-72.0 [facility] HospitalZbhuncfALTMNGWFWF2628-80-28 06:31:00 Test Item Value Reference Range Interpretation Comments PTT (test code = PTT) 28.2 s 22.9-35.8 [facility] HospitalDvhqhzyVNABVEKOTA6724-80-92 06:31:00 Test Item Value Reference Range Interpretation Comments PT (test code = PT) 19.4 s 12.0-14.7 [facility] HospitalQrijkkkSRYPIDMAJG0177-37-74 06:31:001.62Me[facility] 2016-12-14 06:31:25127Uqnkkikn MfafoirJYOLHXTIOV8959-45-94 14:29:00 Test Item Value Reference Range Interpretation Comments PTT (test code = PTT) 32.3 s 22.9-35.8 [facility] RyoeqynOKVKXGMXKN2563-93-17 04:10:009.0[facility]annHEMATOLOGY 2016-12-13 04:10:000.0[facility] PsqzauoJBCPWEIHLQ9241-59-04 04:10:001.0[facility] HermannDRUG GZOGQY8874-44-36 00:14:00See Note *NA*(12/12/16 6:14 PM)[facility] HermannDRUG [id number] 00:14:00Negative *NA*(12/12/16 6:14 PM)[facility]annDRUG IUCZGX1494-89-39 00:14:00Negative *NA*(12/12/16 6:14 PM)[facility]annDR[facility] IZWSHY7199-38-16 00:14:00Negative *NA*(12/12/16 6:14 PM)[facility]annDR[facility] OHQAEL0662-30-94 00:14:00Negative *NA*(12/12/16 6:14 PM)[facility]annDR[facility] DQDTJG9288-14-58 00:14:00Negative *NA*(12/12/16 6:14 PM)[facility]annDR[facility] VQUYVO8096-42-97 00:14:00Negative *NA*(12/12/16 6:14 PM)[facility]annDRUG OSPGFM6600-58-42 00:14:00Negative *NA*(12/12/16 6:14 PM)[facility]annUR[facility] AND [id number] 00:00:00 Test Item Value Reference Range Interpretation Comments UA Spec Grav (test code = UA Spec 1.018 1 Grav) [facility] AND [id number] 00:00:00Trace *ABN*(12/12/16 6:00 PM) [facility] [id number] 00:00:00 Test Item Value Reference Range Interpretation Comments UA pH (test code = UA pH) 6.0 1 5.0-8.0 [facility] [id number] 00:00:00Negative *NA*(12/12/16 6:00 PM) [facility] [id number] 00:00:00Negative (12/12/16 6:00 PM) [facility] [id number] 00:00:00Large *ABN*(12/12/16 6:00 PM) [facility] EPHXH9315-69-87 00:00:00Negative *NA*(12/12/16 6:00 PM) [facility] NWOLS5502-97-75 00:00:00Negative (12/12/16 6:00 PM) [facility] IJHRP9474-05-17 00:00:000.2[facility]annUR[facility] AND OOTAS5834-08-61 00:00:00Negative (12/12/16 6:00 PM)[facility] [id number] 00:00:00Yellow *NA*(12/12/16 6:00 PM)[facility] NCHRJ7309-77-30 00:00:00Clear (12/12/16 6:00 PM)[facility] HermannCHEM PANEL 2016-12-12 23:25:002.0[facility] HermannCHEM GEHNE6899-57-46 21:40:003.8[facility] FpkkfyvYMDGICJZZSYXP8856-42-78 21:40:00Negative *NA*(12/12/16 3:40 PM)[facility]
--- NOTE | 2020-07-23 19:34 | RAD REPORT ---
EXAM DESCRIPTION: CT - Head Brain Wo Cont - 07/23/2020 7:27 pm CLINICAL HISTORY: MENTAL STATUS CHANGE, history of traumatic brain injury COMPARISON: No comparisons TECHNIQUE: Axial 5 mm thick images of the head were obtained without IV contrast. All CT scans are performed using dose optimization technique as appropriate and may include automated exposure control or mA/KV adjustment according to patient size. FINDINGS: No intracranial hemorrhage, mass, edema or shift of mid-line structures. No acute infarcti on changes seen. No cortical edema or sulcal effacement. Diminished attenuation in the right frontal lobe white matter could be the sequela of prior brain injury. This this could be old infarction haynes e but does not appear to have any acute component. Postsurgical changes are present to the midline pina boccipital skull. There is a 2.5 centimeter area of diminished attenuation in the left cerebellar hem isphere that may be old ischemic or traumatic injury. Atrophy changes are minimal. Ventricles are nor mal. Mastoid air cells and visualized portions of the paranasal sinuses are clear. No acute bony findings. IMPRESSION: Negative non-contrast CT head examination for acute findings. Diminished attenuation in the right frontal lobe and left cerebellum could be the sequela of prior tr auma or old ischemic insult.
[2020-07-23 19:46] LABS: Absolute Lymphocytes (CBC) 1.7 K/uL (0.7-4.9); Basophils % 0.6 % (0-1.3); Hematocrit 45.9 % (36.0-45.0); Lymphocytes % 25.1 % (15.3-44.8); RBC Red Blood Cell Count 5.01 M/uL (3.86-4.86)
[2020-07-23 19:51] LABS: Protime INR 1.12
[2020-07-23] MEDS ORDERED: HYDRALAZINE HCL 20 MG/ML VIAL ONE (19:58)
[2020-07-23 20:04] LABS: ALT/SGPT 13 U/L (12-78); AST/SGOT 16 U/L (15-37); Albumin 3.6 g/dL (3.4-5.0); Alkaline Phosphatase 135 U/L (45-117); BUN Blood Urea Nitrogen 16 mg/dL (7-18); Bicarbonate 25 mmol/L (21-32); Bilirubin Direct < 0.1 mg/dL (0-0.2); Bilirubin Total 0.3 mg/dL (0.2-1.0); Glucose Level 79 mg/dL (74-106); Magnesium 2.3 mg/dL (1.8-2.4); NT PRO-BNP 1128 pg/mL (<125); Potassium 3.2 mmol/L (3.5-5.1); Protein, Total 8.3 g/dL (6.4-8.2); Sodium Level 144 mmol/L (136-145); Troponin (Emerg Dept Use Only) < 0.02 ng/mL (0.0-0.045)
--- NOTE | 2020-07-23 20:34 | RAD REPORT ---
EXAM DESCRIPTION: RAD - Chest Single View - 07/23/2020 7:36 pm CLINICAL HISTORY: DYSPNEA COMPARISON: None TECHNIQUE: AP portable chest image was obtained 07/23/2020 7:36 pm . FINDINGS: No focal lung parenchymal process. No failure or volume overload. Mild prominence of the i nterstitial pattern believed be baseline. Heart and vasculature are normal. No measurable pleural eff usion and no pneumothorax. No acute bony abnormality seen. No acute aortic findings suspected. IMPRESSION: No acute cardiopulmonary process.
[2020-07-23 20:57] LABS: Urine Blood Negative (Negative); Urine Glucose Negative (Negative); Urine Protein Negative (Negative)
[2020-07-23] MEDS ORDERED: POTASSIUM CL SA 10 MEQ TAB PO ONE (20:57)
--- NOTE | 2020-07-23 21:01 | ER ---
Nurse's Notes [facility] Name: Cait Larose Age: 69 yrs Sex: Female : 1950 Arrival Date: 07/23/2020 Time: 18:32 Bed 2 Private MD: Diagnosis: Visual hallucinations Presentation: 07/23 18:33 Chief complaint: EMS states: Visual and auditory hallucinations x 3 days, also reports ph trouble sleeping, states, " I see my a lot, or I think I see my kids doing something wrong when they aren't. Then I thought I heard a truck running in the driveway that wasn't there." VSS, does take psychiatric medications but reports taking them as directed. Coronavirus screen: Client denies travel out of the [place] in the last 14 days. At this time, the client does not indicate any symptoms associated with coronavirus-19. Ebola Screen: No symptoms or risks identified at this time. Initial Sepsis Screen: Does the patient meet any 2 criteria? No. Patient's initial sepsis screen is negative. Does the patient have a suspected source of infection? No. Patient's initial sepsis screen is negative. Risk Assessment: Do you want to hurt yourself or someone else? Patient reports no desire to harm self or others. Onset of symptoms was July 23, 2020. 18:33 Method Of Arrival: EMS: [place] 18:33 Acuity: LESLEE 2 ph Historical: - Allergies: 18:39 unknown medication; ph - PMHx: 18:39 COPD; Hypertension; traumatic brain injury; ph - PSHx: 18:39 bone graft L leg; ph - Immunization history:: Client reports receiving the 2nd dose of the Covid vaccine. - Social history:: Smoking status: Patient reports the use of cigarette tobacco products, smokes one pack cigarettes per day. Screenin:40 Abuse screen: Denies threats or abuse. Denies injuries from another. Nutritional ph screening: No deficits noted. Tuberculosis screening: No symptoms or risk factors identified. Fall Risk None identified. Assessment: 18:41 General: Appears in no apparent distress. comfortable, Behavior is cooperative, ph appropriate for age, anxious, Denies fever, feeling ill. Pain: Denies pain. Neuro: Level of Consciousness is awake, alert, obeys commands, Oriented to person, place, situation. Cardiovascular: Capillary refill < 3 seconds in bilateral fingers Patient's skin is warm and dry. Respiratory: Airway is patent Respiratory effort is even, unlabored, Respiratory pattern is regular, symmetrical. GI: Reports. GI: No signs and/or symptoms were reported involving the gastrointestinal system. : Denies burning with urination, urinary frequency. Derm: Skin is intact, Skin is pink, warm \\T\\ dry. 19:40 Reassessment: Patient appears in no apparent distress at this time. Patient and/or jb4 family updated on plan of care and expected duration. Pain level reassessed. Patient is alert, oriented x 3, equal unlabored respirations, skin warm/dry/pink. Pt is back from CT. 20:48 Reassessment: Patient appears in no apparent distress at this time. Patient and/or jb4 family updated on plan of care and expected duration. Pain level reassessed. Patient is alert, oriented x 3, equal unlabored respirations, skin warm/dry/pink. Pt assisted to the restroom and back to bed via wheelchair with the Charge Nurse. Vital Signs: 18:33 BP 219 / 62; Pulse 75; Resp 24; Temp 98.2; Pulse Ox 98% on R/A; Weight 54.43 kg; ph 19:40 BP 204 / 80; Pulse 78; Resp 20; Pulse Ox 97% on R/A; jb4 20:00 BP 140 / 95; Pulse 88; Resp 30; Pulse Ox 98% on R/A; jb4 21:00 BP 183 / 77; Pulse 81; Resp 24; Pulse Ox 98% on R/A; jb4 ED Course: 18:30 Initial lab(s) drawn, by me, sent to lab. jp3 18:30 Maintain EMS IV. Dressing intact. Good blood return noted. Site clean \\T\\ dry. Gauge \\T\\ miriam 3 site: 22-gauge in Right wrist. Patient maintains SpO2 saturation greater than 95% on room air. 18:32 Patient arrived in ED. tr6 18:32 Leonor Lee, RN is Primary Nurse. ph 18:38 Triage completed. ph 18:39 Arm band placed on Patient placed in an exam room, on a stretcher, on monitoring manager, ph on pulse oximetry. 18:40 Patient has correct armband on for positive identification. Placed in gown. Bed in low ph position. Call light in reach. Side rails up X2. monitor tech on. Pulse ox on. NIBP on. Door closed. Noise minimized. Warm blanket given. Head of bed. 18:54 Troy Freeman PA is PHCP. corbin 18:54 Dianne Tomas MD is Attending Physician. [facility] 18:56 PHCP role handed off by Troy Freeman PA jr8 18:56 Gagandeep Shore PA is PHCP. jr8 19:27 CT Head Brain wo Cont In Process Unspecified. EDMS 19:34 XRAY Chest (1 view) In Process Unspecified. EDMS 19:42 Verbal reassurance given. Diet: Patient given ice chips. Patient given juice. Tolerated jp3 well. 19:54 Primary Nurse role handed off by Leonor Lee RN eb 19:54 EKG done, by ED staff, reviewed by Gagandeep GALVAN. tt3 20:29 Garrick Abel, RN is Primary Nurse. jb4 20:50 Urine collected: clean catch specimen. bb 21:00 Darci Fleming MD is Referral Physician. jr8 Administered Medications: 19:44 Drug: hydrALAZINE 10 mg Route: IVP; Site: right forearm; jb4 20:00 Follow up: Response: No adverse reaction; Marked relief of symptoms; Blood pressure is jb4 lowered 20:50 Drug: Potassium Chloride 40 mEq Route: PO; jb4 21:19 Follow up: Response: No adverse reaction jb4 Outcome: 21:00 Discharge ordered by . jr8 21:47 Patient left the ED. bb Signatures: Dispatcher [employer] EDMS Troy Freeman PA PA jmm Ballard, Brenda, RN RN bb Roszak, Josh, PA PA jr8 Leonor Lee RN RN ph Bryson, James, RYNE RN jb4 Jessica Alarcon Jacob 3 Jt Shaikh tt3 Marie Perkins RN RN tr6
--- NOTE | 2020-07-23 21:01 | EDPHYS ---
Physician Documentation [facility] Name: Cait Larose Age: 69 yrs Sex: Female : 1950 Arrival Date: 07/23/2020 Time: 18:32 Bed 2 Private MD: ED Physician Dianne Tomas HPI: 07/23 19:32 This 69 yrs old Female presents to ER via EMS with complaints of jr8 Hallucinations . 19:32 Onset: The symptoms/episode began/occurred gradually, 6 month(s) ago, and became worse jr8 today. Possible causes: sleep medicine that she was started back on last night. Associated signs and symptoms: The patient has no apparent associated signs or symptoms. Current symptoms: In the emergency department the patient's symptoms have resolved, the patient is alert and fully oriented, has normal speech, has normal responsiveness, has no confusion. Patient's baseline: Neuro: alert and fully oriented, Motor: no deficits, Ambulation: walks without assistance, Speech: normal. The patient has not recently seen a physician. Patient stated that every since her dies she "sees" him from time to time at the house. About six months ago had more vivid hallucinations about her grandchildren doing things they were not suppose to. Family stated that she was acute different today and thinks it may be her sleep medicine as this has happened once before when she started mirtazepine. Stated that she had been off of it for about a year and then took one last night. Patient stated that she felt very groggy this morning and then family stated that she started to slur her speech and was hallucinating more . Historical: - Allergies: 18:39 unknown medication; ph - PMHx: 18:39 COPD; Hypertension; traumatic brain injury; ph - PSHx: 18:39 bone graft L leg; ph - Immunization history:: Client reports receiving the 2nd dose of the Covid vaccine. - Social history:: Smoking status: Patient reports the use of cigarette tobacco products, smokes one pack cigarettes per day. ROS: 19:32 Eyes: Negative for injury, pain, redness, and discharge, ENT: Negative for injury, jr8 pain, and discharge, Neck: Negative for injury, pain, and swelling, Cardiovascular: Negative for chest pain, palpitations, and edema, Respiratory: Negative for shortness of breath, cough, wheezing, and pleuritic chest pain, Abdomen/GI: Negative for abdominal pain, nausea, vomiting, diarrhea, and constipation, Back: Negative for injury and pain, MS/Extremity: Negative for injury and deformity, Skin: Negative for injury, rash, and discoloration. 19:32 Neuro: Positive for altered mental status. Exam: 19:32 Constitutional: This is a well developed, well nourished patient who is awake, alert, jr8 and in no acute distress. Eyes: Pupils equal round and reactive to light, extra-ocular motions intact. Lids and lashes normal. Conjunctiva and sclera are non-icteric and not injected. Cornea within normal limits. Periorbital areas with no swelling, redness, or edema. ENT: Nares patent. No nasal discharge, no septal abnormalities noted. Tympanic membranes are normal and external auditory canals are clear. Oropharynx with no redness, swelling, or masses, exudates, or evidence of obstruction, uvula midline. Mucous membranes moist. Neck: Trachea midline, no thyromegaly or masses palpated, and no cervical lymphadenopathy. Supple, full range of motion without nuchal rigidity, or vertebral point tenderness. No Meningismus. Cardiovascular: Regular rate and rhythm with a normal S1 and S2. No gallops, murmurs, or rubs. Normal PMI, no JVD. No pulse deficits. Respiratory: Lungs have equal breath sounds bilaterally, clear to auscultation and percussion. No rales, rhonchi or wheezes noted. No increased work of breathing, no retractions or nasal flaring. Abdomen/GI: Soft, non-tender, with normal bowel sounds. No distension or tympany. No guarding or rebound. No evidence of tenderness throughout. Back: No spinal tenderness. No costovertebral tenderness. Full range of motion. Skin: Warm, dry with normal turgor. Normal color with no rashes, no lesions, and no evidence of cellulitis. MS/ Extremity: Pulses equal, no cyanosis. Neurovascular intact. Full, normal range of motion. Neuro: Awake and alert, GCS 15, oriented to person, place, time, and situation. Cranial nerves II-XII grossly intact. Motor strength 5/5 in all extremities. Sensory grossly intact. Cerebellar exam normal. Normal gait. Vital Signs: 18:33 BP 219 / 62; Pulse 75; Resp 24; Temp 98.2; Pulse Ox 98% on R/A; Weight 54.43 kg; ph 19:40 BP 204 / 80; Pulse 78; Resp 20; Pulse Ox 97% on R/A; jb4 20:00 BP 140 / 95; Pulse 88; Resp 30; Pulse Ox 98% on R/A; jb4 21:00 BP 183 / 77; Pulse 81; Resp 24; Pulse Ox 98% on R/A; jb4 MDM: 18:56 Patient medically screened. jr8 20:37 Data reviewed: vital signs, nurses notes, lab test result(s), EKG, radiologic studies, jr8 CT scan, plain films. Data interpreted: Pulse oximetry: on room air is 98 %. Interpretation: normal. Counseling: I had a detailed discussion with the patient and/or guardian regarding: the historical points, exam findings, and any diagnostic results supporting the discharge/admit diagnosis, lab results, radiology results. ED course: No acute findings on blood work or CT to identify patients hallucinations. The acute change could be related to the mirtazepine as stated earlier but patient has longstanding hallucinations for past 6 months. Patient has had one episode here but now back to normal. Non aggressive and not a danger to herself or others. VS are stable. At this time recommended further evaluation from a neurologist with out patient MRI and labs to further figure out if there is a more organic cause of the hallucinations vs psychiatric in nature. There is no further work up that we could do in our in-patient setting for the time being that would necessitate admission. Close return precautions given to her and family . 07/23 18:56 Order name: Basic Metabolic Panel; Complete Time: 20:14 07/23 18:56 Order name: CBC with Diff; Complete Time: 19:49 07/23 18:56 Order name: LFT's; Complete Time: 20:14 07/23 18:56 Order name: Magnesium; Complete Time: 20:14 07/23 18:56 Order name: NT PRO-BNP; Complete Time: 20:14 07/23 18:56 Order name: PT-INR; Complete Time: 20:14 07/23 18:56 Order name: Troponin (emerg Dept Use Only); Complete Time: 20:14 07/23 18:56 Order name: XRAY Chest (1 view); Complete Time: 20:37 [facility] 07/23 18:56 Order name: EKG; Complete Time: 18:57 [facility] 07/23 18:56 Order name: CT Head Brain wo Cont; Complete Time: 19:49 [facility] 07/23 20:23 Order name: Urine Microscopic Only [facility] 07/23 20:57 Order name: Urine Dipstick-Ancillary; Complete Time: 20:58 [facility] 07/23 18:56 Order name: Cardiac monitoring; Complete Time: 19:05 [facility] 07/23 18:56 Order name: EKG - Nurse/Tech; Complete Time: 19:55 [facility] 07/23 18:56 Order name: IV Saline Lock; Complete Time: 19:05 [facility] 07/23 18:56 Order name: Labs collected and sent; Complete Time: 19:05 [facility] 07/23 18:56 Order name: O2 Per Protocol; Complete Time: 19:04 [facility] 07/23 18:56 Order name: O2 Sat Monitoring; Complete Time: 19:04 [facility] 07/23 20:23 Order name: Urine Dipstick-Ancillary (obtain specimen); Complete Time: 21:10 jr8 Administered Medications: 19:44 Drug: hydrALAZINE 10 mg Route: IVP; Site: right forearm; jb4 20:00 Follow up: Response: No adverse reaction; Marked relief of symptoms; Blood pressure is jb4 lowered 20:50 Drug: Potassium Chloride 40 mEq Route: PO; jb4 21:19 Follow up: Response: No adverse reaction jb4 Disposition: 07/24 14:41 Co-signature as Attending Physician, Dianne Tomas MD. va2 Disposition: 07/23/20 21:00 Discharged to Home. Impression: Visual hallucinations. - Condition is Stable. - Discharge Instructions: Delirium. - Medication Reconciliation Form, Thank You Letter, Antibiotic Education, Prescription Opioid Use form. - Follow up: Darci Fleming MD; When: 5 - 6 days; Reason: Recheck today's complaints, Continuance of care, Re-evaluation by your physician. - Problem is new. - Symptoms have improved. Signatures: Dispatcher [employer] Sandy Irwin RN RN Gagandeep Aponte PA PA jr8 Leonor Lee RN RN ph Garrick Abel RN RN jb4 Dianne Tomas MD MD ma2 Corrections: (The following items were deleted from the chart) 07/23 21:47 21:00 07/23/2020 21:00 Discharged to Home. Impression: Visual hallucinations. Condition bb is Stable. Forms are Medication Reconciliation Form, Thank You Letter, Antibiotic Education, Prescription Opioid Use. Follow up: Darci Fleming; When: 5 - 6 days; Reason: Recheck today's complaints, Continuance of care, Re-evaluation by your physician. Problem is new. Symptoms have improved. jr8
[2020-07-23 21:37] LABS: Urine Bacteria <20 /HPF (<20); Urine RBC <5 /HPF (NONE SEEN)
[2020-07-23 21:53] VITALS: TEMP 98.2
[2020-07-23 21:56] VITALS: O2SAT 98
[2020-07-23 21:57] VITALS: BP 183/77
--- NOTE | 2020-07-24 09:45 | EKG ---
Test Date: 2020-07-23 Test Time: 19:48:31 [employer] Supervisor: DILLON MEASUREMENT RESULTS: Intervals: Rate: 84 AR: 158 QRSD: 74 QT: 366 QTc: 432 Reardan: P: 67 AR: 158 QRS: -31 T: 36 INTERPRETIVE STATEMENTS: Normal sinus rhythm Left axis deviation Nonspecific ST abnormality Abnormal ECG Compared to ECG 02/24/2002 04:31:00 Left-axis deviation now present ST (T wave) deviation now present Myocardial infarct finding no longer present Electronically Signed On 07-24-20 09:43:34 CDT by Alcides Perry
== END 2020-07-23 21:47 | disposition home or self-care (01) ==
LOC: ER 18:25
DX: R44.1 Visual hallucinations (principal); F17.210 Nicotine dependence, cigarettes, uncomplicated; J44.9 Chronic obstructive pulmonary disease, unspecified; I10 Essential (primary) hypertension; Z87.820 Personal history of traumatic brain injury
CPT/HCPCS: 93005; 85025; 80048; 36415; 83735; 85610; 80076; 84484; 83880; 70450; 71045; J0360; 81003; 81015; 96374; 99285

== ENCOUNTER 2020-10-14 11:07 | Day surgery (SDC) | payer OTHER ==
[2020-10-13 13:12] LABS: Potassium 4.4 mmol/L (3.5-5.1)
[2020-10-13 13:40] LABS: Absolute Lymphocytes (CBC) 1.4 K/uL (0.7-4.9); Basophils % 0.6 % (0-1.3); Hematocrit 49.1 % (36.0-45.0); Lymphocytes % 18.9 % (15.3-44.8); MPV 9.3 fL (7.6-11.3); RBC Red Blood Cell Count 5.18 M/uL (3.86-4.86)
[~2020-10-14 11:07] MED LIST: HEPA 1000U/500MLS 2,000 UNIT/1,000 ML BAG IV ONE; LIDOCAINE 1% 20 ML MDV ONE
[2020-10-14] MEDS ORDERED: NA CHLORIDE 0.9% 500 ML ONE ×2 (11:32→13:29)
[2020-10-14] MEDS ORDERED: MIDAZOLAM HCL 2 MG/2 ML INJ ONE (12:10)
[2020-10-14] MEDS ORDERED: FENTANYL CITR 100 MCG/2 ML ONE (12:11)
[2020-10-14] MEDS ORDERED: ATROPINE SULF 1 MG/10 ML SYR IV ONE (12:11)
[2020-10-14] MEDS ORDERED: HEPARIN 5000 UNIT/ML 1 ML VIAL ONE (12:11)
[2020-10-14] MEDS ORDERED: NITROGLYCERIN 100 MCG/ML SYR (for cath lab use only) IV ONE (12:11)
[2020-10-14] MEDS ORDERED: HEPARIN 10,000 UNIT/10 ML VIAL IV ONE (12:11)
[2020-10-14] MEDS ORDERED: VERAPAMIL HCL 10 MG/4 ML VIAL IV ONE (12:11)
[2020-10-14] MEDS ORDERED: NITROGLYCERIN/D5W 25 MG/250 ML BTL IV ONE (12:11)
[2020-10-14] MEDS ORDERED: HYDRALAZINE HCL 20 MG/ML VIAL ONE (12:45)
[2020-10-14] MEDS ORDERED: Phenylephrine HCl 10 MG/ML 1 ML VIAL ONE (13:13)
[2020-10-14] MEDS ORDERED: D5W 0 ML IV ONE (13:13)
[2020-10-14] MEDS ORDERED: ASPIRIN 325 MG TAB ONE (13:19)
[2020-10-14] MEDS ORDERED: CLOPIDOGREL 75 MG TABLET ONE (13:20)
--- NOTE | 2020-10-14 13:52 | RAD REPORT ---
EXAM DESCRIPTION: CTAngio Aorta For Dissection - 10/14/2020 1:35 pm CLINICAL HISTORY: rule out aortic dissection COMPARISON: No comparisons TECHNIQUE: CT of the chest, abdomen, and pelvis was performed. All CT scans are performed using dose optimization technique as appropriate and may include automated exposure control or mA/KV adjustment according to patient size.MIPS were performed. FINDINGS: Thorax: Chest Wall: No abnormal mass Lungs: No acute abnormality. Pleura: No effusions or pneumothorax. Carol/Mediastinum: No lymphadenopathy. Hiatal hernia which is small. Thoracic Aorta: No aneurysm. Calcified atherosclerosis is present. Left subclavian artery stent. No d issection. Aorta/Pulmonary Arteries: Unremarkable Heart: Normal size. Coronary artery calcifications. Abdomen/Pelvis: Liver: No acute abnormality or suspicious lesions. Biliary: No biliary ductal dilatation. Stomach: No significant focal abnormality. Duodenum: No significant focal abnormality. Pancreas: No significant abnormality. Spleen: No significant abnormality. Adrenal: No suspicious lesions. Kidney/ureter: Age indeterminate right lower pole renal infarct. The left kidney is nonenhancing and atrophic. Retroperitoneum: No retroperitoneal adenopathy. Vascular: Abdominal aortic atherosclerosis which includes the branch vessels. No aneurysm or dissecti on. Right groin arterial line in place. Bowel: No significant focal abnormality. Peritoneum: No ascites or free air. Bladder: Grossly unremarkable. Reproductive: No adnexal masses. Bones: No acute fracture. Prior fixation left hip. Other: n/a IMPRESSION: No evidence of aortic aneurysm or dissection. Atherosclerotic disease noted. 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 The right lower pole kidney is also in farcted. This too appears chronic. No acute findings identified
[2020-10-14 16:28] VITALS: O2SAT 97
[2020-10-14] MEDS ORDERED: ACETAMINOPHEN 325 MG TABLET ONE (18:49)
[2020-10-14 19:21] VITALS: BP 128/46
== END 2020-10-14 19:51 | disposition home or self-care (01) ==
LOC: CCL 11:07
PROVIDERS: ATTEND Internal Medicine
DX: T82.855A Stenosis of coronary artery stent, initial encounter (principal); I25.10 Atherosclerotic heart disease of native coronary artery without angina pectoris; I10 Essential (primary) hypertension; E78.5 Hyperlipidemia, unspecified; Z87.891 Personal history of nicotine dependence; Z20.822 Contact with and (suspected) exposure to COVID-19; Z82.49 Family history of ischemic heart disease and other diseases of the circulatory system
CPT/HCPCS: 85025; 80048; 36415; 85610; 85347 ×6; 85730; 71275; 74175; 92920; 93458; U0003; Q9967; C1893; C1725; J0360; J1644 ×2; J2250; J3010; J2370; J7060; J7040 ×2